=== PATIENT | female | born 1955 | race Caucasian/White ===

== ENCOUNTER 2017-04-21 10:36 | Inpatient (IN) | payer MEDICARE, SELFPAY ==
[~2017-04-21] VITALS: Ht 154.9 cm; Wt 73.0 kg
[~2017-04-21 10:36] MED LIST: ALBU90OI INH; ATEN25 PO; CALCA500CH PO; CIPR500; CIPR500 PO; CYCL10 PO; Cholestyramine L4 GM PO; ESTR1 PO; FAMO20 PO; HYDACE5 PO; Hydrochloroth12.5 MG PO; LEVSOD100; LEVSOD137 PO; LEVSOD25; LOSA50 PO; LOSHYD100 PO; METR500 PO; MULVITMIND PO; ONDA4ODT PO; PROBIOTIC1 EAC1 PO; TELM40 PO; TELM80/12.5 PO; TRAM50 PO; TRIA80TC TOP; VALS80; [UNRECOGNIZED DRUG - REMARK]
[2017-04-21 11:15] LABS: BASOPHILS ABSOLUTE AUTO 0.05 K/mm3 (0.00-0.23); BASOPHILS PERCENT AUTO 0 % (0-2); EOSINOPHILS PERCENT AUTO 0 % (0-6); Hematocrit 40.5 % (33.0-51.0); IMMATURE GRAN ABSOLUTE AUTO 0.16 K/mm3 (0.00-0.10); IMMATURE GRAN PERCENT AUTO 1 % (0-1); LYMPHOCYTES ABSOLUTE AUTO 0.66 K/mm3 (0.84-5.20); LYMPHOCYTES PERCENT AUTO 3 % (21-46); MONOCYTES ABSOLUTE AUTO 1.03 K/mm3 (0.16-1.47); MONOCYTES PERCENT AUTO 5 % (4-13); Mean Corpuscular HGB 30.8 pg (26.0-34.0); Mean Corpuscular HGB Conc 34.6 g/dL (31.5-36.5); Mean Corpuscular Volume 89 fL (80-100); NEUTROPHILS ABSOLUTE AUTO 18.78 K/mm3 (1.96-9.15); NEUTROPHILS PERCENT AUTO 91 % (41-73); RDW Coefficient Variation 12.2 % (11.7-14.2); Red Blood Cell Count 4.54 M/mm3 (3.80-5.20); White Blood Cell Count 20.68 K/mm3 (4.00-11.30)
[2017-04-21 11:16] LABS: Mean Platelet Volume 9.2 fL (9.1-12.4); Platelet Count 321 K/mm3 (150-400)
[2017-04-21 11:39] LABS: Albumin, Blood 3.1 g/dL (3.4-5.0); Albumin/Globulin Ratio 0.6 (0.8-1.8); Bilirubin, Total 0.6 mg/dL (0.1-1.0); Calcium, Blood 8.4 mg/dL (8.5-10.1); Creatinine, Blood 2.22 mg/dL (0.40-1.00); Potassium, Blood 2.9 mmol/L (3.5-5.5); Total Protein, Blood 8.1 g/dL (6.4-8.2); Troponin I 0.142 ng/mL (0.000-0.040)
[2017-04-21 11:39] LABS: Source, Urine Clean Catch
[2017-04-21 11:48] LABS: Appearance, Urine Cloudy (Clear); Bilirubin, Urine Neg (Neg); Blood, Urine 3+ (Neg); Color, Urine Yellow (P-Yellow); Glucose Qualitative, Urine Neg (Neg); Ketones, Urine Neg (Neg); Leukocyte Esterase, Urine 2+ (Neg); Nitrite, Urine Neg (Neg); Protein, Urine 3+ (Neg); Specific Gravity, Urine 1.025 (1.003-1.022); Urobilinogen, Urine NORM (Normal)
[2017-04-21 12:12] LABS: Bacteria Few /hpf; Squamous Epithelial Cells Rare /hpf (Few)
[2017-04-21 12:14] LABS: Amorphous Mod (0-Heavy)
[2017-04-21 18:06] LABS: Bun/Creatinine Ratio 21.9 (12.0-20.0); Calcium, Blood 7.7 mg/dL (8.5-10.1); Creatinine, Blood 1.55 mg/dL (0.40-1.00); Potassium, Blood 2.9 mmol/L (3.5-5.5); Troponin I 0.127 ng/mL (0.000-0.040)
[2017-04-21 23:25] LABS: Bun/Creatinine Ratio 24.3 (12.0-20.0); Creatinine, Blood 1.15 mg/dL (0.40-1.00); Potassium, Blood 3.1 mmol/L (3.5-5.5)
[2017-04-21 23:26] LABS: Calcium, Blood 6.6 mg/dL (8.5-10.1)
[2017-04-21 23:27] LABS: Magnesium, Blood 1.1 mg/dL (1.6-2.4)
[2017-04-22 04:13] LABS: BASOPHILS ABSOLUTE AUTO 0.02 K/mm3 (0.00-0.23); BASOPHILS PERCENT AUTO 0 % (0-2); EOSINOPHILS PERCENT AUTO 0 % (0-6); Hematocrit 36.6 % (33.0-51.0); Hemoglobin 11.9 g/dL (11.5-16.0); IMMATURE GRAN ABSOLUTE AUTO 0.11 K/mm3 (0.00-0.10); IMMATURE GRAN PERCENT AUTO 1 % (0-1); LYMPHOCYTES ABSOLUTE AUTO 0.56 K/mm3 (0.84-5.20); LYMPHOCYTES PERCENT AUTO 4 % (21-46); MONOCYTES ABSOLUTE AUTO 1.07 K/mm3 (0.16-1.47); MONOCYTES PERCENT AUTO 8 % (4-13); Mean Corpuscular HGB 30.8 pg (26.0-34.0); Mean Corpuscular HGB Conc 32.5 g/dL (31.5-36.5); Mean Platelet Volume 9.6 fL (9.1-12.4); NEUTROPHILS ABSOLUTE AUTO 11.87 K/mm3 (1.96-9.15); NEUTROPHILS PERCENT AUTO 87 % (41-73); Platelet Count 190 K/mm3 (150-400); RDW Coefficient Variation 12.4 % (11.7-14.2); RDW Standard Deviation 43.3 fL (35.1-46.3); Red Blood Cell Count 3.86 M/mm3 (3.80-5.20); White Blood Cell Count 13.63 K/mm3 (4.00-11.30)
[2017-04-22 04:17] LABS: Mean Corpuscular Volume 95 fL (80-100)
[2017-04-22 04:37] LABS: Albumin, Blood 2.2 g/dL (3.4-5.0); Anion Gap 15 mmol/L (6-16); Blood Urea Nitrogen 26 mg/dL (8-24); Bun/Creatinine Ratio 24.5 (12.0-20.0); CO2, Blood 16 mmol/L (21-32); Calcium, Blood 7.2 mg/dL (8.5-10.1); Chloride, Blood 98 mmol/L (98-108); Creatinine, Blood 1.06 mg/dL (0.40-1.00); Glomerular Filtration Rate 56 (60-); Glucose, Blood 63 mg/dL (70-99); Magnesium, Blood 2.5 mg/dL (1.6-2.4); Potassium, Blood 3.3 mmol/L (3.5-5.5); Sodium, Blood 129 mmol/L (136-145)
[2017-04-22 12:50] LABS: Alanine Aminotransfer (ALT/SGP 18 U/L (12-78); Alk Phos 76 U/L (50-136); Anion Gap 10 mmol/L (6-16); Aspartate Aminotrans (AST/SGOT 19 U/L (12-37); Bilirubin, Total 0.2 mg/dL (0.1-1.0); Blood Urea Nitrogen 16 mg/dL (8-24); Bun/Creatinine Ratio 18.9 (12.0-20.0); CO2, Blood 20 mmol/L (21-32); Calcium, Blood 6.6 mg/dL (8.5-10.1); Chloride, Blood 99 mmol/L (98-108); Creatinine, Blood 0.85 mg/dL (0.40-1.00); Glomerular Filtration Rate >60 (60-); Glucose, Blood 82 mg/dL (70-99); Magnesium, Blood 2.4 mg/dL (1.6-2.4); Potassium, Blood 3.2 mmol/L (3.5-5.5); Sodium, Blood 129 mmol/L (136-145)
[2017-04-22 12:51] LABS: Albumin/Globulin Ratio 0.5 (0.8-1.8); Globulin, Blood 3.8 g/dL (2.2-4.0)
[2017-04-22 13:31] LABS: Total Protein, Blood 5.8 g/dL (6.4-8.2)
[2017-04-23 01:11] LABS: Anion Gap 11 mmol/L (6-16); Blood Urea Nitrogen 11 mg/dL (8-24); Bun/Creatinine Ratio 14.6 (12.0-20.0); CO2, Blood 19 mmol/L (21-32); Chloride, Blood 100 mmol/L (98-108); Creatinine, Blood 0.75 mg/dL (0.40-1.00); Glomerular Filtration Rate >60 (60-); Glucose, Blood 89 mg/dL (70-99); Magnesium, Blood 1.7 mg/dL (1.6-2.4); Phosphorus, Blood 1.5 mg/dL (2.5-4.9); Potassium, Blood 3.5 mmol/L (3.5-5.5); Sodium, Blood 130 mmol/L (136-145)
[2017-04-23 04:20] LABS: BASOPHILS ABSOLUTE AUTO 0.02 K/mm3 (0.00-0.23); BASOPHILS PERCENT AUTO 0 % (0-2); EOSINOPHILS ABSOLUTE AUTO 0.02 K/mm3 (0.00-0.68); EOSINOPHILS PERCENT AUTO 0 % (0-6); Hematocrit 28.8 % (33.0-51.0); Hemoglobin 9.8 g/dL (11.5-16.0); IMMATURE GRAN ABSOLUTE AUTO 0.04 K/mm3 (0.00-0.10); IMMATURE GRAN PERCENT AUTO 1 % (0-1); LYMPHOCYTES ABSOLUTE AUTO 0.59 K/mm3 (0.84-5.20); LYMPHOCYTES PERCENT AUTO 10 % (21-46); MONOCYTES ABSOLUTE AUTO 0.48 K/mm3 (0.16-1.47); MONOCYTES PERCENT AUTO 8 % (4-13); Mean Corpuscular HGB 31.2 pg (26.0-34.0); NEUTROPHILS PERCENT AUTO 81 % (41-73); Platelet Count 165 K/mm3 (150-400); RDW Coefficient Variation 12.4 % (11.7-14.2); RDW Standard Deviation 41.2 fL (35.1-46.3); Red Blood Cell Count 3.14 M/mm3 (3.80-5.20); White Blood Cell Count 6.15 K/mm3 (4.00-11.30)
[2017-04-23 04:21] LABS: Mean Corpuscular Volume 92 fL (80-100)
[2017-04-23 04:35] LABS: Anion Gap 9 mmol/L (6-16); Blood Urea Nitrogen 10 mg/dL (8-24); Bun/Creatinine Ratio 13.3 (12.0-20.0); CO2, Blood 21 mmol/L (21-32); Chloride, Blood 101 mmol/L (98-108); Creatinine, Blood 0.75 mg/dL (0.40-1.00); Glomerular Filtration Rate >60 (60-); Glucose, Blood 108 mg/dL (70-99); Potassium, Blood 3.5 mmol/L (3.5-5.5); Sodium, Blood 131 mmol/L (136-145)
[2017-04-24 04:56] LABS: BASOPHILS ABSOLUTE AUTO 0.02 K/mm3 (0.00-0.23); BASOPHILS PERCENT AUTO 0 % (0-2); EOSINOPHILS ABSOLUTE AUTO 0.07 K/mm3 (0.00-0.68); EOSINOPHILS PERCENT AUTO 1 % (0-6); Hematocrit 29.9 % (33.0-51.0); Hemoglobin 9.9 g/dL (11.5-16.0); IMMATURE GRAN ABSOLUTE AUTO 0.04 K/mm3 (0.00-0.10); IMMATURE GRAN PERCENT AUTO 1 % (0-1); LYMPHOCYTES ABSOLUTE AUTO 0.77 K/mm3 (0.84-5.20); LYMPHOCYTES PERCENT AUTO 15 % (21-46); MONOCYTES ABSOLUTE AUTO 0.45 K/mm3 (0.16-1.47); MONOCYTES PERCENT AUTO 9 % (4-13); Mean Corpuscular HGB 30.4 pg (26.0-34.0); Mean Corpuscular HGB Conc 33.1 g/dL (31.5-36.5); Mean Corpuscular Volume 92 fL (80-100); Mean Platelet Volume 9.1 fL (9.1-12.4); NEUTROPHILS ABSOLUTE AUTO 3.86 K/mm3 (1.96-9.15); NEUTROPHILS PERCENT AUTO 74 % (41-73); Platelet Count 200 K/mm3 (150-400); RDW Coefficient Variation 12.3 % (11.7-14.2); RDW Standard Deviation 41.3 fL (35.1-46.3); Red Blood Cell Count 3.26 M/mm3 (3.80-5.20); White Blood Cell Count 5.21 K/mm3 (4.00-11.30)
[2017-04-24 05:18] LABS: Anion Gap 8 mmol/L (6-16); Blood Urea Nitrogen 7 mg/dL (8-24); Bun/Creatinine Ratio 11.2 (12.0-20.0); CO2, Blood 25 mmol/L (21-32); Calcium, Blood 7.6 mg/dL (8.5-10.1); Chloride, Blood 101 mmol/L (98-108); Creatinine, Blood 0.63 mg/dL (0.40-1.00); Glomerular Filtration Rate >60 (60-); Glucose, Blood 89 mg/dL (70-99); Potassium, Blood 3.5 mmol/L (3.5-5.5); Sodium, Blood 134 mmol/L (136-145)
[2017-04-25] MEDS ORDERED: CEFD300 PO (12:12)
[2017-07-10] MEDS ORDERED: LOSARTAN POTAS100 MG PO (21:11)
[2017-07-10] MEDS ORDERED: PROM25 PO (22:04)
[2017-07-10] MEDS ORDERED: Levaquin750 MG PO (22:04)
[2017-07-21] MEDS ORDERED: HYDROCODON-ACE1 EAC4 PO (13:56)
== END 2017-04-25 13:10 | disposition home or self-care (01) | DRG 871 ==
LOC: ER 10:36 → MEDS 13:19 → PCU 13:19 → MEDS 14:35 → ICUW 17:48 → PCU 04-23 13:25
PROVIDERS: Emergency Medicine; Family Medicine; Hospitalist
DX: A41.51 Sepsis due to Escherichia coli [E. coli] (principal); R65.21 Severe sepsis with septic shock; N17.9 Acute kidney failure, unspecified; N10 Acute pyelonephritis; E87.1 Hypo-osmolality and hyponatremia; I10 Essential (primary) hypertension; E88.09 Other disorders of plasma-protein metabolism, not elsewhere classified; E86.9 Volume depletion, unspecified; E03.9 Hypothyroidism, unspecified; R19.7 Diarrhea, unspecified; B96.20 Unspecified Escherichia coli [E. coli] as the cause of diseases classified elsewhere; E87.6 Hypokalemia; Z85.118 Personal history of other malignant neoplasm of bronchus and lung; Z92.21 Personal history of antineoplastic chemotherapy; Z90.2 Acquired absence of lung [part of]; Z87.891 Personal history of nicotine dependence; Z88.6 Allergy status to analgesic agent; Z91.041 Radiographic dye allergy status; Z88.0 Allergy status to penicillin; Z91.09 Other allergy status, other than to drugs and biological substances; Z90.49 Acquired absence of other specified parts of digestive tract
CPT/HCPCS: 36415; 51798; 74176; 80048; 80053; 80069; 81001; 82330; 82947; 83605; 83690; 83735; 84100; 84484; 85025; 86140; 87040; 87077; 87086; 87186; 87493; 93005; 93010; 93306; 94640; 94760; 96361; 96374; 96375; 96376; 97116; 97161; 97530; 99285; C1751; C9113; G8978; G8979; J0360; J0610; J0692; J0696; J1170; J1650; J1956; J2001; J2405; J2765; J3010; J3475; J3480; J7030; J7040; J7050; J7060

== ENCOUNTER → 2017-10-02 | Outpatient (CLI) | payer MEDICARE, SELFPAY ==
[~2017-10-02] MED LIST changes: +CEFD300 PO; +HYDROCODON-ACE1 EAC4 PO; +LOSARTAN POTAS100 MG PO; +Levaquin750 MG PO; +PROM25 PO
[2017-10-03 08:00] LABS: Adenovirus F 40/41 Not Detected (NOT DETECT); Astrovirus Not Detected (NOT DETECT); Campylobacter Sp Not Detected (NOT DETECT); Cryptosporidium Not Detected (NOT DETECT); Cyclospora Cayetanensis Not Detected (NOT DETECT); E. Coli O157 Not Detected (NOT DETECT); Entamoeba Histolytica Not Detected (NOT DETECT); Enteroaggregative E. coli-EAEC Not Detected (NOT DETECT); Enteropathogenic E. coli-EPEC Not Detected (NOT DETECT); Enterotoxigenic E. coli-ETEC Not Detected (NOT DETECT); Giardia Lamblia Not Detected (NOT DETECT); Norovirus GI/GII Not Detected (NOT DETECT); Plesiomonas Shigelloides Not Detected (NOT DETECT); Rotavirus A Not Detected (NOT DETECT); Salmonella Sp Not Detected (NOT DETECT); Sapovirus Not Detected (NOT DETECT); Shiga Toxin-prod E. coli-STEC Not Detected (NOT DETECT); Shigella/Enteroin E. coli-EIEC Not Detected (NOT DETECT); Vibrio Cholerae Not Detected (NOT DETECT); Vibrio Sp Not Detected (NOT DETECT); Yersinia Enterocolitica Not Detected (NOT DETECT)
== END ==
LOC: LAB 11:00 → LAB FUT 09-29 12:05
PROVIDERS: Internal Medicine Gastroenterology
DX: R11.2 Nausea with vomiting, unspecified (principal); R19.7 Diarrhea, unspecified
CPT/HCPCS: 87507

== ENCOUNTER 2017-10-11 09:00 | Day surgery (SDC) | payer MEDICARE, SELFPAY ==
[~2017-10-11] VITALS: Ht 154.9 cm; Wt 68.0 kg
== END 2017-10-11 11:45 | disposition home or self-care (01) ==
LOC: ORSCSDS 09:00
PROVIDERS: Internal Medicine Gastroenterology
PROC: 0DB68ZX Excision of Stomach, Via Natural or Artificial Opening Endoscopic, Diagnostic (ICD-10-PCS; principal; 2017-10-11 10:30)
PROC: 0DBN8ZX Excision of Sigmoid Colon, Via Natural or Artificial Opening Endoscopic, Diagnostic (ICD-10-PCS; principal; 2017-10-11 10:30)
DX: R19.7 Diarrhea, unspecified (principal); R11.2 Nausea with vomiting, unspecified; K25.3 Acute gastric ulcer without hemorrhage or perforation; K63.5 Polyp of colon; K29.70 Gastritis, unspecified, without bleeding; Z86.010 Personal history of colon polyps; K57.30 Diverticulosis of large intestine without perforation or abscess without bleeding; I10 Essential (primary) hypertension; Z87.891 Personal history of nicotine dependence; E03.9 Hypothyroidism, unspecified; Z79.899 Other long term (current) drug therapy
CPT/HCPCS: 87081; 88305; 88342; J1980; J7120

== ENCOUNTER → 2017-11-20 | Outpatient (CLI) | payer MEDICARE ==
[2017-11-21 09:52] LABS: Adenovirus F 40/41 Not Detected (NOT DETECT); Astrovirus Not Detected (NOT DETECT); Campylobacter Sp Not Detected (NOT DETECT); Cryptosporidium Not Detected (NOT DETECT); Cyclospora Cayetanensis Not Detected (NOT DETECT); E. Coli O157 Not Detected (NOT DETECT); Entamoeba Histolytica Not Detected (NOT DETECT); Enteroaggregative E. coli-EAEC Not Detected (NOT DETECT); Enteropathogenic E. coli-EPEC Not Detected (NOT DETECT); Enterotoxigenic E. coli-ETEC Not Detected (NOT DETECT); Giardia Lamblia Not Detected (NOT DETECT); Norovirus GI/GII Not Detected (NOT DETECT); Plesiomonas Shigelloides Not Detected (NOT DETECT); Rotavirus A Not Detected (NOT DETECT); Salmonella Sp Not Detected (NOT DETECT); Sapovirus Not Detected (NOT DETECT); Shiga Toxin-prod E. coli-STEC Not Detected (NOT DETECT); Shigella/Enteroin E. coli-EIEC Not Detected (NOT DETECT); Vibrio Cholerae Not Detected (NOT DETECT); Vibrio Sp Not Detected (NOT DETECT); Yersinia Enterocolitica Not Detected (NOT DETECT)
== END | disposition home or self-care (01) ==
LOC: LAB 11:30 → LAB SHORT 11:30 → EDSTATUS 11-15 11:00 → LAB FUT 11-15 11:00
PROVIDERS: Internal Medicine Gastroenterology
DX: R19.7 Diarrhea, unspecified (principal)
CPT/HCPCS: 87507

== ENCOUNTER 2017-12-08 13:04 | Inpatient (IN) | payer MEDICARE ==
[~2017-12-08] VITALS: Ht 154.9 cm; Wt 72.8 kg
[2017-12-08 13:40] LABS: Source, Urine Clean Catch
[2017-12-08 13:45] LABS: BASOPHILS ABSOLUTE AUTO 0.05 K/mm3 (0.00-0.23); BASOPHILS PERCENT AUTO 0 % (0-2); EOSINOPHILS ABSOLUTE AUTO 0.02 K/mm3 (0.00-0.68); EOSINOPHILS PERCENT AUTO 0 % (0-6); Hematocrit 45.9 % (33.0-51.0); Hemoglobin 16.4 g/dL (11.5-16.0); IMMATURE GRAN ABSOLUTE AUTO 0.08 K/mm3 (0.00-0.10); IMMATURE GRAN PERCENT AUTO 1 % (0-1); LYMPHOCYTES ABSOLUTE AUTO 1.07 K/mm3 (0.84-5.20); LYMPHOCYTES PERCENT AUTO 7 % (21-46); MONOCYTES ABSOLUTE AUTO 1.06 K/mm3 (0.16-1.47); MONOCYTES PERCENT AUTO 7 % (4-13); Mean Corpuscular HGB 32.3 pg (26.0-34.0); Mean Corpuscular HGB Conc 35.7 g/dL (31.5-36.5); Mean Corpuscular Volume 91 fL (80-100); NEUTROPHILS PERCENT AUTO 85 % (41-73); Platelet Count 361 K/mm3 (150-400); RDW Standard Deviation 39.7 fL (35.1-46.3); Red Blood Cell Count 5.07 M/mm3 (3.80-5.20); White Blood Cell Count 15.58 K/mm3 (4.00-11.30)
[2017-12-08 13:46] LABS: Appearance, Urine Turbid (Clear); Blood, Urine 5+ (Neg); Color, Urine Amber (P-Yellow); Glucose Qualitative, Urine Neg (Neg); Ketones, Urine Neg (Neg); Leukocyte Esterase, Urine 3+ (Neg); Nitrite, Urine Pos (Neg); Protein, Urine 4+ (Neg); Specific Gravity, Urine 1.025 (1.003-1.022); Urobilinogen, Urine 3+ (Normal)
[2017-12-08 13:57] LABS: Bilirubin, Urine 3+ (Neg)
[2017-12-08 13:58] LABS: Red Blood Cells, Urine TNTC /hpf (0-2); White Blood Cells, Urine TNTC /hpf (0-5)
[2017-12-08 13:59] LABS: Bacteria Many /hpf; Squamous Epithelial Cells Rare /hpf (Few)
[2017-12-08 14:13] LABS: Alanine Aminotransfer (ALT/SGP 42 U/L (12-78); Albumin/Globulin Ratio 0.9 (0.8-1.8); Alk Phos 121 U/L (50-136); Anion Gap 14 mmol/L (6-16); Aspartate Aminotrans (AST/SGOT 27 U/L (12-37); Bilirubin, Total 0.8 mg/dL (0.1-1.0); Blood Urea Nitrogen 12 mg/dL (8-24); Bun/Creatinine Ratio 15.3 (12.0-20.0); CO2, Blood 25 mmol/L (21-32); Calcium, Blood 9.9 mg/dL (8.5-10.1); Chloride, Blood 91 mmol/L (98-108); Creatinine, Blood 0.79 mg/dL (0.40-1.00); Globulin, Blood 4.5 g/dL (2.2-4.0); Glomerular Filtration Rate >60 (60-); Glucose, Blood 163 mg/dL (70-99); Potassium, Blood 3.3 mmol/L (3.5-5.5); Sodium, Blood 130 mmol/L (136-145); Total Protein, Blood 8.5 g/dL (6.4-8.2)
[2017-12-08] MEDS ORDERED: VANC250 PO (16:33)
[2017-12-08] MEDS ORDERED: LEVSOD125 PO (16:33)
[2017-12-08] MEDS ORDERED: OMEPRAZOLE20 MG PO (16:33)
[2017-12-08] MEDS ORDERED: Prochlorperazin10 MG PO (16:33)
[2017-12-09 05:39] LABS: BASOPHILS ABSOLUTE AUTO 0.03 K/mm3 (0.00-0.23); BASOPHILS PERCENT AUTO 1 % (0-2); EOSINOPHILS ABSOLUTE AUTO 0.07 K/mm3 (0.00-0.68); EOSINOPHILS PERCENT AUTO 1 % (0-6); Hematocrit 30.6 % (33.0-51.0); Hemoglobin 10.6 g/dL (11.5-16.0); IMMATURE GRAN ABSOLUTE AUTO 0.01 K/mm3 (0.00-0.10); IMMATURE GRAN PERCENT AUTO 0 % (0-1); LYMPHOCYTES ABSOLUTE AUTO 1.23 K/mm3 (0.84-5.20); LYMPHOCYTES PERCENT AUTO 20 % (21-46); MONOCYTES ABSOLUTE AUTO 0.43 K/mm3 (0.16-1.47); MONOCYTES PERCENT AUTO 7 % (4-13); Mean Corpuscular HGB 32.8 pg (26.0-34.0); Mean Corpuscular HGB Conc 34.6 g/dL (31.5-36.5); Mean Platelet Volume 8.8 fL (9.1-12.4); NEUTROPHILS ABSOLUTE AUTO 4.36 K/mm3 (1.96-9.15); NEUTROPHILS PERCENT AUTO 71 % (41-73); Platelet Count 190 K/mm3 (150-400); RDW Coefficient Variation 12.2 % (11.7-14.2); RDW Standard Deviation 42.5 fL (35.1-46.3); Red Blood Cell Count 3.23 M/mm3 (3.80-5.20); White Blood Cell Count 6.13 K/mm3 (4.00-11.30)
[2017-12-09 05:40] LABS: Mean Corpuscular Volume 95 fL (80-100)
[2017-12-09 06:13] LABS: Anion Gap 10 mmol/L (6-16); Blood Urea Nitrogen 8 mg/dL (8-24); Bun/Creatinine Ratio 11.2 (12.0-20.0); CO2, Blood 23 mmol/L (21-32); Calcium, Blood 7.3 mg/dL (8.5-10.1); Chloride, Blood 102 mmol/L (98-108); Creatinine, Blood 0.71 mg/dL (0.40-1.00); Glomerular Filtration Rate >60 (60-); Glucose, Blood 119 mg/dL (70-99); Potassium, Blood 3.1 mmol/L (3.5-5.5); Sodium, Blood 135 mmol/L (136-145)
[2017-12-09] MEDS ORDERED: BUDE6HFA INH (16:20)
[2017-12-10 10:34] LABS: BASOPHILS ABSOLUTE AUTO 0.03 K/mm3 (0.00-0.23); BASOPHILS PERCENT AUTO 0 % (0-2); EOSINOPHILS ABSOLUTE AUTO 0.05 K/mm3 (0.00-0.68); EOSINOPHILS PERCENT AUTO 1 % (0-6); Hematocrit 33.1 % (33.0-51.0); Hemoglobin 11.2 g/dL (11.5-16.0); IMMATURE GRAN ABSOLUTE AUTO 0.03 K/mm3 (0.00-0.10); IMMATURE GRAN PERCENT AUTO 0 % (0-1); LYMPHOCYTES ABSOLUTE AUTO 0.66 K/mm3 (0.84-5.20); LYMPHOCYTES PERCENT AUTO 9 % (21-46); MONOCYTES ABSOLUTE AUTO 0.69 K/mm3 (0.16-1.47); MONOCYTES PERCENT AUTO 9 % (4-13); Mean Corpuscular HGB 32.6 pg (26.0-34.0); Mean Corpuscular HGB Conc 33.8 g/dL (31.5-36.5); Mean Corpuscular Volume 96 fL (80-100); Mean Platelet Volume 9.1 fL (9.1-12.4); NEUTROPHILS ABSOLUTE AUTO 6.21 K/mm3 (1.96-9.15); NEUTROPHILS PERCENT AUTO 81 % (41-73); Platelet Count 199 K/mm3 (150-400); RDW Coefficient Variation 12.2 % (11.7-14.2); RDW Standard Deviation 42.6 fL (35.1-46.3); Red Blood Cell Count 3.44 M/mm3 (3.80-5.20); White Blood Cell Count 7.67 K/mm3 (4.00-11.30)
[2017-12-10 10:51] LABS: Anion Gap 10 mmol/L (6-16); Blood Urea Nitrogen 4 mg/dL (8-24); Bun/Creatinine Ratio 7.2 (12.0-20.0); CO2, Blood 26 mmol/L (21-32); Calcium, Blood 7.4 mg/dL (8.5-10.1); Chloride, Blood 97 mmol/L (98-108); Creatinine, Blood 0.55 mg/dL (0.40-1.00); Glomerular Filtration Rate >60 (60-); Glucose, Blood 109 mg/dL (70-99); Potassium, Blood 3.1 mmol/L (3.5-5.5); Sodium, Blood 133 mmol/L (136-145)
[2017-12-10] MEDS ORDERED: HYDR1TAB94 PO (13:31)
[2017-12-10] MEDS ORDERED: OMEPRAZOLE MAGN20 MG PO (13:32)
[2017-12-10] MEDS ORDERED: K-Dur 20 meq T20 MEQ PO (13:33)
[2017-12-10] MEDS ORDERED: VANC125 PO (13:34)
[2017-12-10] MEDS ORDERED: AMLO5 PO (13:35)
[2017-12-10] MEDS ORDERED: CEFD300 PO (13:35)
== END 2017-12-10 14:12 | disposition home or self-care (01) | DRG 690 ==
LOC: ER 13:04 → MEDS 15:10 → ENPENDDIS 12-10 11:00 → MEDS 12-10 14:12
PROVIDERS: Emergency Medicine; Hospitalist; Internal Medicine
DX: N10 Acute pyelonephritis (principal); E87.1 Hypo-osmolality and hyponatremia; N39.0 Urinary tract infection, site not specified; E87.6 Hypokalemia; J44.9 Chronic obstructive pulmonary disease, unspecified; I10 Essential (primary) hypertension; R11.10 Vomiting, unspecified; E03.9 Hypothyroidism, unspecified; Z85.118 Personal history of other malignant neoplasm of bronchus and lung; Z92.21 Personal history of antineoplastic chemotherapy; Z87.891 Personal history of nicotine dependence; Z88.6 Allergy status to analgesic agent; Z88.5 Allergy status to narcotic agent; Z88.0 Allergy status to penicillin; Z88.8 Allergy status to other drugs, medicaments and biological substances; Z79.899 Other long term (current) drug therapy
CPT/HCPCS: 36415; 51798; 80048; 80053; 81001; 83605; 83690; 85025; 87077; 87086; 87186; 87493; 94640; 94667; 94760; 96361; 96365; 96375; 99284-25; J0696; J0744; J0780; J1650; J2405; J3480; J7030

== ENCOUNTER 2018-08-08 05:33 | Inpatient (IN) | payer MEDICARE ==
[~2018-08-08] VITALS: Ht 154.9 cm; Wt 66.2 kg
[~2018-08-08 05:33] MED LIST changes: +AMLO5 PO; +BUDE6HFA INH; +HYDR1TAB94 PO; +K-Dur 20 meq T20 MEQ PO; +LEVSOD125 PO; +OMEPRAZOLE MAGN20 MG PO; +OMEPRAZOLE20 MG PO; +Prochlorperazin10 MG PO; +VANC125 PO; +VANC250 PO
[2018-08-08 06:04] LABS: BASOPHILS ABSOLUTE AUTO 0.03 K/mm3 (0.00-0.23); BASOPHILS PERCENT AUTO 0 % (0-2); EOSINOPHILS PERCENT AUTO 0 % (0-6); Hematocrit 52.8 % (33.0-51.0); IMMATURE GRAN ABSOLUTE AUTO 0.08 K/mm3 (0.00-0.10); IMMATURE GRAN PERCENT AUTO 1 % (0-1); LYMPHOCYTES ABSOLUTE AUTO 1.28 K/mm3 (0.84-5.20); LYMPHOCYTES PERCENT AUTO 8 % (21-46); MONOCYTES ABSOLUTE AUTO 0.96 K/mm3 (0.16-1.47); MONOCYTES PERCENT AUTO 6 % (4-13); Mean Corpuscular HGB 32.5 pg (26.0-34.0); Mean Corpuscular HGB Conc 34.1 g/dL (31.5-36.5); Mean Corpuscular Volume 96 fL (80-100); Mean Platelet Volume 10.1 fL (9.1-12.4); NEUTROPHILS ABSOLUTE AUTO 13.67 K/mm3 (1.96-9.15); NEUTROPHILS PERCENT AUTO 85 % (41-73); Platelet Count 280 K/mm3 (150-400); RDW Coefficient Variation 11.7 % (11.7-14.2); RDW Standard Deviation 41.1 fL (35.1-46.3); Red Blood Cell Count 5.53 M/mm3 (3.80-5.20); White Blood Cell Count 16.02 K/mm3 (4.00-11.30)
[2018-08-08] MEDS ORDERED: METOPROLOL (06:23)
[2018-08-08 06:32] LABS: Albumin, Blood 4.9 g/dL (3.4-5.0); Albumin/Globulin Ratio 1.1 (0.8-1.8); Bun/Creatinine Ratio 19.7 (12.0-20.0); Calcium, Blood 10.7 mg/dL (8.5-10.1); Creatinine, Blood 1.88 mg/dL (0.40-1.00); Globulin, Blood 4.6 g/dL (2.2-4.0); Potassium, Blood 3.3 mmol/L (3.5-5.5); Total Protein, Blood 9.5 g/dL (6.4-8.2)
[2018-08-08 07:02] LABS: Source, Urine Clean Catch
[2018-08-08 07:04] LABS: Appearance, Urine Hazy (Clear); Bilirubin, Urine Neg (Neg); Blood, Urine 3+ (Neg); Color, Urine Yellow (P-Yellow); Glucose Qualitative, Urine Neg (Neg); Ketones, Urine 2+ (Neg); Leukocyte Esterase, Urine 2+ (Neg); Nitrite, Urine Neg (Neg); Protein, Urine 3+ (Neg); Urobilinogen, Urine NORM (Normal)
[2018-08-08 07:21] LABS: Bacteria Mod /hpf; Squamous Epithelial Cells Mod /hpf (Few); Transitional Epithelial Cells Few /hpf (0-Rare)
[2018-08-08] MEDS ORDERED: TRIA15CR3 TOP (09:37)
--- NOTE | 2018-08-08 13:41 | NUR ---
Echocardiogram completed.
[2018-08-08 15:15] LABS: Creatinine, Urine Random 40.5 mg/dL (27.00-270.00)
--- NOTE | 2018-08-08 18:01 | NUR ---
SHIFT SUMMARY: PT TRANSFERRED FROM MEDICAL FLOOR THIS SHIFT FOR ACTIVE CHEST PAIN. DR GOMES SAW PT AND FEELS PT'S N/V IS RELATED TO A VIRUS AND RENAL AND CARDIAC ISSUES ENSUED FROM THAT. FAMILY AT BEDSIDE. PLAN IS TO REHYDRATE AND CONTINUE TO MONITOR
--- NOTE | 2018-08-08 19:30 | NUR ---
ASSUMED CARE BEDSIDE REPORT RECIEVED. PT IS LAYING IN BED ALERT, ORIENTED, AND FOLLOWING COMMANDS APPROPRIATELY. PT IS COMPLAINING OF SOME BACK AND ABD PAIN AT THIS TIME. VITAL SIGNS STABLE ON 2L O2 NC. NS WITH 20 MEQ OF POTASSIUM INFUSING AT 100 ML/HR. PT IS REPOSITIONING SELF IN BED INDEPENDENTLY. WILL CONTINUE TO MONITOR.
--- NOTE | 2018-08-08 19:31 | NUR ---
RAPID RESPONSE CALLED THIS SHIFT: RAPID RESPONSE CALLED THIS SHIFT R/T DETERIORATION IN PATIENT CONDITION. ACUTE AR SUSPECTED; PT C/O CHEST/ABD PAIN. ASA 325MG GIVEN; NITRO TOP APPLIED; PATIENT TRANSFER TO ICU.
--- NOTE | 2018-08-09 01:49 | NUR ---
TRANSFER TO PCU REPORT CALLED TO JONO BELL TO ASSUME CARE. ALL QUESTIONS ANSWERED. PT TO BE TAKEN TO PCU 16. ALL BELONGINGS AND MEDS TAKEN WITH PT.
--- NOTE | 2018-08-09 01:50 | NUR ---
0150: PT ARRIVES TO ROOM 16 VIA BED FROM ICU AND TRANSFERS SELF TO BED; APPEARS STEADY ON FEET. SBA FOR BRP AND MIN ASSIST TO REPOSITION IN BED. PT APPEARS A&O, AND SOB WITH EXERTION ON 2L O2 VIA NC, TELE SINUS DORA 50-60'S. NS + 20 MEQ K+ INFUSING @ 100 ML/HR. WHITE BOARD UPDATED AND CALL LIGHT IN REACH.
[2018-08-09 04:19] LABS: BASOPHILS PERCENT AUTO 0 % (0-2); EOSINOPHILS PERCENT AUTO 0 % (0-6); Hematocrit 39.5 % (33.0-51.0); IMMATURE GRAN ABSOLUTE AUTO 0.03 K/mm3 (0.00-0.10); IMMATURE GRAN PERCENT AUTO 0 % (0-1); LYMPHOCYTES ABSOLUTE AUTO 0.54 K/mm3 (0.84-5.20); LYMPHOCYTES PERCENT AUTO 7 % (21-46); MONOCYTES ABSOLUTE AUTO 0.42 K/mm3 (0.16-1.47); MONOCYTES PERCENT AUTO 5 % (4-13); Mean Corpuscular HGB 32.3 pg (26.0-34.0); Mean Corpuscular HGB Conc 32.9 g/dL (31.5-36.5); Mean Corpuscular Volume 98 fL (80-100); NEUTROPHILS ABSOLUTE AUTO 7.07 K/mm3 (1.96-9.15); NEUTROPHILS PERCENT AUTO 88 % (41-73); Platelet Count 171 K/mm3 (150-400); RDW Coefficient Variation 11.7 % (11.7-14.2); Red Blood Cell Count 4.02 M/mm3 (3.80-5.20); White Blood Cell Count 8.06 K/mm3 (4.00-11.30)
[2018-08-09 04:35] LABS: Albumin, Blood 3.6 g/dL (3.4-5.0); Anion Gap 7 mmol/L (6-16); Blood Urea Nitrogen 25 mg/dL (8-24); Bun/Creatinine Ratio 25.5 (12.0-20.0); CHOL/HDL RATIO 3.4; CO2, Blood 24 mmol/L (21-32); Chloride, Blood 101 mmol/L (98-108); Cholesterol 152 mg/dL (50-200); Creatinine, Blood 0.98 mg/dL (0.40-1.00); Glomerular Filtration Rate >60 (60-); Glucose, Blood 133 mg/dL (70-99); HDL Cholesterol 45 mg/dL (>39); LDL/HDL RATIO 1.7; Low Density Lipoprotein Chol 74 mg/dL (0-110); Magnesium, Blood 2.3 mg/dL (1.6-2.4); Phosphorus, Blood 3.5 mg/dL (2.5-4.9); Potassium, Blood 3.7 mmol/L (3.5-5.5); Sodium, Blood 132 mmol/L (136-145); Triglycerides 163 mg/dL (30-160); Very Low Density Lipoprot Chol 32 mg/dL (6-32)
[2018-08-09 04:42] LABS: Calcium, Blood 7.9 mg/dL (8.5-10.1)
--- NOTE | 2018-08-09 18:11 | NUR ---
SHIFT SUMMARY PT ALERT AND ORIENTED. VS STABLE. O2 SATS HAVE REMAINED ABOVE 90% ON 1L NC. IV IS SALINE LOCKED. PT HAS COMPLAINED OF PAIN IN HER LOWER BACK THROUGHOUT SHIFT THAT IS RELIEVED WITH MEDICATION ADMINISTRATION. PT HAS BEEN ABLE TO AMBULATE TO BATHROOM NEED WITH SBA. PT COMPLAINS OF MILD NAUSEA AT TIMES, BUT HAS NOT VOMITTED THIS SHIFT. WILL CONTINUE TO MONITOR AND REPORT TO ONCOMING RN. CALL LIGHT IN REACH. PT EATING DINNER AT THIS TIME.
--- NOTE | 2018-08-09 19:04 | NUR ---
transfer report from [facility] for PCU on PT with multiple medical problems including lung cancer with rt lobectomy copd and gastritis per rn report. Continues with abd pain and nitropaste to chest for reported nonstemi. on oxygen 1 l nc recieving morphine 4 mg q 2 hrs prn and using prn for abd pain. await transfer.
--- NOTE | 2018-08-09 20:00 | NUR ---
RECEIVED REPORT FROM DAY NURSE USING SBAR WHO STATED THAT REPORT HAD ALREADY BEEN CALLED TO NURSE RECEIVEING PT AND WAS ONLY WAITING ON TRANSPORT. ALL ELONGINGS GATHERED AND TAKEN WITH PT TO ROOM 336 VIA WHEELCHAIR AFTER SHE USED COMMODE AND WAS GIVEN 4MG MORPHINE IVP FOR 8/10 PAIN TO LOW AND MIDDLE BACK PER MD ORDERS. BROADCAST TO MEDICAL FLOOR UPON DEPARTURE.
--- NOTE | 2018-08-10 06:26 | NUR ---
62 year old female transferred from PCU and she has been NSR with occ PVCS. PT with NSTEMI and she had renal issues. She is voidingadequate amts of dark yellow urine. Very poor appetite , hx of bowel resection and multiple surgeries over 20. She has strong family hx of sudden cardiac and verbalized anxiety over AL. Denies chest pain . Acute bilat kidney and low back pain required at least 11 admin of 4 mg morphine Q 2 hours PRN with mild helpful effect. PT with PTSD and anxiety and has therapy to treat. Nausea and dry heaves. intermittantly wears 2 l oxygen. exsmoker 2017 stage 3 lung cancer with rt lobectomy lower lobes with chemo following. Pt says recently in remission with pet scan.
[2018-08-10 10:21] LABS: Anion Gap 8 mmol/L (6-16); Blood Urea Nitrogen 15 mg/dL (8-24); Bun/Creatinine Ratio 19.4 (12.0-20.0); CO2, Blood 24 mmol/L (21-32); Calcium, Blood 8.2 mg/dL (8.5-10.1); Chloride, Blood 104 mmol/L (98-108); Creatinine, Blood 0.77 mg/dL (0.40-1.00); Glomerular Filtration Rate >60 (60-); Glucose, Blood 71 mg/dL (70-99); Potassium, Blood 2.9 mmol/L (3.5-5.5); Sodium, Blood 136 mmol/L (136-145)
[2018-08-10 17:11] LABS: Potassium, Blood 3.7 mmol/L (3.5-5.5); Troponin I 0.045 ng/mL (0.000-0.040)
--- NOTE | 2018-08-10 18:52 | NUR ---
PT WITH INTERMITANT NAUSEA, REPORT ALMOST CONTINOUS "KIDNEY & BACK" PAIN, RECEIVING PAIN MEDS Q2 HOURS, SEE EMAR. DID C/O OF SOME CHEST PAIN THIS AFTERNOON, STAT EKG SHOWED SB WITH SINUS ARRHYTHMIA, STRESS TEST ORDERED FOR THE AM. WILL CONTINUE TO MONITOR AND REPORT TO ONCOMING RN
--- NOTE | 2018-08-11 04:37 | NUR ---
*SHIFT SUMMARY* PATIENT IS ALERT AND ORIENTED. HAS HAD PAIN THROUGHOUT THE NIGHT, PT REPORTS THE MORPHINE DOES DECREASE PAIN BUT ONLY FOR ABOUT AN HOUR. ULTRAM GIVEN ONCE AND PT REPORTS THAT HELPS SOME WELL. PT USED K-PAD ON BACK AND REPORTS THIS HELPS WITH THE PAIN WELL. PT UP TO THE BATHROOM INDEPENDENTLY. PT HAS BEEN NPO SINCE MIDNIGHT FOR STRESS TEST IN AM. NO OTHER CHANGES THROUGHOUT THE NIGHT. VITALS STABLE.
[2018-08-11 06:24] LABS: Anion Gap 10 mmol/L (6-16); Blood Urea Nitrogen 11 mg/dL (8-24); Bun/Creatinine Ratio 15.8 (12.0-20.0); CO2, Blood 22 mmol/L (21-32); Calcium, Blood 8.5 mg/dL (8.5-10.1); Chloride, Blood 105 mmol/L (98-108); Glomerular Filtration Rate >60 (60-); Glucose, Blood 76 mg/dL (70-99); Potassium, Blood 3.8 mmol/L (3.5-5.5); Sodium, Blood 137 mmol/L (136-145)
--- NOTE | 2018-08-11 17:38 | NUR ---
SUMMARY PT SITTING UP IN BED EATING DINNER, PT HAS BEEN INDEPENDENT IN THE ROOM, PT MED PER EMAR FOR PAIN, STRESS TEST HAS BEEN DONE AND IS NEGATIVE, POSSIBLE PLAN FOR DC IN AM, VSS, NO ACUTE CHANGES, WILL CONT TO MONITOR
--- NOTE | 2018-08-12 04:26 | NUR ---
SHIFT SUMMARY PATIENT IS ALERT AND ORIENTED. PATIENT STILL COMPLAINING OF BACK PAIN IN KIDNEY AREA. MEDICATING PAIN WITH PAIN MEDS ORDERED. PT USING K-PAD FOR PAIN RELIEF WELL. PT SLEPT OFF AND ON THROUGHOUT NIGHT. NO VOMITING. VITAL SIGNS STABLE.
[2018-08-12] MEDS ORDERED: TRAM50 PO (11:00)
[2018-08-12] MEDS ORDERED: METO50 PO (11:00)
[2018-08-12] MEDS ORDERED: OMEPRAZOLE MAGN20 MG PO (11:01)
[2018-08-12] MEDS ORDERED: CLOP75 PO (11:12)
--- NOTE | 2018-08-12 13:42 | NUR ---
SUMMARY/DISCHARGE PT DISCHARGED TO HOME, PT VERBALIZED UNDERSTANDING OF MEDICATIONS AND FOLLOW UP NEEDED, PCP OFFICE CLOSED, PT ADVISED TO CALL FIRST THING MONDAY TO SET UP AN APPOINTMENT, PT TAKEN OUT SAFELY VIA WHEELCHAIR
== END 2018-08-12 13:08 | disposition home or self-care (01) | DRG 682 ==
LOC: ER 05:33 → MEDS 08:38 → PCU 09:20 → ICUE 11:04 → PCU 08-09 02:02 → MEDS 08-09 20:02 → ENPENDDIS 08-12 10:52 → MEDS 08-12 13:08
PROVIDERS: Emergency Medicine; ADMIT Internal Medicine
DX: N17.0 Acute kidney failure with tubular necrosis (principal); I21.A1 Myocardial infarction type 2; E87.1 Hypo-osmolality and hyponatremia; N39.0 Urinary tract infection, site not specified; M47.812 Spondylosis without myelopathy or radiculopathy, cervical region; Z87.891 Personal history of nicotine dependence; E86.0 Dehydration; Z92.21 Personal history of antineoplastic chemotherapy; I10 Essential (primary) hypertension; E03.9 Hypothyroidism, unspecified; L40.50 Arthropathic psoriasis, unspecified; Z90.49 Acquired absence of other specified parts of digestive tract; K29.50 Unspecified chronic gastritis without bleeding; I45.10 Unspecified right bundle-branch block; E83.42 Hypomagnesemia; A08.4 Viral intestinal infection, unspecified; Z90.2 Acquired absence of lung [part of]
CPT/HCPCS: 36415; 71275; 74022; 78452; 80048; 80053; 80061; 80069; 81001; 82570; 83690; 83735; 84132; 84300; 84484; 85025; 87086; 93005; 93010; 93017; 93306; 94640; 94760; 96361; 96365; 96375; 96376; 99285-25; A9500; C9113; J0696; J0706; J1200; J1644; J2270; J2405; J2765; J2785; J2930; J3010; J3475; J3480; J7030; J7050; Q9967

== ENCOUNTER 2018-08-23 04:30 | Emergency (ER) | payer MEDICARE ==
[~2018-08-23] VITALS: Ht 154.9 cm; Wt 61.2 kg
[~2018-08-23 04:30] MED LIST changes: +CLOP75 PO; +METO50 PO; +METOPROLOL; +TRIA15CR3 TOP
[2018-08-23 05:05] LABS: BASOPHILS ABSOLUTE AUTO 0.05 K/mm3 (0.00-0.23); BASOPHILS PERCENT AUTO 0 % (0-2); EOSINOPHILS ABSOLUTE AUTO 0.07 K/mm3 (0.00-0.68); EOSINOPHILS PERCENT AUTO 0 % (0-6); Hematocrit 46.2 % (33.0-51.0); Hemoglobin 15.7 g/dL (11.5-16.0); IMMATURE GRAN ABSOLUTE AUTO 0.05 K/mm3 (0.00-0.10); IMMATURE GRAN PERCENT AUTO 0 % (0-1); LYMPHOCYTES PERCENT AUTO 7 % (21-46); MONOCYTES PERCENT AUTO 4 % (4-13); Mean Corpuscular HGB 32.4 pg (26.0-34.0); Mean Corpuscular Volume 95 fL (80-100); Mean Platelet Volume 9.5 fL (9.1-12.4); NEUTROPHILS ABSOLUTE AUTO 15.54 K/mm3 (1.96-9.15); NEUTROPHILS PERCENT AUTO 88 % (41-73); Platelet Count 390 K/mm3 (150-400); RDW Coefficient Variation 11.6 % (11.7-14.2); RDW Standard Deviation 40.4 fL (35.1-46.3); Red Blood Cell Count 4.85 M/mm3 (3.80-5.20); White Blood Cell Count 17.71 K/mm3 (4.00-11.30)
[2018-08-23 05:27] LABS: Alanine Aminotransfer (ALT/SGP 29 U/L (12-78); Albumin, Blood 3.9 g/dL (3.4-5.0); Albumin/Globulin Ratio 0.9 (0.8-1.8); Alk Phos 120 U/L (50-136); Anion Gap 8 mmol/L (6-16); Aspartate Aminotrans (AST/SGOT 21 U/L (12-37); Bilirubin, Total 0.7 mg/dL (0.1-1.0); Blood Urea Nitrogen 16 mg/dL (8-24); Bun/Creatinine Ratio 18.3 (12.0-20.0); CO2, Blood 26 mmol/L (21-32); Calcium, Blood 9.9 mg/dL (8.5-10.1); Chloride, Blood 98 mmol/L (98-108); Creatinine, Blood 0.88 mg/dL (0.40-1.00); Globulin, Blood 4.2 g/dL (2.2-4.0); Glomerular Filtration Rate >60 (60-); Glucose, Blood 125 mg/dL (70-99); Sodium, Blood 132 mmol/L (136-145); Total Protein, Blood 8.1 g/dL (6.4-8.2)
[2018-08-23 08:54] LABS: Source, Urine Clean Catch
[2018-08-23 09:03] LABS: Bilirubin, Urine Neg (Neg); Blood, Urine Neg (Neg); Glucose Qualitative, Urine Neg (Neg); Ketones, Urine 1+ (Neg); Leukocyte Esterase, Urine 1+ (Neg); Nitrite, Urine Neg (Neg); Protein, Urine 1+ (Neg); Urobilinogen, Urine NORM (Normal)
[2018-08-23 09:08] LABS: Appearance, Urine Clear (Clear); Color, Urine Yellow (P-Yellow)
[2018-08-23 09:11] LABS: Red Blood Cells, Urine 0-2 /hpf (0-2)
[2018-08-23 09:12] LABS: Transitional Epithelial Cells Few /hpf (0-Rare)
[2018-08-23 09:14] LABS: Bacteria Few /hpf; Squamous Epithelial Cells Mod /hpf (Few)
== END 2018-08-23 10:45 | disposition home or self-care (01) ==
LOC: ER 04:30
PROVIDERS: Emergency Medicine
DX: I25.10 Atherosclerotic heart disease of native coronary artery without angina pectoris (principal); I10 Essential (primary) hypertension; Z88.0 Allergy status to penicillin; Z88.6 Allergy status to analgesic agent; Z88.8 Allergy status to other drugs, medicaments and biological substances; Z88.5 Allergy status to narcotic agent; Z79.899 Other long term (current) drug therapy; Z85.118 Personal history of other malignant neoplasm of bronchus and lung; Z87.891 Personal history of nicotine dependence
CPT/HCPCS: 36415; 71046; 80053; 81001; 83690; 84484; 85025; 87086; 93005; 93010; 96360; 96361; 99284-25; J7030

== ENCOUNTER 2018-10-29 11:32 | Day surgery (SDC) | payer MEDICARE, SELFPAY ==
[~2018-10-29] VITALS: Ht 154.9 cm; Wt 62.5 kg
[~2018-10-29 11:32] MED LIST changes: +ASPI81CH PO; +LEVSOD100 PO; -LEVSOD125 PO; +Lipitor20 MG; +METO25ER; +NITR.4SL SL; -ONDA4ODT PO; -TRIA15CR3 TOP; +VENL75ER PO
== END 2018-10-29 13:29 | disposition home or self-care (01) ==
LOC: ORSCSDS 11:32
PROVIDERS: Internal Medicine Gastroenterology
PROC: 0DB78ZX Excision of Stomach, Pylorus, Via Natural or Artificial Opening Endoscopic, Diagnostic (ICD-10-PCS; principal; 2018-10-29 13:00)
DX: K29.50 Unspecified chronic gastritis without bleeding (principal); E03.9 Hypothyroidism, unspecified; J44.9 Chronic obstructive pulmonary disease, unspecified; Z99.81 Dependence on supplemental oxygen; I25.2 Old myocardial infarction; Z87.891 Personal history of nicotine dependence; R74.8 Abnormal levels of other serum enzymes; Z79.899 Other long term (current) drug therapy
CPT/HCPCS: 88305; 88341; 88342; J2704; J7120

== ENCOUNTER 2018-12-17 16:39 | Inpatient (IN) | payer MEDICARE, OTHER ==
[~2018-12-17] VITALS: Ht 154.9 cm; Wt 67.7 kg
[2018-12-17 17:13] LABS: BASOPHILS ABSOLUTE AUTO 0.06 K/mm3 (0.00-0.23); BASOPHILS PERCENT AUTO 1 % (0-2); EOSINOPHILS ABSOLUTE AUTO 0.08 K/mm3 (0.00-0.68); EOSINOPHILS PERCENT AUTO 1 % (0-6); Hematocrit 38.1 % (33.0-51.0); Hemoglobin 13.2 g/dL (11.5-16.0); IMMATURE GRAN ABSOLUTE AUTO 0.04 K/mm3 (0.00-0.10); IMMATURE GRAN PERCENT AUTO 0 % (0-1); LYMPHOCYTES PERCENT AUTO 9 % (21-46); MONOCYTES ABSOLUTE AUTO 0.71 K/mm3 (0.16-1.47); MONOCYTES PERCENT AUTO 7 % (4-13); Mean Corpuscular HGB 31.8 pg (26.0-34.0); Mean Corpuscular HGB Conc 34.6 g/dL (31.5-36.5); Mean Corpuscular Volume 92 fL (80-100); NEUTROPHILS PERCENT AUTO 82 % (41-73); RDW Coefficient Variation 12.1 % (11.7-14.2); RDW Standard Deviation 40.8 fL (35.1-46.3); Red Blood Cell Count 4.15 M/mm3 (3.80-5.20); White Blood Cell Count 10.69 K/mm3 (4.00-11.30)
[2018-12-17 17:34] LABS: Platelet Count 319 K/mm3 (150-400)
[2018-12-17] MEDS ORDERED: ATORVASTATIN CA40 MG PO (19:43)
[2018-12-17] MEDS ORDERED: Betamethasone D60 ML TP (19:43)
[2018-12-17 20:04] LABS: Troponin I <0.015 ng/mL (0.000-0.040)
[2018-12-17 20:18] LABS: Alanine Aminotransfer (ALT/SGP 44 U/L (12-78); Albumin, Blood 4.2 g/dL (3.4-5.0); Alk Phos 152 U/L (50-136); Anion Gap 11 mmol/L (6-16); Aspartate Aminotrans (AST/SGOT 34 U/L (12-37); Bilirubin, Total 0.6 mg/dL (0.1-1.0); Blood Urea Nitrogen 11 mg/dL (8-24); Bun/Creatinine Ratio 23.8 (12.0-20.0); CO2, Blood 25 mmol/L (21-32); Calcium, Blood 9.5 mg/dL (8.5-10.1); Chloride, Blood 97 mmol/L (98-108); Creatinine, Blood 0.46 mg/dL (0.40-1.00); Glomerular Filtration Rate >60 (60-); Glucose, Blood 86 mg/dL (70-99); Potassium, Blood 3.2 mmol/L (3.5-5.5); Sodium, Blood 133 mmol/L (136-145); Total Protein, Blood 8.2 g/dL (6.4-8.2)
--- NOTE | 2018-12-18 06:07 | NUR ---
ASSUMED CARE APPROXIMATELY 0400 FROM ED; PT TRANSFERED TO BED; IS ALERT AND ORIENTED; AMBULATES TO BATHROOM W/ ASSISTANCE; PT USES OXYGEN AT HOME 2L NC AT BEDTIME; PT RESTED EASILY IN BETWEEN INTERVENTIONS; PT EDUCATION SHEET COMBINING OPERATOR LIGHT AND REMINDED TO CALL FOR ASSISTANCE BEFORE AMBULATION; BED IN LOWEST POSITION; CALL LIGHT W/IN REACH; WILL CONTINUE TO MONITOR AND ASSESS UNTIL HANDOFF TO DAY SHIFT RN.
--- NOTE | 2018-12-18 07:44 | NUR ---
UPDATE PT C/O CHEST PAIN AND PAIN IN MIDDLE OF HER BACK; PT STATED THE PAIN WAS 7 OF 10; NITRO TABS X2 WAS ADMINISTERED; PT REPORTED EASE OF PAIN AND RATED 4 OF 10; WILL CONTINUE TO ASSESS UNTIL END OF SHIFT
--- NOTE | 2018-12-18 08:00 | NUR ---
pt laying in bed awake a/ox3, pleasant and cooperative with care, follows commands well, reports some chest pressure, rates it at 8/10. states she had some ntg with good relief, but didn't last long, had charge nurse call while this nurse obtained an ekg, she is also getting an echo at this time. vs stable. lung are clear in upper stallings, dim in bases, janes right base, she is on 02 which she uses only at night at home, but will leave on due to chest pain, hrirr, tele in place running afib per monitor, see strip, no edema noted, pas in place, ppp+1, cap refill <3sec, iv site is clear and patent, to rac, btx4, abd flat soft nontender, voids without diff, skin has bruisings all over, and on face, she reports a fall last week and hit the trash can at home, and is on plavix and is bruising easily, no open areas, edwardo raza, call light in reach. recieved an order for morphine, 4mg was given, with good relief, down to a 3, she reports pain across her epigastric area and between her shoulders in her back does become sob, and became diaphoretic while pain was high.
--- NOTE | 2018-12-18 10:34 | NUR ---
statistical machine mechanic in to see her, will be taking her to the excavation laborer within the hr, will medicate for iodine allergy. she states pain is about a 5 at this time.
--- NOTE | 2018-12-18 11:25 | NUR ---
PT WAS GIVEN PREMEDS FOR IODINE ALLERGY, AND WAS TAKEN TO THE READING AIDE VIA BED.
--- NOTE | 2018-12-18 12:59 | NUR ---
PT RETURNED TO ROOM AFTER CATH, RECIEVED ONE STENT TO RCA, SHE IS AWAKE. HTN, WILL MONITOR, TR BAND IS CLEAR. SPOUCE IN ROOM. CALL LIGHT IN REACH.
--- NOTE | 2018-12-18 15:00 | NUR ---
PT REPORTS HER BREATHING IS AMAZINGLY BETTER, IS DOING WELL, TR BAND WILL BRUISE. VS STABLE. NO FURTHE COMPLAINTS. CALL LIGHT IN REACH.
--- NOTE | 2018-12-19 02:35 | NUR ---
WOUND ASSESSMENT AT APPROX 1950 HRS 12/18/18 PT'S TR BAND REMOVED PER PROTOCOL. FINAL MLS OF AIR REMOVED PREVIOUS SHIFT. WOUND SITE INTACT, CLEANED WITH ALCOHOL, COVERED WITH WINDOW DRESSING. NO BRUISING, REDNESS, SWELLING, OR HEAT AT WOUND SITE; SENSATION AND MOVEMENT PERIPHERAL TO SITE INTACT; CAP REFILL <3 SEC; ALL REMAINED SUCH FOR REMAINDER OF SHIFT.
--- NOTE | 2018-12-19 05:36 | NUR ---
SHIFT SUMMARY ASSUMED CARE OF PT AT 1900 HRS, PT ALERT AND ORIENTED IN BED, C/O BACK PAIN. PT REQUESTED OTHER THAN NSAIDS FOR PAIN RELIEF, THEY CAUSE HER "BAD STOMACH UPSET." ORDER OBTAINED FOR PRN Q6 TRAMADOL; PT MEDICATED PER MD ORDER AND UNIT PROTOCOL, REPORTING RELIEF OF PAIN W/ NO ADVERSE REACTION AT REASSESSMENT. ENCOURAGED PT TO BEGIN SELF-STUDY OF CHOLESTEROL-REDUCING DIET; PT DISPLAYED INTEREST AND REPORTED SIGNIFICANT MOTIVATION. PATIENT IS INDEPENDENT OF ADL'S; REPOSITIONS, TRANSFERS AND AMBULATES SAFELY. AT APPROX 0320 PT C/O HEADACHE PAIN "BEHIND MY LEFT EYE." MEDICATED PER PROTOCOL W/ 50MG TRAMADOL, AND PT SLEEPING PEACEFULLY AT REASSESSMENT. WILL CONTINUE TO MONITOR, AND PASS REPORT AND CARE TO ONCOMING SHIFT. BED LOW & LOCKED, CALL LIGHT W/IN REACH.
--- NOTE | 2018-12-19 08:00 | NUR ---
INITIAL ASSESSMENT: Patient is awake sitting in her bed watching TV. Patient is alert and oriented. Patient reports pain in her lower back that she rates at a 7/10, pt described this pain as a dull ache. Patient also states her pain gets worse when laying completely flat. HRR, Sinus Bradycardia at 57 bpm. LS CTA, pt states she has a HX of lobectomy on most of her right lung, this was removed due to cancer. When asked about home oxygen, pt states she has been wearing 2L O2 via NC only at . Biox WNL on RA at this time. BT+. PPP. Patient has scattered bruising. She has two black eyes and bruising in the middle of her eyebrows. Patient states she slipped at home on some water that was on her floor and she landed on her trash can. Patient has a right radial site with arm board in place. Cath site looks good, minimal bruising with opsite covering the site. AM meds given at this time. Dr. Torres has been in the room and plans to discarge the patient.
--- NOTE | 2018-12-19 08:30 | NUR ---
Patient given tramadol for back pain. Patient deneis other needs at this time. call light in reach. Will continue to monitor.
[2018-12-19] MEDS ORDERED: METO50 PO (08:59)
[2018-12-19] MEDS ORDERED: Hydrochloroth12.5 MG PO (09:00)
[2018-12-19 09:01] LABS: Anion Gap 5 mmol/L (6-16); Blood Urea Nitrogen 15 mg/dL (8-24); Bun/Creatinine Ratio 29.9 (12.0-20.0); CO2, Blood 28 mmol/L (21-32); Calcium, Blood 9.2 mg/dL (8.5-10.1); Chloride, Blood 98 mmol/L (98-108); Glomerular Filtration Rate >60 (60-); Glucose, Blood 96 mg/dL (70-99); Potassium, Blood 3.5 mmol/L (3.5-5.5); Sodium, Blood 131 mmol/L (136-145)
[2018-12-19] MEDS ORDERED: XARELTO10 MG PO (09:01)
--- NOTE | 2018-12-19 09:45 | NUR ---
Discharge medications faxed to [facility]. Patients at bedside. Patient and verbalize understanding of discharge instructions and new medications. Patient to home ambulatory with .
[2018-12-20] MEDS ORDERED: Ventolin/Prove6.7 GM INH (15:05)
[2018-12-20] MEDS ORDERED: ALBU3IS INH (15:31)
[2018-12-20] MEDS ORDERED: Flonase 0.05% N16 GM (15:33)
[2018-12-20] MEDS ORDERED: ONDA4ODT SL (16:29)
[2018-12-20] MEDS ORDERED: TRIDERM454 GM TOP (16:31)
== END 2018-12-19 09:57 | disposition home or self-care (01) | DRG 247 ==
LOC: ER 16:39 → PCU 22:01 → ERHOLD 22:01 → PCU 12-18 04:05
PROVIDERS: Emergency Medicine; Internal Medicine; ADMIT Hospitalist
PROC: 4A023N7 Measurement of Cardiac Sampling and Pressure, Left Heart, Percutaneous Approach (ICD-10-PCS; principal; 2018-12-18)
PROC: 027034Z Dilation of Coronary Artery, One Artery with Drug-eluting Intraluminal Device, Percutaneous Approach (ICD-10-PCS; 2018-12-18)
PROC: B211YZZ Fluoroscopy of Multiple Coronary Arteries using Other Contrast (ICD-10-PCS; 2018-12-18)
DX: I48.2 Chronic atrial fibrillation (principal); I25.110 Atherosclerotic heart disease of native coronary artery with unstable angina pectoris; F32.9 Major depressive disorder, single episode, unspecified; L40.9 Psoriasis, unspecified; S05.10XA Contusion of eyeball and orbital tissues, unspecified eye, initial encounter; Z85.118 Personal history of other malignant neoplasm of bronchus and lung; I10 Essential (primary) hypertension; I25.2 Old myocardial infarction
CPT/HCPCS: 36415; 70450; 71046; 71260; 80048; 80053; 83690; 84443; 84484; 85025; 85347; 92978; 93005; 93010; 93306; 93454; 93458; 94640; 94760; 96361; 96372-59; 96374-59; 96375-59; 96376; 96376-59; 99152; 99153; 99285-25; C1725; C1753; C1769; C1874; C1887; C1894; C9600; G0378; J0360; J1200; J1644; J1650; J2250; J2270; J2405; J2930; J3010; J7030; J7040; Q9967

== ENCOUNTER 2018-12-20 12:49 | Inpatient (IN) | payer MEDICARE, OTHER ==
[~2018-12-20] VITALS: Ht 154.9 cm; Wt 61.2 kg
[~2018-12-20 12:49] MED LIST changes: +ATORVASTATIN CA40 MG PO; +Betamethasone D60 ML TP; +XARELTO10 MG PO
[2018-12-20 13:21] LABS: BASOPHILS ABSOLUTE AUTO 0.05 K/mm3 (0.00-0.23); BASOPHILS PERCENT AUTO 0 % (0-2); EOSINOPHILS ABSOLUTE AUTO 0.07 K/mm3 (0.00-0.68); EOSINOPHILS PERCENT AUTO 0 % (0-6); Hematocrit 36.1 % (33.0-51.0); Hemoglobin 11.8 g/dL (11.5-16.0); IMMATURE GRAN ABSOLUTE AUTO 0.11 K/mm3 (0.00-0.10); IMMATURE GRAN PERCENT AUTO 1 % (0-1); LYMPHOCYTES ABSOLUTE AUTO 1.87 K/mm3 (0.84-5.20); LYMPHOCYTES PERCENT AUTO 11 % (21-46); MONOCYTES ABSOLUTE AUTO 0.88 K/mm3 (0.16-1.47); MONOCYTES PERCENT AUTO 5 % (4-13); Mean Corpuscular HGB 31.6 pg (26.0-34.0); Mean Corpuscular HGB Conc 32.7 g/dL (31.5-36.5); Mean Platelet Volume 9.4 fL (9.1-12.4); NEUTROPHILS ABSOLUTE AUTO 14.06 K/mm3 (1.96-9.15); NEUTROPHILS PERCENT AUTO 83 % (41-73); Platelet Count 289 K/mm3 (150-400); RDW Coefficient Variation 12.5 % (11.7-14.2); Red Blood Cell Count 3.74 M/mm3 (3.80-5.20); White Blood Cell Count 17.04 K/mm3 (4.00-11.30)
[2018-12-20 13:23] LABS: Mean Corpuscular Volume 97 fL (80-100)
[2018-12-20 13:30] LABS: Alanine Aminotransfer (ALT/SGP 41 U/L (12-78); Albumin, Blood 3.5 g/dL (3.4-5.0); Albumin/Globulin Ratio 0.9 (0.8-1.8); Alk Phos 123 U/L (50-136); Anion Gap 10 mmol/L (6-16); Aspartate Aminotrans (AST/SGOT 27 U/L (12-37); Bilirubin, Total 0.2 mg/dL (0.1-1.0); Blood Urea Nitrogen 34 mg/dL (8-24); Bun/Creatinine Ratio 59.1 (12.0-20.0); CO2, Blood 22 mmol/L (21-32); Calcium, Blood 8.7 mg/dL (8.5-10.1); Chloride, Blood 104 mmol/L (98-108); Creatinine, Blood 0.58 mg/dL (0.40-1.00); Globulin, Blood 3.8 g/dL (2.2-4.0); Glomerular Filtration Rate >60 (60-); Glucose, Blood 137 mg/dL (70-99); Potassium, Blood 3.1 mmol/L (3.5-5.5); Sodium, Blood 136 mmol/L (136-145); Total Protein, Blood 7.3 g/dL (6.4-8.2)
[2018-12-20 13:35] LABS: International Normalized Ratio 1.03; Prothrombin Time Results 10.9 Sec (9.7-11.5)
[2018-12-20 14:04] LABS: Bilirubin, Urine Neg (Neg); Blood, Urine 4+ (Neg); Glucose Qualitative, Urine Neg (Neg); Ketones, Urine Neg (Neg); Leukocyte Esterase, Urine 2+ (Neg); Nitrite, Urine Neg (Neg); Protein, Urine 2+ (Neg); Specific Gravity, Urine 1.005 (1.003-1.022); Urobilinogen, Urine NORM (Normal)
[2018-12-20 14:21] LABS: Appearance, Urine Hazy (Clear); Color, Urine Yellow (P-Yellow)
[2018-12-20 14:23] LABS: Source, Urine Clean Catch
[2018-12-20 14:27] LABS: Bacteria Few /hpf; Hyaline Casts 0-2 /lpf (0-2); Squamous Epithelial Cells Few /hpf (Few)
[2018-12-20] MEDS ORDERED: Ventolin/Prove6.7 GM INH (15:05)
[2018-12-20] MEDS ORDERED: ALBU3IS INH (15:31)
[2018-12-20] MEDS ORDERED: Flonase 0.05% N16 GM (15:33)
[2018-12-20] MEDS ORDERED: ONDA4ODT SL (16:29)
[2018-12-20] MEDS ORDERED: TRIDERM454 GM TOP (16:31)
[2018-12-20 16:33] LABS: Hematocrit 35.9 % (33.0-51.0); Hemoglobin 11.8 g/dL (11.5-16.0)
--- NOTE | 2018-12-20 17:30 | NUR ---
INITIAL ASSESSMENT PATIENT ARRIVED TO UNIT AROUND 1715 FROM ER. PATIENT ALERT AND ORIENTED X 4, AFEBRILE. PATIENT COMPLAINS OF 6/10 ACUTE ABDOMINAL PAIN. PATIENT 1 PERSON ASSIST AND IS AMBULATING WELL. PATIENT IS SATTING 90% OR GREATER ON RA. LUNGS CLEAR IN UPPER LOBES WITH CRACKLES NOTED IN LOWER LOBES. PATIENT IN SR, HR 70S TO 80S. BP STABLE. SCDS PLACED. ABDOMEN MODERATELY DISTENDED, TENDER, SOFT, WITH HYPERACTIVE BS. PATIENT REPORTS THAT SHE HAD MULTIPLE BLACK, LOOSE STOOLS THIS AM. WNL. SKIN IS FRAGILE. PATIENT HAS SOME SCATTERED PSORIASIS. BRUISES SCATTERED THROUGHOUT BODY. PATIENT STATES SHE FELL AT HOME ABOUT 2 WEEKS AGO WHEN SHE SLIPPED ON HER PET'S SPILLED WATER FROM BOWL. NS INFUSING AT 150 MLS/ HOUR. PATIENT HUNGRY AND THIRSTY BUT INFORMED THAT SHE IS NPO AT THIS TIME. DR. CANDELARIA INFORMED OF CONSULT AND STATED HE WOULD BE IN TO SEE HER TODAY. PATIENT IS RECEIVING KCL FOR POTASSIUM OF 3.1. PATIENT ORIENTED TO UNIT, ROOM AND CALL SYSTEM. BED LOW, CALL LIGHT IN REACH. WILL CONTINUE TO MONITOR PATIENT FREQUENTLY THROUGHOUT SHIFT.
--- NOTE | 2018-12-20 19:16 | NUR ---
SHIFT SUMMARY PATIENT GIVEN PRN FENTANYL TO HELP WITH ABDOMINAL PAIN. PATIENT REPORTED THAT PAIN MEDICATION "HELPED A LOT". VITAL SIGNS HAVE REMAINED STABLE. NO ACUTE CHANGES TO NOTE ON. PATIENT HAS NO COMPLAINTS AT THIS TIME. REPORT HAS BEEN GIVEN TO ASSUMING REPAIRER SWITCHGEAR NURSE.
--- NOTE | 2018-12-20 21:00 | NUR ---
CARE ASSUMED REPORT RECEIVED, CARE ASSUMED AT 1900. VITALS STABLE. SEE FLOWSHEET. SEE SHIFT ASSESSMENT. PAIN BEING MANAGED WITH FENTANYL. DR. CANDELARIA IN TO ROUND ON PT THIS EVENING. PER PATIENT, DR. CANDELARIA IS PLANNING TO SCOPE PATIENT ON MONDAY AND AGREES TO ALLOW PT TO HAVE A CLEAR LIQUID DIET. AWAITING MD ORDERS.
[2018-12-20 22:18] LABS: Hematocrit 34.3 % (33.0-51.0); Hemoglobin 11.1 g/dL (11.5-16.0)
[2018-12-21 04:01] LABS: Hematocrit 36.4 % (33.0-51.0); Hemoglobin 11.7 g/dL (11.5-16.0); Mean Corpuscular HGB 31.2 pg (26.0-34.0); Mean Corpuscular HGB Conc 32.1 g/dL (31.5-36.5); Mean Corpuscular Volume 97 fL (80-100); Mean Platelet Volume 9.3 fL (9.1-12.4); Platelet Count 260 K/mm3 (150-400); RDW Coefficient Variation 12.7 % (11.7-14.2); RDW Standard Deviation 45.2 fL (35.1-46.3); Red Blood Cell Count 3.75 M/mm3 (3.80-5.20); White Blood Cell Count 10.52 K/mm3 (4.00-11.30)
[2018-12-21 04:19] LABS: Anion Gap 6 mmol/L (6-16); Blood Urea Nitrogen 21 mg/dL (8-24); Bun/Creatinine Ratio 36.4 (12.0-20.0); CO2, Blood 24 mmol/L (21-32); Calcium, Blood 8.5 mg/dL (8.5-10.1); Chloride, Blood 107 mmol/L (98-108); Creatinine, Blood 0.58 mg/dL (0.40-1.00); Glomerular Filtration Rate >60 (60-); Glucose, Blood 88 mg/dL (70-99); Potassium, Blood 3.7 mmol/L (3.5-5.5); Sodium, Blood 137 mmol/L (136-145)
--- NOTE | 2018-12-21 06:01 | NUR ---
SUMMARY VITALS STABLE THROUGHOUT SHIFT. PT HAS HAD INCREASED ABDOMINAL PAIN/DISCOMFORT BUT IS MANAGING WITH FENTANYL. BOWEL SOUNDS REMAIN HYPERACTIVE. PT HAS BEEN UP AND DOWN TO BATHROOM WITH STAND BY ASSIST FOR URINATION AND GAS, BUT NO FURTHER BOWEL MOVEMENTS. H&H STABLE. PT HAS CALLED APPROPRIATELY FOR NEEDS.
--- NOTE | 2018-12-21 07:38 | NUR ---
ASSUMED CARE: PT RESTING QUIETLY AT THIS TIME. NO NEEDS OR CONCERNS NOTED
[2018-12-21 10:21] LABS: Hematocrit 31.7 % (33.0-51.0); Hemoglobin 10.2 g/dL (11.5-16.0)
--- NOTE | 2018-12-21 13:56 | NUR ---
CALL TO DR MATOS TO SEE IF WE SHOULD START TRANSITIONING TO ORAL PAIN MEDS DUE TO FENTANYL BEING GIVEN EVERY [address] OJEDA'D FENTANYL AND STARTED LIDOCAINE PATCH. STATES IF PAIN CONTINUES TO CALL FOR A CT SCAN
--- NOTE | 2018-12-21 16:16 | NUR ---
CALL TO DR MATOS SINCE PT STATED SHE IS STILL HAVING ABDOMINAL PAIN 10/10 IN THE AREA BETWEEN HER STOMACH AND COLON. DR STATES HE WILL REVIEW CHART AND POSSIBLY ORDER CT SCAN. DR ALSO AWARE THAT PT HAS BEEN HAVING MAROON COLORED STOOL SEVERAL TIMES TODAY.
--- NOTE | 2018-12-21 17:23 | NUR ---
SHIFT SUMMARY: PT RESTING QUIETLY AT THIS TIME. JUST RETURNED BACK FROM IMAGING FOR ABDOMINAL CT DUE TO FREQUENT ABDOMINAL PAIN. LIDOCAINE PATCH TO UPPER BACK FOR BACK PAIN. PLAN FOR SCOPE TOMORROW PER DR CANDELARIA. MAROON STOOLS NOTED. NO FURTHER NEEDS OR CONCERNS AT THIS TIME.
--- NOTE | 2018-12-21 18:44 | NUR ---
CALL TO DR MATOS ABOUT NEED FOR FURTHER IV FLUIDS. ALSO MADE HIM AWARE OF PT'S CONTINUED ABDOMINAL PAIN AND CT SCAN RESULTS. STATES HE WILL PUT IN ORDERS.
--- NOTE | 2018-12-21 19:40 | NUR ---
CARE ASSUMED / DR. CANDELARIA COMMUNICATION REPORT RECEIVED, CARE ASSUMED AT 1900. ON NURSE ROUNDING PT REPORTS 7/10 ABDOMINAL PAIN. SPOKE WITH DR. CANDELARIA TO CONFIRM PLAN OF CARE. DR. CANDELARIA AGREED TO GIVE GI COCKTAIL AND REASSESS PAIN AND FOLLOW UP WITH HOSPITALIST. PLAN FOR SCOPE IN THE MORNING.
--- NOTE | 2018-12-21 21:23 | NUR ---
DR. MOCK COMMUNICATION SPOKE WITH DR. MOCK REGARDING PT'S PAIN AND ELEVATED BP. NEW ORDER FOR FENTANYL.
[2018-12-22 02:33] LABS: Source, Urine Clean Catch
--- NOTE | 2018-12-22 02:35 | NUR ---
URINATION PT HAS BEEN UP AND DOWN TO BNATHROOM APPROX EVERY 30-60 MINUTES THROUGHOUT NIGHT. STATES, "I KEEP FEELING LIKE I'M GOING TO WET THE BED." DISCUSSED PREVIOUS URINALYSIS RESULTS WITH DR. ESPINOZA. NEW ORDER FOR REPEAT URINALYSIS.
[2018-12-22 02:37] LABS: Appearance, Urine Clear (Clear); Bilirubin, Urine Neg (Neg); Blood, Urine Neg (Neg); Color, Urine Yellow (P-Yellow); Glucose Qualitative, Urine Neg (Neg); Ketones, Urine Neg (Neg); Leukocyte Esterase, Urine 1+ (Neg); Nitrite, Urine Neg (Neg); Protein, Urine Neg (Neg); Specific Gravity, Urine 1.005 (1.003-1.022); Urobilinogen, Urine NORM (Normal)
[2018-12-22 02:43] LABS: Bacteria Mod /hpf; Red Blood Cells, Urine 0-2 /hpf (0-2); Squamous Epithelial Cells Rare /hpf (Few); White Blood Cells, Urine 0-2 /hpf (0-5)
[2018-12-22 04:22] LABS: Hematocrit 32.2 % (33.0-51.0); Hemoglobin 10.4 g/dL (11.5-16.0); Mean Corpuscular HGB 30.8 pg (26.0-34.0); Mean Corpuscular HGB Conc 32.3 g/dL (31.5-36.5); Mean Corpuscular Volume 95 fL (80-100); Mean Platelet Volume 9.3 fL (9.1-12.4); Platelet Count 231 K/mm3 (150-400); RDW Coefficient Variation 12.4 % (11.7-14.2); RDW Standard Deviation 43.1 fL (35.1-46.3); Red Blood Cell Count 3.38 M/mm3 (3.80-5.20); White Blood Cell Count 10.33 K/mm3 (4.00-11.30)
--- NOTE | 2018-12-22 06:20 | NUR ---
SUMMARY PT HAS CONTINUED TO BE UP AND DOWN FROM BATHROOM FREQUENTLY. WILL DISCUSS URINALYSIS WITH DAY SHIFT RN FOR HOSPITALIST ROUNDS. BP HAS CONTINUED TO BE INTERMITTENTLY ELEVATED, BUT IMPROVES WHEN PT IS RESTING AND COMFORTABLE. OTHERWISE, VITALS STABLE. PAIN MANAGED WITH FENTANYL. NPO SINCE 0600 AND WATER ONLY FROM [id number]. PT HAS HAD NO MORE EPISODES OF MAROON STOOL. PT HAS CALLED APPRIATELY FOR NEEDS.
--- NOTE | 2018-12-22 07:10 | NUR ---
AFIB AT CHANGE OF SHIFT, PT NOTED TO CONVERT INTO AFIB RATE IN 100'S. UP TO 160 WITH EXERTION. BP ELEVATED. HYDRALAZINE AND FENTANYL GIVEN. BP IMPROVED. HR CONTINUES TO BE AFIB. REPORT TO JONO JEROME TO ASSUME CARE.
--- NOTE | 2018-12-22 07:56 | NUR ---
ASSUMED CARE / DR NAVAS: REPORT RECEIVED FROM ORVILLE Bah RN. ASSUMED CARE OF THIS PT AT APPROX 0700. ON ASSESSMENT, THE PT IS A&O, PLEASANT & COOPERATIVE. PER REPORT, PT CONVERTED FROM NSR TO AFIB W/ RVR AT APPROX 0610 THIS AM, HR 100-160s. PT ASYMPTOMATIC OF THIS. WILL GIVE AM DOSE OF METOPROLOL EARLY & NOTIFY PROVIDER NEEDED. PROVIDER AT BEDSIDE TO SEE PT. ORDERS PLACED FOR 10MG CARDIZEM IVP R/T INCREASED HR & AFIB. IF NO RESULTS, THIS DOSE MAY BE REPEATED 20 MINUTES AFTER INITIAL DOSE. WILL CONTINUE TO MONITOR & UPDATE NEEDED.
--- NOTE | 2018-12-22 08:05 | NUR ---
RHYTHM CONVERSION: PT HAS CONVERTED BACK FROM AFIB TO NSR AT 0805 PRIOR TO THIS RN ADMINISTERING CARDIZEM PER DR NAVAS's ORDERS. WILL CONTINUE TO MONITOR & UPDATE NEEDED.
--- NOTE | 2018-12-22 09:50 | NUR ---
DAY SURGERY: PT TAKEN TO DAY SURGERY FOR EGD AT APPROX 0935.
--- NOTE | 2018-12-22 09:53 | NUR ---
12/22/18 0953 Chris Guerrero History, Chart, Medications and Allergies reviewed before start of procedure.MONITOR INTACT WITH CONTINUOUS PULSE OXIMETRY AND INTERMITTENT BP.3-LEAD EKG REVIEWED WITH PHYSICIAN PRIOR TO START OF PROCEDURE.O2 VIA N/C INTACT THROUGHOUT SEDATION/PROCEDURE. Patient confirms NPO status and agrees with scheduled surgery.See Anesthesia record.
--- NOTE | 2018-12-22 10:40 | NUR ---
MESIS FROM PROCEDURE / DR CANDELARIA: PT RETURNED TO ROOM ICU-15 FROM DAY SURGERY AT APPROX 1015. ON ARRIVAL SHE IS A&O, ABLE TO AMBULATE FROM GURNEY TO BED W/ SBA. PT STS STOMACH PAIN IS SLIGHTLY WORSE AFTER PROCEDURE & SHE IS EXPERIENCING SOME NAUSEA ALSO, MEDS PER EMAR. VSS, WILL CONTINUE TO MONITOR. PROVIDER AT BEDSIDE TO SEE PT. HE HAS GIVEN HER COPIES OF THE PHOTOS TAKEN DURING PROCEDURE & STS THAT SHE HAD MULTIPLE SMALL GASTRIC ULCERS THAT ARE NOT CURRENTLY BLEEDING. IT WILL BE AT THE DESCRETION OF THE HOSPITALIST, DR NAVAS, ON WHETHER OR NOT XARELTO IS RESUMED. DIET ORDER PLACED & PT NOW MED W/ TELE STATUS.
--- NOTE | 2018-12-22 10:45 | NUR ---
DR NAVAS: CALL TO PROVIDER TO NOTIFY HIM OF EGD FINDINGS. HE STS HE WOULD LIKE TO WAIT TO RESTART XARELTO AT THIS TIME. ALSO NOTIFIED HIM THAT CARDIZEM IVP WAS NOT GIVEN & THAT PT CONVERTED FROM AFIB TO SR W/O CARDIZEM IVP. WILL CONTINUE TO MONITOR & UPDATE NEEDED.
--- NOTE | 2018-12-22 14:55 | NUR ---
TRANSFER TO MED FLOOR: REPORT HAS BEEN GIVEN TO CLAUDETTE Mg RN TO ASSUME CARE ON MED FLOOR. CHART, INHALERS & ALL BELONGINGS HAVE BEEN TRANSFERRED UP W/ PT. PT TAKEN VIA WC BY VANE HAM, TO ROOM 338.
--- NOTE | 2018-12-22 15:39 | NUR ---
ARRIVES ABOUT 1500 VIA W/C. STS WANTS SHOWER, SO TO SHOWER W/IV'S WRAPPED. PAIN MEDS AFTER FOR ABD PAIN. PAIN DOWN TO 4 (1-10) FEW MINUTES AFTER FENTANYL. BRUISES T/O. HEALING BRUISES TO BILATERAL EYES AND FOREHEAD. LUNGS CLEAR. SPEAKS IN COMPLETE SENTENCES. UNLABORED RESPIRATIONS. HAT IN BATHROOM TO WATCH FOR ANY BLEEDING W/PATIENT AWARE. LR INFUSING. TELE ON AND PER TECH SR AT 69. PSORIATIC ARTHRITIS. ORIENTED TO ROOM. WCTM.
[2018-12-23 05:38] LABS: Hematocrit 30.2 % (33.0-51.0); Hemoglobin 10.1 g/dL (11.5-16.0); Mean Corpuscular HGB 31.7 pg (26.0-34.0); Mean Corpuscular HGB Conc 33.4 g/dL (31.5-36.5); Mean Corpuscular Volume 95 fL (80-100); Mean Platelet Volume 9.1 fL (9.1-12.4); Platelet Count 226 K/mm3 (150-400); RDW Coefficient Variation 12.4 % (11.7-14.2); RDW Standard Deviation 43.1 fL (35.1-46.3); Red Blood Cell Count 3.19 M/mm3 (3.80-5.20); White Blood Cell Count 8.04 K/mm3 (4.00-11.30)
[2018-12-23 05:58] LABS: Anion Gap 5 mmol/L (6-16); Blood Urea Nitrogen 10 mg/dL (8-24); Bun/Creatinine Ratio 17.6 (12.0-20.0); CO2, Blood 31 mmol/L (21-32); Calcium, Blood 8.9 mg/dL (8.5-10.1); Chloride, Blood 98 mmol/L (98-108); Creatinine, Blood 0.57 mg/dL (0.40-1.00); Glomerular Filtration Rate >60 (60-); Glucose, Blood 114 mg/dL (70-99); Potassium, Blood 3.6 mmol/L (3.5-5.5); Sodium, Blood 134 mmol/L (136-145)
[2018-12-23] MEDS ORDERED: LIDO700A20 TOP (11:37)
[2018-12-23] MEDS ORDERED: PANT20 PO (11:37)
--- NOTE | 2018-12-23 12:45 | NUR ---
REVIEW D'C. REVIEW NEW MEDS AND HOW/WHEN TO TAKE. SENT TO [facility].GIVEN RX FOR LAB DRAW. AWARE TO CALL PCP TOMORROW AND SET UP APPT. AWARE TO RETURN TO E.R. IF ANY BLOODY STOOLS. ANSWER ALL QUESTIONS. IN W/C TO POV W/S.O.
== END 2018-12-23 12:53 | disposition home or self-care (01) | DRG 378 ==
LOC: ER 12:49 → PCU 12:50 → ICUW 17:24 → MEDS 12-21 15:01 → ICUW 12-22 10:47 → MEDS 12-22 14:58
PROVIDERS: Emergency Medicine; Internal Medicine; Internal Medicine Gastroenterology; ADMIT Internal Medicine
PROC: 0DJ08ZZ Inspection of Upper Intestinal Tract, Via Natural or Artificial Opening Endoscopic (ICD-10-PCS; principal; 2018-12-22 08:00)
DX: K25.4 Chronic or unspecified gastric ulcer with hemorrhage (principal); D68.32 Hemorrhagic disorder due to extrinsic circulating anticoagulants; I48.0 Paroxysmal atrial fibrillation; Z79.01 Long term (current) use of anticoagulants; J44.9 Chronic obstructive pulmonary disease, unspecified; I25.10 Atherosclerotic heart disease of native coronary artery without angina pectoris; E87.6 Hypokalemia; D72.829 Elevated white blood cell count, unspecified; K44.9 Diaphragmatic hernia without obstruction or gangrene; I10 Essential (primary) hypertension; E03.9 Hypothyroidism, unspecified; F32.9 Major depressive disorder, single episode, unspecified; L40.50 Arthropathic psoriasis, unspecified; Z79.82 Long term (current) use of aspirin; Z99.81 Dependence on supplemental oxygen; Z87.891 Personal history of nicotine dependence
CPT/HCPCS: 36415; 74176; 80048; 80053; 81001; 82272; 85014; 85018; 85025; 85027; 85610; 85730; 86850; 86900; 86901; 87077; 87086; 87186; 93005; 93010; 94640; 94760; 96361; 96365; 96366; 96375; 96376; 99285-25; C1751; C9113; G0378; J0360; J2405; J2550; J2704; J3010; J3480; J7030; J7120

== ENCOUNTER 2019-04-24 11:17 | Observation (INO) | payer MEDICARE, OTHER ==
[~2019-04-24] VITALS: Ht 157.5 cm; Wt 63.9 kg
[~2019-04-24 11:17] MED LIST changes: +ALBU3IS INH; +Flonase 0.05% N16 GM; +LIDO700A20 TOP; +ONDA4ODT SL; +PANT20 PO; +TRIDERM454 GM TOP; +Ventolin/Prove6.7 GM INH
[2019-04-24 12:13] LABS: BASOPHILS ABSOLUTE AUTO 0.05 K/mm3 (0.00-0.23); BASOPHILS PERCENT AUTO 1 % (0-2); EOSINOPHILS PERCENT AUTO 1 % (0-6); Hematocrit 39.2 % (33.0-51.0); Hemoglobin 12.9 g/dL (11.5-16.0); IMMATURE GRAN ABSOLUTE AUTO 0.02 K/mm3 (0.00-0.10); IMMATURE GRAN PERCENT AUTO 0 % (0-1); LYMPHOCYTES ABSOLUTE AUTO 0.94 K/mm3 (0.84-5.20); LYMPHOCYTES PERCENT AUTO 10 % (21-46); MONOCYTES ABSOLUTE AUTO 0.66 K/mm3 (0.16-1.47); MONOCYTES PERCENT AUTO 7 % (4-13); Mean Corpuscular HGB 29.4 pg (26.0-34.0); Mean Corpuscular HGB Conc 32.9 g/dL (31.5-36.5); Mean Corpuscular Volume 89 fL (80-100); Mean Platelet Volume 9.4 fL (9.1-12.4); NEUTROPHILS ABSOLUTE AUTO 8.15 K/mm3 (1.96-9.15); NEUTROPHILS PERCENT AUTO 82 % (41-73); Platelet Count 219 K/mm3 (150-400); RDW Coefficient Variation 13.8 % (11.7-14.2); RDW Standard Deviation 45.1 fL (35.1-46.3); Red Blood Cell Count 4.39 M/mm3 (3.80-5.20); White Blood Cell Count 9.92 K/mm3 (4.00-11.30)
[2019-04-24 12:28] LABS: International Normalized Ratio 1.03
[2019-04-24 12:35] LABS: Troponin I <0.015 ng/mL (0.000-0.040)
[2019-04-24 12:36] LABS: Alanine Aminotransfer (ALT/SGP 31 U/L (12-78); Alk Phos 127 U/L (50-136); Anion Gap 8 mmol/L (6-16); Aspartate Aminotrans (AST/SGOT 29 U/L (12-37); Bilirubin, Total 0.6 mg/dL (0.1-1.0); Blood Urea Nitrogen 16 mg/dL (8-24); Bun/Creatinine Ratio 26.8 (12.0-20.0); CO2, Blood 25 mmol/L (21-32); Calcium, Blood 9.2 mg/dL (8.5-10.1); Chloride, Blood 99 mmol/L (98-108); Glomerular Filtration Rate >60 (60-); Glucose, Blood 99 mg/dL (70-99); Potassium, Blood 3.8 mmol/L (3.5-5.5); Sodium, Blood 132 mmol/L (136-145)
[2019-04-24] MEDS ORDERED: Avapro300 MG PO (15:50)
[2019-04-24] MEDS ORDERED: Isosorbide Mono30 MG PO (15:53)
[2019-04-24] MEDS ORDERED: STELARA45 MG/0.1 (15:57)
--- NOTE | 2019-04-24 18:20 | NUR ---
SHIFT SUMMARY PATIENT IS IN HER ROOM. CONTINUES TO HAVE CHEST PAIN WITH DEEP BREATHE AND BACK PAIN. ABLE TO MAKE HER NEEDS KNOWN.
[2019-04-25 00:25] LABS: BASOPHILS ABSOLUTE AUTO 0.05 K/mm3 (0.00-0.23); BASOPHILS PERCENT AUTO 1 % (0-2); EOSINOPHILS ABSOLUTE AUTO 0.14 K/mm3 (0.00-0.68); EOSINOPHILS PERCENT AUTO 2 % (0-6); Hematocrit 33.7 % (33.0-51.0); Hemoglobin 11.1 g/dL (11.5-16.0); IMMATURE GRAN ABSOLUTE AUTO 0.01 K/mm3 (0.00-0.10); IMMATURE GRAN PERCENT AUTO 0 % (0-1); LYMPHOCYTES ABSOLUTE AUTO 1.17 K/mm3 (0.84-5.20); LYMPHOCYTES PERCENT AUTO 18 % (21-46); MONOCYTES PERCENT AUTO 9 % (4-13); Mean Corpuscular HGB 29.4 pg (26.0-34.0); Mean Corpuscular HGB Conc 32.9 g/dL (31.5-36.5); Mean Corpuscular Volume 89 fL (80-100); Mean Platelet Volume 9.2 fL (9.1-12.4); NEUTROPHILS ABSOLUTE AUTO 4.42 K/mm3 (1.96-9.15); NEUTROPHILS PERCENT AUTO 69 % (41-73); Platelet Count 176 K/mm3 (150-400); RDW Standard Deviation 45.2 fL (35.1-46.3); Red Blood Cell Count 3.78 M/mm3 (3.80-5.20); White Blood Cell Count 6.39 K/mm3 (4.00-11.30)
[2019-04-25 00:40] LABS: Anion Gap 8 mmol/L (6-16); Blood Urea Nitrogen 15 mg/dL (8-24); Bun/Creatinine Ratio 26.5 (12.0-20.0); CO2, Blood 25 mmol/L (21-32); Calcium, Blood 8.5 mg/dL (8.5-10.1); Chloride, Blood 98 mmol/L (98-108); Creatinine, Blood 0.57 mg/dL (0.40-1.00); Glomerular Filtration Rate >60 (60-); Glucose, Blood 107 mg/dL (70-99); International Normalized Ratio 1.02; Potassium, Blood 3.3 mmol/L (3.5-5.5); Prothrombin Time Results 10.9 Sec (9.7-11.5); Sodium, Blood 131 mmol/L (136-145)
--- NOTE | 2019-04-25 08:20 | NUR ---
PT with hx of cardiac cath 12/2018 with 1 stent admitted yesterday due to 1 week of chest pain who was sent by DR Lui cardiology for possible cardiac cath . NPO since midnight with NS running at 75 ml hr. Voids multiple times. PT has hx of lung cancer with rt subtotal lobectomy and has some pain related to the 2017 surgery. Degen disk disease hx of multiple cervical surgery to spine. Lt shouder arthritis with steroid injection scheduled today out pt. Medicated PT x 2 with 1 norco 5/325 mfg tab with good pain relief. Denies chest pain this shift.
--- NOTE | 2019-04-25 14:45 | NUR ---
TRANSFER TO [facility] PATIENT TRANSFERD TO [facility] FOR ANGIOGRAM. REPORT CALLED TO PCU NURSE RECEIVING PATIENT AFTER PROCEDURE.
--- NOTE | 2019-04-25 16:15 | NUR ---
ASSUMED PATIENT CARE.
--- NOTE | 2019-04-25 17:48 | NUR ---
CALL TO DR CHAHAL DUE TO PT'S HYPERTENSION. ORDERS TO GIVE TONIGHT'S DOSE OF METOPROLOL NOW. INSTRUCTED TO CALL BACK IN AN HOUR IF NOT IMPROVED.
--- NOTE | 2019-04-25 19:20 | NUR ---
PATIENT ARRIVED FROM BANKING SERVICES CLERK WITH R.WRIST INCISION AND TR BAND APPLIED WITH 13 ML PRESSURE. PATIENT PAIN WELL MANAGED BY NORND, AGREEABLE TO POST-PROCEDURAL VITALS AND ASSESSMENT. WHEN ML PRESSURE REMOVED FROM TR BAND AT 1850, INCISION STARTED TO BLEED AND 2 ML REAPPLIED. BLEEDING STOPPED AND NO NEW DRAINAGE NOTED.
--- NOTE | 2019-04-25 19:27 | NUR ---
RELINQUISHED PATIENT CARE.
--- NOTE | 2019-04-25 19:55 | NUR ---
ASSUMED CARE PATIENT SITTING IN BED ALERT AND ORIENTED IN BED, NO SIGN OF DISTRESS. VERIFIED ACCESS SITE AND TR BAND W/ OUTGOING SHIFT. TR BAND IN PLACE COVERING R RADIAL ACCESS SITE, MAX BLOOD AT EDGES OF TR BAND. THE FIRST 2 ML OF AIR REMOVED FROM THE BAND HAD RESULTED IN BLEEDING FROM ACCESS SITE, SO THE AIR HAD JUST BEEN RETURNED TO TR BAND REPORT WAS GIVEN , WHICH STEMMED THE FLOW. NO NEW BLEEDING AFTERWARDS. SMALL HEMATOMA PROXIMAL EDGE OF BAND, PT SAYS WAS THERE SINCE THE PROCEDURE. VSS. PERFUSION, SATURATION, SENSATION, ALL WNL PER ASSESSMENT AND PATIENT REPORT. WILL CONTINUE TO MONITOR, CALL LIGHT IN REACH, ARM BOARD IN PLACE
--- NOTE | 2019-04-25 23:15 | NUR ---
TR BAND FULLY DEFLATED. ALL VSS. NO NEW BLEEDING, SWELLING, HEMATOMA, OR PAIN. ARM BOARD IN PLACE. WILL CONTINUE TO MONITOR
--- NOTE | 2019-04-26 01:20 | NUR ---
TR BAND REMOVED WITHOUT ISSUE. SKIN IMMEDIATELY PERIPHERAL TO SITE CLEANED WITH ALCOHOL, SITE COVERED WITH CLEAR TEGADERM DRESSING. SITE REMAINS INTACT, NO NEW BLEEDING, SWELLING, HEMATOMA, OR PAIN. ARM BOARD IN PLACE, PATIENT KNOWS TO KEEP BOARD IN PLACE FOR AT LEAST 24 HOURS. CALL LIGHT IN REACH.
--- NOTE | 2019-04-26 04:45 | NUR ---
BLOOD PRESSURE AT 0400 VITALS CHECK WAS ELEVATED ABOVE NORMAL LIMITS. ONE-TIME DOSE OF HYDRALAZINE OBTAINED AND ADMINISTERED, WHICH LOWERED BP SIGNIFICANTLY BY 30-MINUTE VITALS ASSESSMENT. SEE VITALS REVIEW. WILL CONTINUE TO MONITOR. CALL LIGHT IN REACH
--- NOTE | 2019-04-26 05:55 | NUR ---
PATIENT IN PAIN PATIENT COMPLAINS OF 9/10 PAIN TO CHEST, RADIATING AROUND TO BACK, AND DOWN SHOULDER TO ARM. EKG PERFORMED, NO SIGNIFICANT CHANGES FROM PATIENT'S BASELINE TO EKG REPORT, TELE MONITOR, OR VITAL SIGNS. PATIENT'S APPEARANCE SHOWS SIGNIFICANT DISTRESS WHICH WAS NOT PRESENT DURING THE REST ST OF SHIFT. PATIENT'S MAIN COMPLAINT IS "CAN'T BREATHE, CAN'T TALK" BECAUSE OF CHEST NOT ABLE TO MOVE. PT SAYS IS DIFFERENT FROM ANXIETY, AND DIFFICULTY BREATHING IS NOT SPECIFICALLY FROM PAIN. 02 SATURATION ABOVE 95% T/O. OBTAINED ORDER FOR FENTANYL WHICH WAS ADMINISTERED PER EMAR. PT REPORTS LITTLE RESULT OF MED BY CHANGE OF SHIFT.
--- NOTE | 2019-04-26 07:10 | NUR ---
SHIFT SUMMARY CARE AND REPORT PASSED TO ONCOMING SHIFT. PATIENT ALERT SITTING IN BED, PREVIOUS PAIN MOSTLY UNRESOLVED. UNIT CHARGE NURSE IS AWARE AND INVOLVED WELL. RIGHT RADIAL ACCESS SITE REMAINS INTACT AND WNL. PATIENT HAS CALL LIGHT IN REACH, ARM BOARD IS IN PLACE.
--- NOTE | 2019-04-26 08:04 | NUR ---
BLOOD PRESSURE ELEVATED ABOVE NORMAL LIMITS. ONE-TIME DOSE OF HYDRALAZINE OBTAINED AND ADMINISTERED, WHICH LOWERED BP SIGNIFICANTLY BY 30-MINUTE VITALS ASSESSMENT. SEE VITALS REVIEW. WILL CONTINUE TO MONITOR. CALL LIGHT IN REACH
[2019-04-26] MEDS ORDERED: AMLO10 PO (11:21)
[2019-04-26] MEDS ORDERED: Norco 5-325 Ta1 EACH PO (11:23)
[2019-04-26] MEDS ORDERED: ACET325 PO (11:24)
[2019-04-26] MEDS ORDERED: HYDCHL25 PO (14:13)
--- NOTE | 2019-04-26 15:06 | NUR ---
DISCHARGE PAPERWORK AND INSTRUCTIONS FOR MEDICATIONS GONE OVER WITH PT BY SPEECH LANGUAGE PATHOLOGY ASSISTANT SHARONA. BELONGINGS WERE GATHERED AND WITH PT.
== END 2019-04-26 14:57 | disposition home or self-care (01) ==
LOC: ER 11:17 → MEDS 11:18 → PCU 04-25 15:55 → MEDS 04-25 16:03 → PCU 04-25 16:05
PROVIDERS: Emergency Medicine; Nurse Practitioner Acute Care; ADMIT Family Medicine
PROC: 4A023N7 Measurement of Cardiac Sampling and Pressure, Left Heart, Percutaneous Approach (ICD-10-PCS; principal; 2019-04-25)
PROC: B201YZZ Plain Radiography of Multiple Coronary Arteries using Other Contrast (ICD-10-PCS; principal; 2019-04-25)
DX: R07.89 Other chest pain (principal); I25.110 Atherosclerotic heart disease of native coronary artery with unstable angina pectoris; I10 Essential (primary) hypertension; F32.9 Major depressive disorder, single episode, unspecified; E03.9 Hypothyroidism, unspecified; K92.1 Melena; I48.20 Chronic atrial fibrillation, unspecified; J44.9 Chronic obstructive pulmonary disease, unspecified; F41.9 Anxiety disorder, unspecified; Z95.5 Presence of coronary angioplasty implant and graft; Z87.891 Personal history of nicotine dependence; Z85.118 Personal history of other malignant neoplasm of bronchus and lung; Z90.2 Acquired absence of lung [part of]; Z79.01 Long term (current) use of anticoagulants; Z88.5 Allergy status to narcotic agent; Z88.6 Allergy status to analgesic agent; Z88.0 Allergy status to penicillin; Z88.8 Allergy status to other drugs, medicaments and biological substances; Z91.041 Radiographic dye allergy status; Z79.899 Other long term (current) drug therapy; Z79.82 Long term (current) use of aspirin; Z79.02 Long term (current) use of antithrombotics/antiplatelets; K21.9 Gastro-esophageal reflux disease without esophagitis
CPT/HCPCS: 36415; 71046; 80048; 80053; 83735; 83880; 84484; 85025; 85610; 85730; 93005; 93010; 93454; 94640; 94760; 96374; 96376; 99152; 99153; 99285-25; A9270; A9270-GY; C1769; C1887; C1894; G0378; J0360; J1200; J1644; J1720; J2250; J2405; J2930; J3010; J3475; J3490; J7030; J7040; Q9967

== ENCOUNTER 2019-08-06 15:06 | Emergency (ER) | payer MEDICARE, OTHER ==
[~2019-08-06] VITALS: Ht 154.9 cm; Wt 65.8 kg
[~2019-08-06 15:06] MED LIST changes: +ACET325 PO; +AMLO10 PO; +Avapro300 MG PO; +HYDCHL25 PO; +Isosorbide Mono30 MG PO; +Norco 5-325 Ta1 EACH PO; +STELARA45 MG/0.1
[2019-08-06 15:34] LABS: BASOPHILS ABSOLUTE AUTO 0.06 K/mm3 (0.00-0.23); BASOPHILS PERCENT AUTO 1 % (0-2); EOSINOPHILS ABSOLUTE AUTO 0.06 K/mm3 (0.00-0.68); EOSINOPHILS PERCENT AUTO 1 % (0-6); Hematocrit 38.4 % (33.0-51.0); Hemoglobin 13.2 g/dL (11.5-16.0); IMMATURE GRAN ABSOLUTE AUTO 0.04 K/mm3 (0.00-0.10); IMMATURE GRAN PERCENT AUTO 0 % (0-1); LYMPHOCYTES ABSOLUTE AUTO 1.13 K/mm3 (0.84-5.20); LYMPHOCYTES PERCENT AUTO 12 % (21-46); MONOCYTES ABSOLUTE AUTO 0.81 K/mm3 (0.16-1.47); MONOCYTES PERCENT AUTO 8 % (4-13); Mean Corpuscular HGB Conc 34.4 g/dL (31.5-36.5); Mean Corpuscular Volume 93 fL (80-100); NEUTROPHILS ABSOLUTE AUTO 7.71 K/mm3 (1.96-9.15); NEUTROPHILS PERCENT AUTO 79 % (41-73); Platelet Count 303 K/mm3 (150-400); RDW Coefficient Variation 13.2 % (11.7-14.2); RDW Standard Deviation 45.2 fL (35.1-46.3); Red Blood Cell Count 4.13 M/mm3 (3.80-5.20); White Blood Cell Count 9.81 K/mm3 (4.00-11.30)
[2019-08-06 15:48] LABS: International Normalized Ratio 0.98; Prothrombin Time Results 10.5 Sec (9.7-11.5)
[2019-08-06] MEDS ORDERED: Zithromax250 MG PO (16:22)
[2019-08-06] MEDS ORDERED: ATOR20 PO (16:34)
== END 2019-08-06 16:40 | disposition home or self-care (01) ==
LOC: ER 15:06
PROVIDERS: Physician Assistant
DX: R04.0 Epistaxis (principal); H65.92 Unspecified nonsuppurative otitis media, left ear; I10 Essential (primary) hypertension; E03.9 Hypothyroidism, unspecified; J44.9 Chronic obstructive pulmonary disease, unspecified; I25.10 Atherosclerotic heart disease of native coronary artery without angina pectoris; F32.9 Major depressive disorder, single episode, unspecified; Z88.0 Allergy status to penicillin; Z88.6 Allergy status to analgesic agent; Z91.09 Other allergy status, other than to drugs and biological substances; Z88.5 Allergy status to narcotic agent; Z88.8 Allergy status to other drugs, medicaments and biological substances; Z91.048 Other nonmedicinal substance allergy status; Z79.899 Other long term (current) drug therapy; Z79.51 Long term (current) use of inhaled steroids; Z79.02 Long term (current) use of antithrombotics/antiplatelets; Z87.891 Personal history of nicotine dependence
CPT/HCPCS: 85025; 85610; 85730; 86850; 86900; 86901; 96374; 99284-25; J3010

== ENCOUNTER 2019-09-25 11:10 | Day surgery (SDC) | payer MEDICARE ==
[~2019-09-25] VITALS: Ht 154.9 cm; Wt 69.2 kg
[~2019-09-25 11:10] MED LIST changes: +ATOR20 PO; +AVAPRO300 MG PO; +IPRAT-ALBUT 0.5-3 ML INH; +USTEKINUMAB SC; +XARELTO20 MG PO; +Zithromax250 MG PO
--- NOTE | 2019-09-25 13:46 | NUR ---
09/25/19 1346 Alice Gee PLEDGETS SOAKED IN 30 MG EPI USED FOR NASAL PACKING.
--- NOTE | 2019-09-25 15:50 | NUR ---
09/25/19 1550 Vickie Willett RECIEVED REPORT FROM JONO JACKSON AFTER PT ATE SALTINES, PT VOMITTED APPROXIMATELY 30MLS DARK BROWN EMESIS. 4MG ZOFRAN GIVEN IVM PER MD. PT ALSO MEDICATED FOR PAIN WITH FENTANYL PER ORDERS AND 1 PO 5MG OXYCODONE
== END 2019-09-25 16:14 | disposition home or self-care (01) ==
LOC: ORSCSDS 11:10
PROVIDERS: Otolaryngology
PROC: 09TL0ZZ Resection of Nasal Turbinate, Open Approach (ICD-10-PCS; principal; 2019-09-25 12:45)
PROC: 09BM0ZZ Excision of Nasal Septum, Open Approach (ICD-10-PCS; principal; 2019-09-25 12:45)
DX: J34.2 Deviated nasal septum (principal); J34.3 Hypertrophy of nasal turbinates; I10 Essential (primary) hypertension; Z87.891 Personal history of nicotine dependence; Z79.01 Long term (current) use of anticoagulants; J44.9 Chronic obstructive pulmonary disease, unspecified; I25.10 Atherosclerotic heart disease of native coronary artery without angina pectoris; E03.9 Hypothyroidism, unspecified; Z79.899 Other long term (current) drug therapy
CPT/HCPCS: J0330; J0360; J1100; J2250; J2405; J3010; J7120

== ENCOUNTER 2020-02-25 19:07 | Emergency (ER) | payer MEDICARE ==
[~2020-02-25] VITALS: Ht 154.9 cm; Wt 65.8 kg
[2020-02-25 20:21] LABS: BASOPHILS ABSOLUTE AUTO 0.04 K/mm3 (0.00-0.23); BASOPHILS PERCENT AUTO 1 % (0-2); EOSINOPHILS ABSOLUTE AUTO 0.01 K/mm3 (0.00-0.68); EOSINOPHILS PERCENT AUTO 0 % (0-6); Hematocrit 34.7 % (33.0-51.0); Hemoglobin 11.1 g/dL (11.5-16.0); IMMATURE GRAN ABSOLUTE AUTO 0.02 K/mm3 (0.00-0.10); IMMATURE GRAN PERCENT AUTO 0 % (0-1); LYMPHOCYTES ABSOLUTE AUTO 0.78 K/mm3 (0.84-5.20); LYMPHOCYTES PERCENT AUTO 9 % (21-46); MONOCYTES ABSOLUTE AUTO 0.75 K/mm3 (0.16-1.47); MONOCYTES PERCENT AUTO 9 % (4-13); Mean Corpuscular HGB 27.4 pg (26.0-34.0); Mean Corpuscular Volume 86 fL (80-100); Mean Platelet Volume 8.8 fL (9.1-12.4); NEUTROPHILS ABSOLUTE AUTO 6.77 K/mm3 (1.96-9.15); NEUTROPHILS PERCENT AUTO 81 % (41-73); Platelet Count 322 K/mm3 (150-400); RDW Coefficient Variation 15.5 % (11.7-14.2); RDW Standard Deviation 48.6 fL (35.1-46.3); Red Blood Cell Count 4.05 M/mm3 (3.80-5.20); White Blood Cell Count 8.37 K/mm3 (4.00-11.30)
[2020-02-25 20:35] LABS: Alanine Aminotransfer (ALT/SGP 35 U/L (12-78); Albumin, Blood 3.5 g/dL (3.4-5.0); Albumin/Globulin Ratio 0.9 (0.8-1.8); Alk Phos 110 U/L (50-136); Anion Gap 8 mmol/L (6-16); Aspartate Aminotrans (AST/SGOT 37 U/L (12-37); Bilirubin, Total 0.4 mg/dL (0.1-1.0); Blood Urea Nitrogen 13 mg/dL (8-24); Bun/Creatinine Ratio 19.5 (12.0-20.0); CO2, Blood 29 mmol/L (21-32); Calcium, Blood 8.8 mg/dL (8.5-10.1); Chloride, Blood 98 mmol/L (98-108); Creatinine, Blood 0.67 mg/dL (0.40-1.00); Globulin, Blood 4.1 g/dL (2.2-4.0); Glomerular Filtration Rate >60 (60-); Glucose, Blood 132 mg/dL (70-99); Sodium, Blood 135 mmol/L (136-145); Total Protein, Blood 7.6 g/dL (6.4-8.2)
== END 2020-02-26 00:15 | disposition left against medical advice (07) ==
LOC: ER 19:07
PROVIDERS: Emergency Medicine
DX: R11.2 Nausea with vomiting, unspecified (principal); R53.1 Weakness; Z53.21 Procedure and treatment not carried out due to patient leaving prior to being seen by health care provider
CPT/HCPCS: 80053; 83690; 85025; 93005; 93010

== ENCOUNTER 2020-03-10 11:30 | Observation (INO) | payer MEDICARE ==
[~2020-03-10] VITALS: Ht 154.9 cm; Wt 65.1 kg
[2020-03-10 12:14] LABS: BASOPHILS ABSOLUTE AUTO 0.04 K/mm3 (0.00-0.23); BASOPHILS PERCENT AUTO 1 % (0-2); EOSINOPHILS ABSOLUTE AUTO 0.03 K/mm3 (0.00-0.68); EOSINOPHILS PERCENT AUTO 0 % (0-6); Hematocrit 33.7 % (33.0-51.0); Hemoglobin 10.7 g/dL (11.5-16.0); IMMATURE GRAN ABSOLUTE AUTO 0.04 K/mm3 (0.00-0.10); IMMATURE GRAN PERCENT AUTO 1 % (0-1); LYMPHOCYTES ABSOLUTE AUTO 0.81 K/mm3 (0.84-5.20); LYMPHOCYTES PERCENT AUTO 11 % (21-46); MONOCYTES ABSOLUTE AUTO 0.62 K/mm3 (0.16-1.47); MONOCYTES PERCENT AUTO 8 % (4-13); Mean Corpuscular HGB Conc 31.8 g/dL (31.5-36.5); Mean Corpuscular Volume 85 fL (80-100); Mean Platelet Volume 9.1 fL (9.1-12.4); NEUTROPHILS ABSOLUTE AUTO 6.12 K/mm3 (1.96-9.15); NEUTROPHILS PERCENT AUTO 80 % (41-73); Platelet Count 328 K/mm3 (150-400); RDW Coefficient Variation 15.2 % (11.7-14.2); RDW Standard Deviation 47.3 fL (35.1-46.3); Red Blood Cell Count 3.96 M/mm3 (3.80-5.20); White Blood Cell Count 7.66 K/mm3 (4.00-11.30)
[2020-03-10 12:29] LABS: Alanine Aminotransfer (ALT/SGP 57 U/L (12-78); Albumin/Globulin Ratio 0.9 (0.8-1.8); Alk Phos 122 U/L (50-136); Anion Gap 7 mmol/L (6-16); Aspartate Aminotrans (AST/SGOT 57 U/L (12-37); Bilirubin, Total 0.6 mg/dL (0.1-1.0); Blood Urea Nitrogen 19 mg/dL (8-24); Bun/Creatinine Ratio 24.3 (12.0-20.0); CO2, Blood 34 mmol/L (21-32); Chloride, Blood 89 mmol/L (98-108); Creatinine, Blood 0.78 mg/dL (0.40-1.00); Globulin, Blood 4.6 g/dL (2.2-4.0); Glomerular Filtration Rate >60 (60-); Glucose, Blood 127 mg/dL (70-99); Potassium, Blood 2.5 mmol/L (3.5-5.5); Sodium, Blood 130 mmol/L (136-145); Total Protein, Blood 8.6 g/dL (6.4-8.2)
[2020-03-10] MEDS ORDERED: TRAZ50 PO (15:17)
[2020-03-10] MEDS ORDERED: EFFEXOR XR150 MG PO (15:18)
[2020-03-10] MEDS ORDERED: SYMBICORT 16010.2 GM INH (15:18)
[2020-03-10] MEDS ORDERED: XARELTO20 M1 PO (15:18)
[2020-03-10] MEDS ORDERED: AVAPRO150 MG PO (15:19)
[2020-03-10 15:50] LABS: Hematocrit 29.4 % (33.0-51.0); Hemoglobin 9.1 g/dL (11.5-16.0)
[2020-03-10 15:52] LABS: Base Excess Venous 6.9 mmol/L; Bicarbonate Venous 30.1 mmol/L (24.0-30.0); PCO2 Venous 42.8 mmHg (38-42); pH Blood Venous 7.46 (7.34-7.37)
--- NOTE | 2020-03-10 19:20 | NUR ---
ASSUMED CARE RECEIVED REPORT FROM JONO DUEÑAS. ASSUMED CARE OF PT. RESTING COMFORTABLY, NO S/S ACUTE DISTRESS NOTED, RESPS E/U. DENIES NEEDS. CALL LIGHT, POSSESSIONS IN REACH, BED IN LOW POSITION WITH ALARMS ON. WCTM.
--- NOTE | 2020-03-10 19:23 | NUR ---
SHIFT SUMMARY PT IS AOX4. PT DENIES SOB, N/V. PT C/O PAIN THIS EVENING IN ABDOMEN. PT ADMITTED TO UNIT AT APPROXIMATELY 1650. PT IS ONE PERSON ASSIST IN ROOM WITH FULL LIQUID DIET. KCL CURRENTLY RUNNING IN LEFT AC IV WITH NS. PT IN WITH PT IN ER, BUT NOT ON UNIT. PT TELE RUNNING SINUS RHYTHM THIS DILIP. PT IS IN BED, CALL LIGHT IN REACH, BED IN LOW POSITION.
[2020-03-11 00:33] LABS: Hematocrit 26.8 % (33.0-51.0); Hemoglobin 8.4 g/dL (11.5-16.0)
[2020-03-11 05:23] LABS: Hematocrit 29.4 % (33.0-51.0); Mean Corpuscular HGB 26.6 pg (26.0-34.0); Mean Corpuscular HGB Conc 30.6 g/dL (31.5-36.5); Mean Corpuscular Volume 87 fL (80-100); Mean Platelet Volume 9.5 fL (9.1-12.4); Platelet Count 283 K/mm3 (150-400); RDW Coefficient Variation 15.6 % (11.7-14.2); RDW Standard Deviation 49.5 fL (35.1-46.3); Red Blood Cell Count 3.38 M/mm3 (3.80-5.20); White Blood Cell Count 8.68 K/mm3 (4.00-11.30)
[2020-03-11 05:28] LABS: Alanine Aminotransfer (ALT/SGP 43 U/L (12-78); Albumin, Blood 3.4 g/dL (3.4-5.0); Albumin/Globulin Ratio 0.9 (0.8-1.8); Alk Phos 99 U/L (50-136); Anion Gap 6 mmol/L (6-16); Aspartate Aminotrans (AST/SGOT 46 U/L (12-37); Bilirubin, Total 0.6 mg/dL (0.1-1.0); Blood Urea Nitrogen 12 mg/dL (8-24); Bun/Creatinine Ratio 17.7 (12.0-20.0); CO2, Blood 30 mmol/L (21-32); Calcium, Blood 8.4 mg/dL (8.5-10.1); Chloride, Blood 97 mmol/L (98-108); Creatinine, Blood 0.68 mg/dL (0.40-1.00); Globulin, Blood 3.6 g/dL (2.2-4.0); Glomerular Filtration Rate >60 (60-); Glucose, Blood 88 mg/dL (70-99); Magnesium, Blood 1.8 mg/dL (1.6-2.4); Potassium, Blood 3.2 mmol/L (3.5-5.5); Sodium, Blood 133 mmol/L (136-145)
--- NOTE | 2020-03-11 07:25 | NUR ---
SHIFT SUMMARY PT RESTING COMFORTABLY, NO S/S DISTRESS NOTED. WAS MONITORED EVERY 1-2 HOURS WITH NEEDS MET. VS REVIEWED, WNL. O2 SATS STABLE ON RA. PAIN AND NAUSEA MANAGED WITH MEDS PER EMAR, WITH EFFECTIVE RELIEF. NO FURTHER EPISODES OF DARK STOOLS. H&H STABLE. PT UP TO BATHROOM WITH MINIMAL ASSIST WITH FWW, TOLERATED WELL. DENIES NEEDS AT THIS TIME. CALL LIGHT, POSSESSIONS IN REACH, BED IN LOW POSITION WITH ALARMS ON. REPORT GIVEN TO JONO BALLESTEROS.
[2020-03-11 11:14] LABS: Hematocrit 27.3 % (33.0-51.0); Hemoglobin 8.4 g/dL (11.5-16.0)
[2020-03-11 16:50] LABS: Hematocrit 26.9 % (33.0-51.0); Hemoglobin 8.1 g/dL (11.5-16.0)
--- NOTE | 2020-03-11 17:53 | NUR ---
SHIFT SUMMARY UP TO BATHROOM WITH 1 PERSON ASSIST USING A FWW. TOLERATING IV FLUIDS AND K RIDERS WITH NO PROBLEM. REPORTS INCREASED PAIN AND NAUSEA ABOUT EVERY 4 HOURS. STATES SHE HAS BLOATING THAT BECOMES MORE UNCOMFORTABLE WELL. IN TO VISIT. DR. CANDELARIA TO COME SEE PT LATER TONIGHT.
--- NOTE | 2020-03-11 20:57 | NUR ---
64 Y/O FEMALE RESTING COMFORTABLY; PT DENIES NAUSEA; ABD TENDER TO TOUCH WITH TUMS GIVEN FOR COMFORT; PT ENCOURAGED TO DRINK FLUIDS SPARINGLY; ALERT AND ORIENTED X 4; DENIES NEED FOR PAIN MEDS.
[2020-03-11 23:09] LABS: Hematocrit 26.3 % (33.0-51.0); Hemoglobin 7.9 g/dL (11.5-16.0)
--- NOTE | 2020-03-12 04:05 | NUR ---
SHIFT SUMMARY: 64 Y/O FEMALE RESTED COMFORTABLY 1/2 SHIFT; PT C/O ABD TENDERNESS WITH FENTANYL 25MG IVP GIVEN TWICE WITH RELIEF VOICED; PT ALSO HAD TUMS 1000MG X 2 WITH RELIEF FELT; ALERT AND ORIENTED X 4; NO BOWEL MOVEMENTS NOTED; PT SCHEDULED FOR POSSIBLE UGI LATER TODAY VIA DR CANDELARIA; TELEMETRY REFLECTS NSR PER JULY--COMPRESSED GASES TESTER; BED LOW POSITION WITH CALL LIGHT AT SIDE.
[2020-03-12 05:13] LABS: BASOPHILS ABSOLUTE AUTO 0.05 K/mm3 (0.00-0.23); BASOPHILS PERCENT AUTO 1 % (0-2); EOSINOPHILS ABSOLUTE AUTO 0.21 K/mm3 (0.00-0.68); EOSINOPHILS PERCENT AUTO 3 % (0-6); Hematocrit 26.7 % (33.0-51.0); IMMATURE GRAN ABSOLUTE AUTO 0.02 K/mm3 (0.00-0.10); IMMATURE GRAN PERCENT AUTO 0 % (0-1); LYMPHOCYTES ABSOLUTE AUTO 1.57 K/mm3 (0.84-5.20); LYMPHOCYTES PERCENT AUTO 24 % (21-46); MONOCYTES ABSOLUTE AUTO 0.51 K/mm3 (0.16-1.47); MONOCYTES PERCENT AUTO 8 % (4-13); Mean Corpuscular HGB 26.4 pg (26.0-34.0); Mean Corpuscular Volume 88 fL (80-100); Mean Platelet Volume 9.3 fL (9.1-12.4); NEUTROPHILS ABSOLUTE AUTO 4.28 K/mm3 (1.96-9.15); NEUTROPHILS PERCENT AUTO 64 % (41-73); Platelet Count 255 K/mm3 (150-400); RDW Coefficient Variation 15.5 % (11.7-14.2); RDW Standard Deviation 49.4 fL (35.1-46.3); Red Blood Cell Count 3.03 M/mm3 (3.80-5.20); White Blood Cell Count 6.64 K/mm3 (4.00-11.30)
[2020-03-12 05:51] LABS: Albumin, Blood 3.3 g/dL (3.4-5.0); Anion Gap 7 mmol/L (6-16); Blood Urea Nitrogen 8 mg/dL (8-24); Bun/Creatinine Ratio 11.3 (12.0-20.0); CO2, Blood 25 mmol/L (21-32); Calcium, Blood 8.5 mg/dL (8.5-10.1); Chloride, Blood 102 mmol/L (98-108); Creatinine, Blood 0.71 mg/dL (0.40-1.00); Glomerular Filtration Rate >60 (60-); Glucose, Blood 102 mg/dL (70-99); Phosphorus, Blood 2.5 mg/dL (2.5-4.9); Potassium, Blood 3.8 mmol/L (3.5-5.5); Sodium, Blood 134 mmol/L (136-145)
[2020-03-12 11:12] LABS: Hematocrit 26.4 % (33.0-51.0); Hemoglobin 8.2 g/dL (11.5-16.0)
[2020-03-12 17:36] LABS: Influenza A, PCR Negative (NEGATIVE); Influenza B, PCR Negative (NEGATIVE); Resp Syncytial Virus, PCR Negative (NEGATIVE); SARS-Cov-2 (COVID-19) PCR, MMC Negative (NEGATIVE)
[2020-03-12 17:42] LABS: Hematocrit 26.9 % (33.0-51.0); Hemoglobin 8.3 g/dL (11.5-16.0)
--- NOTE | 2020-03-13 02:45 | NUR ---
03/12/201999 PT RESTING COMFORTABLY IN BED; CHEERFUL; DENIES PAIN OR NAUSEA. 03/13/20 0245 PT RESTING COMFORTABLY IN BED.
--- NOTE | 2020-03-13 04:15 | NUR ---
SHIFT SUMMARY: 64 Y/O FEMALE HAD RESTLESS NIGHT ALL SHIFT WITH ABD PAIN AND NAUSEA AT TIMES RATED 7/10; FENTANYL 25MG IVP X 2 AND ZOFRAN 4MG IVP X 2 GIVEN WITH RELIEF FELT; PT ABLE TO TAKE SIPS OF WATER; ABLE TO TRANSFER AND AMBULATE TO BATHROOM X 1 STANDBY ASSIST TO PUSH IV POLE WITH GAIT SLOW AND STEADY; ALERT AND ORIENTED X 4; VITAL SIGNS STABLE; BED LOW POSITION WITH CALL LIGHT AT SIDE.
[2020-03-13 06:26] LABS: Hematocrit 26.3 % (33.0-51.0); Hemoglobin 8.1 g/dL (11.5-16.0); Mean Corpuscular HGB 27.2 pg (26.0-34.0); Mean Corpuscular HGB Conc 30.8 g/dL (31.5-36.5); Mean Corpuscular Volume 88 fL (80-100); Mean Platelet Volume 9.4 fL (9.1-12.4); Platelet Count 258 K/mm3 (150-400); RDW Coefficient Variation 15.3 % (11.7-14.2); RDW Standard Deviation 49.3 fL (35.1-46.3); Red Blood Cell Count 2.98 M/mm3 (3.80-5.20); White Blood Cell Count 6.81 K/mm3 (4.00-11.30)
[2020-03-13 06:49] LABS: Percent Saturation 4.1 % (15.0-50.0)
[2020-03-13] MEDS ORDERED: TRAM50 PO (12:42)
--- NOTE | 2020-03-13 14:06 | NUR ---
PT DISCHARGED FROM THE UNIT. IV REMOVED. DISCHARGE INSTRUCTIONS REVIEWED. PT REQUESTED TO MAKE HER OWN FOLLOW UP APTS. PT LEFT UNIT AT 1400 WITH VIA WHEELCHAIR
== END 2020-03-13 14:02 | disposition home or self-care (01) ==
LOC: ER 11:30 → MEDS 11:31 → ENPENDDIS 03-13 11:06 → MEDS 03-13 14:02
PROVIDERS: Family Medicine; Internal Medicine; Internal Medicine Gastroenterology; Nurse Practitioner Acute Care; Physician Assistant; ADMIT Family Medicine
DX: K92.1 Melena (principal); D50.9 Iron deficiency anemia, unspecified; R10.9 Unspecified abdominal pain; E87.1 Hypo-osmolality and hyponatremia; I16.0 Hypertensive urgency; E87.6 Hypokalemia; E83.42 Hypomagnesemia; I10 Essential (primary) hypertension; E03.9 Hypothyroidism, unspecified; L40.50 Arthropathic psoriasis, unspecified; J44.9 Chronic obstructive pulmonary disease, unspecified; I25.10 Atherosclerotic heart disease of native coronary artery without angina pectoris; F32.9 Major depressive disorder, single episode, unspecified; I48.91 Unspecified atrial fibrillation; E78.5 Hyperlipidemia, unspecified; I25.2 Old myocardial infarction; M19.90 Unspecified osteoarthritis, unspecified site; K59.00 Constipation, unspecified; Z79.51 Long term (current) use of inhaled steroids; Z79.02 Long term (current) use of antithrombotics/antiplatelets; Z79.01 Long term (current) use of anticoagulants; Z79.899 Other long term (current) drug therapy; Z95.5 Presence of coronary angioplasty implant and graft; Z87.891 Personal history of nicotine dependence; Z88.0 Allergy status to penicillin; Z88.5 Allergy status to narcotic agent; Z88.6 Allergy status to analgesic agent; Z88.8 Allergy status to other drugs, medicaments and biological substances; Z91.041 Radiographic dye allergy status; Z91.048 Other nonmedicinal substance allergy status; Z86.018 Personal history of other benign neoplasm; Z20.828 Contact with and (suspected) exposure to other viral communicable diseases; Z23 Encounter for immunization
CPT/HCPCS: 0241U; 36415; 70450; 74176; 80053; 80069; 82728; 82803; 82947; 83540; 83550; 83605; 83735; 84484; 85014; 85018; 85025; 85027; 86850; 86900; 86901; 93005; 93010; 94640; 94664; 94760; 96365; 96366; 96368; 96375; 96376; 97165; 99285-25; A9270-GY; C9113; G0378; J1170; J2405; J2704; J2765; J3010; J3475; J3480; J7030; J7040; J7120

== ENCOUNTER 2020-05-23 10:49 | Emergency (ER) | payer MEDICARE, SELFPAY ==
[~2020-05-23] VITALS: Ht 152.4 cm; Wt 69.8 kg
[~2020-05-23 10:49] MED LIST changes: +AVAPRO150 MG PO; -Isosorbide Mono30 MG PO; -LEVSOD100 PO; -Ventolin/Prove6.7 GM INH; +XARELTO20 M1 PO
[2020-05-23] MEDS ORDERED: Norco 5-325 Ta1 EACH PO (11:19)
[2020-05-23] MEDS ORDERED: Valium5 MG PO (11:19)
[2020-05-23] MEDS ORDERED: METPRE4DP PO (11:19)
== END 2020-05-23 11:53 | disposition home or self-care (01) ==
LOC: ER 10:49
DX: M62.838 Other muscle spasm (principal); M54.2 Cervicalgia; I10 Essential (primary) hypertension; E03.9 Hypothyroidism, unspecified; J44.9 Chronic obstructive pulmonary disease, unspecified; I25.10 Atherosclerotic heart disease of native coronary artery without angina pectoris; Z79.899 Other long term (current) drug therapy; Z79.51 Long term (current) use of inhaled steroids; Z79.02 Long term (current) use of antithrombotics/antiplatelets; Z88.0 Allergy status to penicillin; Z88.6 Allergy status to analgesic agent; Z88.5 Allergy status to narcotic agent; Z88.8 Allergy status to other drugs, medicaments and biological substances; Z87.891 Personal history of nicotine dependence
CPT/HCPCS: 96374; 96375; 99283-25; A9270; J1100; J1170

== ENCOUNTER → 2020-06-12 | Outpatient (CLI) | payer MEDICARE, OTHER ==
[~2020-06-12] MED LIST changes: +AMLODIPINE BESYL5 MG PO; +BACLOFEN5 M5 PO; +DICLOFENAC SOD100 G1 TOP; +EFFEXOR XR150 MG PO; +EUTHYROX88 MCG PO; +ISOSORBIDE MONO60 MG PO; +MAGNESIUM OXID400 M1 PO; +METPRE4DP PO; +POTA10T PO; +SYMBICORT 16010.2 GM INH; +TIZANIDINE HCL2 M5 PO; +TRAZ50 PO; +Valium5 MG PO; +Ventolin/Prove6.7 GM INH
[2020-06-14 15:05] LABS: Stool Occult Bld Immuno 1 Negative (NEGATIVE); Stool Occult Bld Immuno 2 Negative (NEGATIVE)
== END | disposition home or self-care (01) ==
LOC: OLS 11:33 → LAB SHORT 11:33
PROVIDERS: Internal Medicine Gastroenterology
DX: D50.0 Iron deficiency anemia secondary to blood loss (chronic) (principal)
CPT/HCPCS: G0328

== ENCOUNTER 2020-06-18 16:48 | Inpatient (IN) | payer MEDICARE, SELFPAY ==
[~2020-06-18] VITALS: Ht 152.4 cm; Wt 65.8 kg
[~2020-06-18 16:48] MED LIST changes: -AMLODIPINE BESYL5 MG PO; -BACLOFEN5 M5 PO; -DICLOFENAC SOD100 G1 TOP; -EFFEXOR XR150 MG PO; -EUTHYROX88 MCG PO; -ISOSORBIDE MONO60 MG PO; -MAGNESIUM OXID400 M1 PO; -POTA10T PO; -SYMBICORT 16010.2 GM INH; -TIZANIDINE HCL2 M5 PO; -TRAZ50 PO; -Ventolin/Prove6.7 GM INH
[2020-06-18 17:27] LABS: BASOPHILS ABSOLUTE AUTO 0.04 K/mm3 (0.00-0.23); BASOPHILS PERCENT AUTO 1 % (0-2); EOSINOPHILS ABSOLUTE AUTO 0.07 K/mm3 (0.00-0.68); EOSINOPHILS PERCENT AUTO 1 % (0-6); Hematocrit 37.8 % (33.0-51.0); Hemoglobin 13.2 g/dL (11.5-16.0); IMMATURE GRAN ABSOLUTE AUTO 0.02 K/mm3 (0.00-0.10); IMMATURE GRAN PERCENT AUTO 0 % (0-1); LYMPHOCYTES ABSOLUTE AUTO 1.02 K/mm3 (0.84-5.20); LYMPHOCYTES PERCENT AUTO 17 % (21-46); MONOCYTES ABSOLUTE AUTO 0.69 K/mm3 (0.16-1.47); MONOCYTES PERCENT AUTO 12 % (4-13); Mean Corpuscular HGB 32.6 pg (26.0-34.0); Mean Corpuscular HGB Conc 34.9 g/dL (31.5-36.5); Mean Corpuscular Volume 93 fL (80-100); Mean Platelet Volume 9.1 fL (9.1-12.4); NEUTROPHILS ABSOLUTE AUTO 4.14 K/mm3 (1.96-9.15); NEUTROPHILS PERCENT AUTO 69 % (41-73); Platelet Count 273 K/mm3 (150-400); RDW Coefficient Variation 16.9 % (11.7-14.2); RDW Standard Deviation 55.9 fL (35.1-46.3); Red Blood Cell Count 4.05 M/mm3 (3.80-5.20); White Blood Cell Count 5.98 K/mm3 (4.00-11.30)
[2020-06-18 17:35] LABS: International Normalized Ratio 0.99; Prothrombin Time Results 10.6 Sec (9.7-11.5)
[2020-06-18 17:45] LABS: Alanine Aminotransfer (ALT/SGP 30 U/L (12-78); Albumin, Blood 3.6 g/dL (3.4-5.0); Albumin/Globulin Ratio 0.9 (0.8-1.8); Alk Phos 115 U/L (50-136); Anion Gap 11 mmol/L (6-16); Aspartate Aminotrans (AST/SGOT 28 U/L (12-37); Bilirubin, Total 0.3 mg/dL (0.1-1.0); Blood Urea Nitrogen 16 mg/dL (8-24); Bun/Creatinine Ratio 23.1 (12.0-20.0); CO2, Blood 30 mmol/L (21-32); Calcium, Blood 8.9 mg/dL (8.5-10.1); Chloride, Blood 91 mmol/L (98-108); Creatinine, Blood 0.69 mg/dL (0.40-1.00); Globulin, Blood 3.8 g/dL (2.2-4.0); Glomerular Filtration Rate >60 (60-); Glucose, Blood 89 mg/dL (70-99); Potassium, Blood 2.5 mmol/L (3.5-5.5); Sodium, Blood 132 mmol/L (136-145); Total Protein, Blood 7.4 g/dL (6.4-8.2); Troponin I <0.015 ng/mL (0.000-0.040)
[2020-06-18 20:15] LABS: Magnesium, Blood 1.3 mg/dL (1.6-2.4)
[2020-06-18 20:34] LABS: Source, Urine Clean Catch
[2020-06-18 20:46] LABS: Appearance, Urine Clear (Clear); Bilirubin, Urine Neg (Neg); Blood, Urine 1+ (Neg); Color, Urine Yellow (P-Yellow); Glucose Qualitative, Urine Neg (Neg); Ketones, Urine Neg (Neg); Leukocyte Esterase, Urine 1+ (Neg); Nitrite, Urine Neg (Neg); Protein, Urine Neg (Neg); Urobilinogen, Urine NORM (Normal); pH, Urine 6.5 (5.0-8.0)
[2020-06-18 20:50] LABS: Bacteria Few /hpf; Red Blood Cells, Urine 0-2 /hpf (0-2); Squamous Epithelial Cells Few /hpf (Few)
[2020-06-18] MEDS ORDERED: ONDA4ODT SL (21:47)
[2020-06-18] MEDS ORDERED: EFFEXOR XR150 MG PO (21:48)
[2020-06-18] MEDS ORDERED: TRAZ50 PO (21:48)
[2020-06-18] MEDS ORDERED: EUTHYROX88 MCG PO (21:49)
[2020-06-18] MEDS ORDERED: DICLOFENAC SOD100 G1 TOP (21:49)
[2020-06-18] MEDS ORDERED: AMLODIPINE BESYL5 MG PO (21:50)
[2020-06-18] MEDS ORDERED: ISOSORBIDE MONO60 MG PO (21:51)
[2020-06-18] MEDS ORDERED: Ventolin/Prove6.7 GM INH (21:52)
[2020-06-18] MEDS ORDERED: TIZANIDINE HCL2 M5 PO (22:05)
[2020-06-18] MEDS ORDERED: SYMBICORT 16010.2 GM INH (22:05)
[2020-06-19 05:00] LABS: BASOPHILS ABSOLUTE AUTO 0.02 K/mm3 (0.00-0.23); BASOPHILS PERCENT AUTO 0 % (0-2); EOSINOPHILS PERCENT AUTO 2 % (0-6); Hematocrit 34.9 % (33.0-51.0); Hemoglobin 12.1 g/dL (11.5-16.0); IMMATURE GRAN ABSOLUTE AUTO 0.01 K/mm3 (0.00-0.10); IMMATURE GRAN PERCENT AUTO 0 % (0-1); LYMPHOCYTES ABSOLUTE AUTO 0.93 K/mm3 (0.84-5.20); LYMPHOCYTES PERCENT AUTO 21 % (21-46); MONOCYTES ABSOLUTE AUTO 0.49 K/mm3 (0.16-1.47); MONOCYTES PERCENT AUTO 11 % (4-13); Mean Corpuscular HGB 32.4 pg (26.0-34.0); Mean Corpuscular HGB Conc 34.7 g/dL (31.5-36.5); Mean Corpuscular Volume 93 fL (80-100); Mean Platelet Volume 9.1 fL (9.1-12.4); NEUTROPHILS ABSOLUTE AUTO 2.95 K/mm3 (1.96-9.15); NEUTROPHILS PERCENT AUTO 66 % (41-73); Platelet Count 248 K/mm3 (150-400); RDW Coefficient Variation 16.7 % (11.7-14.2); RDW Standard Deviation 54.2 fL (35.1-46.3); Red Blood Cell Count 3.74 M/mm3 (3.80-5.20)
[2020-06-19 05:21] LABS: Anion Gap 7 mmol/L (6-16); Blood Urea Nitrogen 13 mg/dL (8-24); Bun/Creatinine Ratio 21.5 (12.0-20.0); CO2, Blood 30 mmol/L (21-32); Calcium, Blood 8.4 mg/dL (8.5-10.1); Chloride, Blood 98 mmol/L (98-108); Creatinine, Blood 0.61 mg/dL (0.40-1.00); Glomerular Filtration Rate >60 (60-); Glucose, Blood 109 mg/dL (70-99); Magnesium, Blood 1.9 mg/dL (1.6-2.4); Potassium, Blood 3.7 mmol/L (3.5-5.5); Sodium, Blood 135 mmol/L (136-145); Troponin I <0.015 ng/mL (0.000-0.040)
--- NOTE | 2020-06-19 16:37 | NUR ---
PT IS A/OX3, PLEASANT AND COOPERATIVE, THE PT IS UP WITH MINIMAL ASSIST TO THE BATHROOM, THE PT APPEARS TO BE BREATHING EASILY ON RA AT THIS TIME, THE PT REPORTED BACK PAIN T/O THE DAY, THE PT WAS MEDICATED FOR PAIN T/O THE DAY, AND NAUSEA, THE REPORTED THIS AFTERNOON THE SHE HAD SHOOTING PAIN/TINGLING DOWN BOTH ARMS, DR. DAVIS CAME AND ASSESSED THE PT AND TALKED WITH HER, CALL LIGHT IN REACH, PLAN FOR DC IN AM, WILL CONTINUE TO MONITOR AND ASSESS FOR CHANGES
--- NOTE | 2020-06-20 01:30 | NUR ---
PHYSICIAN COMMUNICATION CONTACTED SALES TEACHER PHYSICIAN, DR ESPINOZA, TO NOTIFY HIM THAT THE PATIENT WAS EXPERIENCING BACK PAIN OF 7/10 AND THAT HER TRAMADOL HAD NOT BEEN EFFECTIVE. DR ESPINOZA ORDERED 25-50 MCG FENTANYL IV Q4 HOURS PRN.
[2020-06-20 05:18] LABS: Albumin, Blood 3.4 g/dL (3.4-5.0); Anion Gap 6 mmol/L (6-16); Blood Urea Nitrogen 9 mg/dL (8-24); Bun/Creatinine Ratio 15.1 (12.0-20.0); CO2, Blood 29 mmol/L (21-32); Calcium, Blood 8.7 mg/dL (8.5-10.1); Chloride, Blood 101 mmol/L (98-108); Glomerular Filtration Rate >60 (60-); Glucose, Blood 118 mg/dL (70-99); Phosphorus, Blood 3.5 mg/dL (2.5-4.9); Potassium, Blood 3.4 mmol/L (3.5-5.5); Sodium, Blood 136 mmol/L (136-145)
--- NOTE | 2020-06-20 07:34 | NUR ---
SHIFT SUMMARY PATIENT ALERT AND ORIENTED. WAS MEDICATED PER EMAR FOR PAIN AND NAUSEA NEEDED. NO COMPLAINTS OF SHORTNESS OF BREATH. PATIENT DID NOT SLEEP MUCH LAST NIGHT DUE TO HER BACK PAIN. BED IN LOWEST POSITION WITH WHEELS LOCKED. CALL LIGHT WITHIN REACH. REPORT GIVEN TO ONCOMING RN.
[2020-06-20 13:36] LABS: Potassium, Blood 3.2 mmol/L (3.5-5.5)
[2020-06-20 13:43] LABS: Magnesium, Blood 1.1 mg/dL (1.6-2.4)
--- NOTE | 2020-06-20 19:28 | NUR ---
SHIFT SUMMARY: PATIENT A&O; CALM AND COOPERATIVE WITH CARE. MULTIPLE CALLS FROM HEALTH CARE SOCIAL WORKER; PT IN AND OUT OF A-FLUTTER; NOTIFIED; PT ASYMPTOMATIC; ELECTROLYTES ADJUSTED IV. CT OF HEAD THIS SHIFT; AWAITING RESULTS. MEDICATED FOR PAIN PER EMAR. REPORT GIVEN TO ONCOMING RN.
[2020-06-20 20:40] LABS: Potassium, Blood 4.1 mmol/L (3.5-5.5)
--- NOTE | 2020-06-21 07:08 | NUR ---
SHIFT SUMMARY PATIENT ALERT AND ORIENTED. WAS MEDICATED PER EMAR FOR PAIN AND NAUSEA NEEDED. DID NOT SLEEP MUCH OVERNIGHT. HAD NO COMPLAINTS OF SHORTNESS OF BREATH. IV PATENT AND FLUSHED. BED IN LOWEST POSITION WITH WHEELS LOCKED AND ALARM ON. CALL LIGHT WITHIN REACH. REPORT GIVEN TO ONCOMING RN.
[2020-06-21] MEDS ORDERED: ACET325 PO (13:24)
[2020-06-21] MEDS ORDERED: MAGNESIUM OXID400 M1 PO (13:25)
[2020-06-21] MEDS ORDERED: HYDR1TAB94 PO (13:25)
[2020-06-21] MEDS ORDERED: POTA10T PO (13:26)
--- NOTE | 2020-06-21 14:26 | NUR ---
PATIENT DISCHARGE: PATIENT DISCHARGED TO HOME THIS SHIFT. MEDICATION RECONCILIATION COMPLEED; MED LIST FAXED TO [facility] IN [place]; HARD SCRIPT PROVIDED TO PATIENT FOR CONTROLLED SUBSTANCE. DISCHARGE EDUCATION COMPLETED WITH PATIENT AND FAMILY. PATIENT TRANSPORTED TO EXIT BY [facility] STAFF WITH WHEELCHAIR AT 1422. PATIENT DEPARTD [facility] VIA PRIVATE AUTO.
== END 2020-06-21 14:22 | disposition home or self-care (01) | DRG 641 ==
LOC: ER 16:48 → MEDS 16:49
PROVIDERS: Family Medicine; Nurse Practitioner Acute Care; Physician Assistant; Student in an Organized Health Care Education/Training Program; ADMIT Internal Medicine
DX: E87.6 Hypokalemia (principal); I10 Essential (primary) hypertension; E03.9 Hypothyroidism, unspecified; J44.9 Chronic obstructive pulmonary disease, unspecified; I48.0 Paroxysmal atrial fibrillation; I25.10 Atherosclerotic heart disease of native coronary artery without angina pectoris; E83.42 Hypomagnesemia; F41.9 Anxiety disorder, unspecified; F32.9 Major depressive disorder, single episode, unspecified; R19.7 Diarrhea, unspecified; E66.9 Obesity, unspecified; M47.22 Other spondylosis with radiculopathy, cervical region; M48.02 Spinal stenosis, cervical region; D18.03 Hemangioma of intra-abdominal structures; R11.2 Nausea with vomiting, unspecified; E87.1 Hypo-osmolality and hyponatremia; L40.50 Arthropathic psoriasis, unspecified; Z91.041 Radiographic dye allergy status; Z88.5 Allergy status to narcotic agent; Z88.0 Allergy status to penicillin; Z88.6 Allergy status to analgesic agent; Z88.8 Allergy status to other drugs, medicaments and biological substances; Z91.048 Other nonmedicinal substance allergy status; Z85.118 Personal history of other malignant neoplasm of bronchus and lung; Z92.21 Personal history of antineoplastic chemotherapy; Z90.2 Acquired absence of lung [part of]; Z95.5 Presence of coronary angioplasty implant and graft; Z90.710 Acquired absence of both cervix and uterus; Z90.89 Acquired absence of other organs; Z98.890 Other specified postprocedural states; Z98.1 Arthrodesis status; Z87.891 Personal history of nicotine dependence; Z90.49 Acquired absence of other specified parts of digestive tract; Z90.721 Acquired absence of ovaries, unilateral; Z79.899 Other long term (current) drug therapy; Z79.02 Long term (current) use of antithrombotics/antiplatelets; I25.2 Old myocardial infarction; Z68.28 Body mass index [BMI] 28.0-28.9, adult; Z79.52 Long term (current) use of systemic steroids
CPT/HCPCS: 36415; 72141; 74176; 80048; 80053; 80069; 81001; 83735; 84132; 84484; 85025; 85610; 93005; 93010; 94640; 94760; 96365; 96366; 96367; 96375; 96376; 99285-25; A9270; G0378; J1170; J2060; J2405; J2550; J3010; J3475; J3480; J7030; J7050

== ENCOUNTER 2020-09-27 16:24 | Observation (INO) | payer MEDICARE ==
[~2020-09-27] VITALS: Ht 152.4 cm; Wt 65.7 kg
[~2020-09-27 16:24] MED LIST changes: +AMLODIPINE BESYL5 MG PO; +DICLOFENAC SOD100 G1 TOP; +EFFEXOR XR150 MG PO; +EUTHYROX88 MCG PO; +ISOSORBIDE MONO60 MG PO; +MAGNESIUM OXID400 M1 PO; +POTA10T PO; +SYMBICORT 16010.2 GM INH; +TIZANIDINE HCL2 M5 PO; +TRAZ50 PO; +Ventolin/Prove6.7 GM INH
[2020-09-27 16:53] LABS: BASOPHILS ABSOLUTE AUTO 0.08 K/mm3 (0.00-0.23); BASOPHILS PERCENT AUTO 1 % (0-2); EOSINOPHILS ABSOLUTE AUTO 0.04 K/mm3 (0.00-0.68); EOSINOPHILS PERCENT AUTO 0 % (0-6); Hemoglobin 17.9 g/dL (11.5-16.0); IMMATURE GRAN ABSOLUTE AUTO 0.06 K/mm3 (0.00-0.10); IMMATURE GRAN PERCENT AUTO 0 % (0-1); LYMPHOCYTES ABSOLUTE AUTO 0.83 K/mm3 (0.84-5.20); LYMPHOCYTES PERCENT AUTO 5 % (21-46); MONOCYTES PERCENT AUTO 6 % (4-13); Mean Corpuscular HGB Conc 35.1 g/dL (31.5-36.5); Mean Corpuscular Volume 91 fL (80-100); Mean Platelet Volume 9.6 fL (9.1-12.4); NEUTROPHILS ABSOLUTE AUTO 13.39 K/mm3 (1.96-9.15); NEUTROPHILS PERCENT AUTO 88 % (41-73); Platelet Count 356 K/mm3 (150-400); RDW Coefficient Variation 12.3 % (11.7-14.2)
[2020-09-27 17:17] LABS: Alanine Aminotransfer (ALT/SGP 88 U/L (12-78); Albumin, Blood 4.2 g/dL (3.4-5.0); Albumin/Globulin Ratio 0.9 (0.8-1.8); Alk Phos 159 U/L (50-136); Anion Gap 13 mmol/L (6-16); Aspartate Aminotrans (AST/SGOT 115 U/L (12-37); Bilirubin, Total 0.7 mg/dL (0.1-1.0); Blood Urea Nitrogen 13 mg/dL (8-24); Bun/Creatinine Ratio 17.9 (12.0-20.0); CO2, Blood 27 mmol/L (21-32); Calcium, Blood 10.2 mg/dL (8.5-10.1); Chloride, Blood 94 mmol/L (98-108); Creatinine, Blood 0.73 mg/dL (0.40-1.00); Globulin, Blood 4.9 g/dL (2.2-4.0); Glomerular Filtration Rate >60 (60-); Glucose, Blood 186 mg/dL (70-99); Potassium, Blood 2.8 mmol/L (3.5-5.5); Sodium, Blood 134 mmol/L (136-145); Total Protein, Blood 9.1 g/dL (6.4-8.2); Troponin I <0.015 ng/mL (0.000-0.040)
[2020-09-27] MEDS ORDERED: TRAM50 PO (19:09)
[2020-09-27] MEDS ORDERED: BACLOFEN5 M5 PO (19:09)
--- NOTE | 2020-09-27 23:10 | NUR ---
PATIENT IS A NEW ADMIT FROM THE ED. AXOX 4 AND ONE ASSIST TRAMSFER FROM BED TO GURNEY. ON ROOM AIR. IV POTASSIUM, IV MAGNESIUM, AND NORMAL SALINE INFUSING WITH TWO PIVS. DENIES CHEST PAIN, SOB, AND N/V. REPORTED BACK/NECK PAIN. PATIENT ORIENTED TO ROOM AND CALL LIGHT SYSTEM. ON ROOM AIR. PATIENT UP TO BATHROOM WITH ONE ASSIST. REPORTS WANTS TO WATCH TV AT THIS TIME. CALL LIGHT IN REACH.
--- NOTE | 2020-09-27 23:18 | NUR ---
TELEMETRY PLACED AND PCU CHARGE REPORTS NSR @ 75. NORCO GIVEN FOR BACK/NECK PAIN. NS INFUSING AT 75mL/HR X ONE BAG. RESTING WATCHING TV. CALL LIGHT IN REACH.
--- NOTE | 2020-09-28 03:03 | NUR ---
SHIFT SUMMARY PATIENT HAD NO ACUTE CHANGES OBSERVED. AXOX 4 AND ONE ASSIST TO BATHROOM. DENIES CHEST PAIN, SOB, AND N/V. REPORTED NECK/BACK PAIN X ONE AND NORCO GIVEN PER EMAR. PIVS REMAIN INTACT. NS INFUSING AT 75mL/HR. PCU CHARGE REPORTS NSR @ 75 FOR TELEMETRY CHECK. VSS/AFEBRILE. ON ROOM AIR. ON BED ALARM WITH ASSIST WITH LINES AND LEADS. CALL LIGHT IN REACH. BED IN LOWEST POSITION. WILL CONTINUE TO MONITOR UNTIL DAY SHIFT NURSE ASSUMES CARE.
[2020-09-28 05:21] LABS: BASOPHILS ABSOLUTE AUTO 0.03 K/mm3 (0.00-0.23); BASOPHILS PERCENT AUTO 0 % (0-2); EOSINOPHILS ABSOLUTE AUTO 0.05 K/mm3 (0.00-0.68); EOSINOPHILS PERCENT AUTO 1 % (0-6); Hematocrit 39.1 % (33.0-51.0); Hemoglobin 13.3 g/dL (11.5-16.0); IMMATURE GRAN ABSOLUTE AUTO 0.02 K/mm3 (0.00-0.10); IMMATURE GRAN PERCENT AUTO 0 % (0-1); LYMPHOCYTES PERCENT AUTO 16 % (21-46); MONOCYTES ABSOLUTE AUTO 0.61 K/mm3 (0.16-1.47); MONOCYTES PERCENT AUTO 8 % (4-13); Mean Corpuscular HGB 32.1 pg (26.0-34.0); Mean Corpuscular Volume 94 fL (80-100); Mean Platelet Volume 9.4 fL (9.1-12.4); NEUTROPHILS ABSOLUTE AUTO 5.79 K/mm3 (1.96-9.15); NEUTROPHILS PERCENT AUTO 75 % (41-73); Platelet Count 210 K/mm3 (150-400); RDW Coefficient Variation 12.4 % (11.7-14.2); RDW Standard Deviation 43.1 fL (35.1-46.3); Red Blood Cell Count 4.14 M/mm3 (3.80-5.20)
[2020-09-28 05:41] LABS: CPK Creatine Kinase 209 U/L (26-193); Troponin I <0.015 ng/mL (0.000-0.040)
[2020-09-28 05:54] LABS: Creatine Kinase MB Index 2.4 (0.0-4.0)
[2020-09-28 06:20] LABS: Alanine Aminotransfer (ALT/SGP 58 U/L (12-78); Albumin, Blood 3.2 g/dL (3.4-5.0); Alk Phos 107 U/L (50-136); Anion Gap 10 mmol/L (6-16); Aspartate Aminotrans (AST/SGOT 45 U/L (12-37); Bilirubin, Total 0.5 mg/dL (0.1-1.0); Blood Urea Nitrogen 11 mg/dL (8-24); Bun/Creatinine Ratio 18.1 (12.0-20.0); CO2, Blood 26 mmol/L (21-32); Chloride, Blood 99 mmol/L (98-108); Creatinine, Blood 0.61 mg/dL (0.40-1.00); Glomerular Filtration Rate >60 (60-); Glucose, Blood 110 mg/dL (70-99); Potassium, Blood 2.8 mmol/L (3.5-5.5); Sodium, Blood 135 mmol/L (136-145)
[2020-09-28 06:21] LABS: Albumin/Globulin Ratio 0.9 (0.8-1.8); Globulin, Blood 3.5 g/dL (2.2-4.0)
[2020-09-28 06:22] LABS: Calcium, Blood 7.9 mg/dL (8.5-10.1); Total Protein, Blood 6.7 g/dL (6.4-8.2)
--- NOTE | 2020-09-28 07:26 | NUR ---
ASSUMED CARE: PT RESTING IN BED, TALKING TO STAFF. DENIES CHEST PAIN. TELE STATES NSR WITH RATE OF 65. NO ACUTE NEEDS OR CONCERNS AT THIS TIME. AWAITING ELECTROLYTE RIDERS FROM PHARMACY
--- NOTE | 2020-09-28 16:33 | NUR ---
DR MOYA CALLED AND STATED THAT SHE WANTED BMP DONE NOW. MADE HER AWARE THAT TOTAL OF 80MEQ HAS NOT INFUSED YET. DR INSTRUCTED TO DRAW ANYWAY. LAB AWARE
[2020-09-28 16:39] LABS: Anion Gap 5 mmol/L (6-16); Blood Urea Nitrogen 9 mg/dL (8-24); Bun/Creatinine Ratio 14.6 (12.0-20.0); CO2, Blood 28 mmol/L (21-32); Calcium, Blood 7.9 mg/dL (8.5-10.1); Chloride, Blood 98 mmol/L (98-108); Creatinine, Blood 0.62 mg/dL (0.40-1.00); Glomerular Filtration Rate >60 (60-); Glucose, Blood 82 mg/dL (70-99); Potassium, Blood 4.3 mmol/L (3.5-5.5); Sodium, Blood 131 mmol/L (136-145)
--- NOTE | 2020-09-28 18:22 | NUR ---
PT GIVEN DC INSTRUCTIONS REGARDING FOLLOW UP APPOINTMENTS AND LABS. IVS DC'D WNL. ESCORTED OUT VIA WHEEL CHAIR BY HOSPITAL STAFF. DENIES OTHER NEEDS OR CONCERNS.
== END 2020-09-28 17:58 | disposition home or self-care (01) ==
LOC: ER 16:24 → MEDS 16:25
PROVIDERS: Family Medicine; Student in an Organized Health Care Education/Training Program; ADMIT Internal Medicine
DX: R07.89 Other chest pain (principal); R06.02 Shortness of breath; I47.1 Supraventricular tachycardia; E87.6 Hypokalemia; E83.42 Hypomagnesemia; E86.0 Dehydration; R61 Generalized hyperhidrosis; I10 Essential (primary) hypertension; E03.9 Hypothyroidism, unspecified; J44.9 Chronic obstructive pulmonary disease, unspecified; I25.10 Atherosclerotic heart disease of native coronary artery without angina pectoris; I48.91 Unspecified atrial fibrillation; I25.2 Old myocardial infarction; Z88.5 Allergy status to narcotic agent; Z88.0 Allergy status to penicillin; Z88.8 Allergy status to other drugs, medicaments and biological substances; Z88.6 Allergy status to analgesic agent; Z91.041 Radiographic dye allergy status; Z85.118 Personal history of other malignant neoplasm of bronchus and lung; Z90.2 Acquired absence of lung [part of]; Z92.21 Personal history of antineoplastic chemotherapy; Z95.5 Presence of coronary angioplasty implant and graft; Z87.891 Personal history of nicotine dependence
CPT/HCPCS: 36415; 71045; 71250; 78580; 80048; 80053; 82550; 82553; 83605; 83735; 84484; 85025; 85379; 87040; 93005; 93010; 94640; 94760; 96365; 96366; 96367; 96368; 96372; 96376; 99285-25; A9270; A9540; G0378; J1650; J1956; J2405; J3475; J3480; J7030; J7050

== ENCOUNTER 2021-02-13 11:37 | Emergency (ER) | payer MEDICARE ==
[~2021-02-13] VITALS: Ht 154.9 cm; Wt 68.0 kg
[~2021-02-13 11:37] MED LIST changes: +BACLOFEN5 M5 PO
[2021-02-13 12:07] LABS: BASOPHILS ABSOLUTE AUTO 0.05 K/mm3 (0.00-0.23); BASOPHILS PERCENT AUTO 1 % (0-2); EOSINOPHILS ABSOLUTE AUTO 0.01 K/mm3 (0.00-0.68); EOSINOPHILS PERCENT AUTO 0 % (0-6); Hematocrit 46.2 % (33.0-51.0); Hemoglobin 16.2 g/dL (11.5-16.0); IMMATURE GRAN ABSOLUTE AUTO 0.04 K/mm3 (0.00-0.10); IMMATURE GRAN PERCENT AUTO 0 % (0-1); LYMPHOCYTES ABSOLUTE AUTO 0.78 K/mm3 (0.84-5.20); LYMPHOCYTES PERCENT AUTO 7 % (21-46); MONOCYTES ABSOLUTE AUTO 0.81 K/mm3 (0.16-1.47); MONOCYTES PERCENT AUTO 7 % (4-13); Mean Corpuscular HGB 32.3 pg (26.0-34.0); Mean Corpuscular HGB Conc 35.1 g/dL (31.5-36.5); Mean Corpuscular Volume 92 fL (80-100); NEUTROPHILS ABSOLUTE AUTO 9.21 K/mm3 (1.96-9.15); NEUTROPHILS PERCENT AUTO 84 % (41-73); Platelet Count 347 K/mm3 (150-400); RDW Coefficient Variation 12.6 % (11.7-14.2); RDW Standard Deviation 42.5 fL (35.1-46.3); Red Blood Cell Count 5.01 M/mm3 (3.80-5.20)
[2021-02-13] MEDS ORDERED: XARELTO20 M1 PO (12:16)
[2021-02-13 12:32] LABS: Alanine Aminotransfer (ALT/SGP 36 U/L (12-78); Albumin, Blood 3.4 g/dL (3.4-5.0); Albumin/Globulin Ratio 0.8 (0.8-1.8); Alk Phos 114 U/L (50-136); Anion Gap 12 mmol/L (6-16); Aspartate Aminotrans (AST/SGOT 38 U/L (12-37); Bilirubin, Direct 0.1 mg/dL (0.0-0.3); Bilirubin, Indirect 0.5 mg/dL (0.1-0.7); Bilirubin, Total 0.6 mg/dL (0.1-1.0); Blood Urea Nitrogen 21 mg/dL (8-24); Bun/Creatinine Ratio 25.9 (12.0-20.0); CO2, Blood 29 mmol/L (21-32); Calcium, Blood 9.4 mg/dL (8.5-10.1); Chloride, Blood 91 mmol/L (98-108); Creatinine, Blood 0.81 mg/dL (0.40-1.00); Globulin, Blood 4.5 g/dL (2.2-4.0); Glomerular Filtration Rate >60 (60-); Glucose, Blood 177 mg/dL (70-99); Potassium, Blood 3.2 mmol/L (3.5-5.5); Sodium, Blood 132 mmol/L (136-145); Total Protein, Blood 7.9 g/dL (6.4-8.2); Troponin I <0.015 ng/mL (0.000-0.040)
[2021-02-13 12:37] LABS: Magnesium, Blood 1.1 mg/dL (1.6-2.4)
[2021-02-13 13:16] LABS: Source, Urine Catheter
[2021-02-13 13:23] LABS: Appearance, Urine Hazy (Clear); Bilirubin, Urine Neg (Neg); Blood, Urine 3+ (Neg); Color, Urine Yellow (P-Yellow); Glucose Qualitative, Urine Neg (Neg); Ketones, Urine 2+ (Neg); Leukocyte Esterase, Urine 2+ (Neg); Nitrite, Urine Neg (Neg); Protein, Urine 3+ (Neg); Specific Gravity, Urine 1.015 (1.003-1.022); Urobilinogen, Urine NORM (Normal)
[2021-02-13 13:33] LABS: Bacteria Many /hpf; Squamous Epithelial Cells Rare /hpf (Few)
[2021-02-13] MEDS ORDERED: CEPH500 PO (14:26)
[2021-02-13] MEDS ORDERED: ONDA4ODT MM (14:28)
[2021-02-13] MEDS ORDERED: FAMO20 PO (14:28)
[2021-02-13 14:34] LABS: Influenza A, PCR NEGATIVE (NEGATIVE); Influenza B, PCR NEGATIVE (NEGATIVE); Resp Syncytial Virus, PCR NEGATIVE (NEGATIVE); SARS-Cov-2 (COVID-19) PCR, MMC NEGATIVE (NEGATIVE)
== END 2021-02-13 20:31 | disposition home or self-care (01) ==
LOC: ER 11:37
PROVIDERS: Student in an Organized Health Care Education/Training Program
DX: N39.0 Urinary tract infection, site not specified (principal); E87.6 Hypokalemia; I48.91 Unspecified atrial fibrillation; E83.42 Hypomagnesemia; R11.2 Nausea with vomiting, unspecified; Z88.0 Allergy status to penicillin; Z88.6 Allergy status to analgesic agent; Z88.8 Allergy status to other drugs, medicaments and biological substances; Z88.1 Allergy status to other antibiotic agents; Z88.5 Allergy status to narcotic agent; Z91.048 Other nonmedicinal substance allergy status; Z79.899 Other long term (current) drug therapy; I25.2 Old myocardial infarction; J44.9 Chronic obstructive pulmonary disease, unspecified; E03.9 Hypothyroidism, unspecified; Z87.891 Personal history of nicotine dependence
CPT/HCPCS: 0241U; 51702; 71046; 74176; 80048; 80076; 81001; 83690; 83735; 84484; 85025; 87077; 87086; 87186; 93005; 93010; 96365; 96366; 96367; 96368; 96375; 99285-25; A9270; J0696; J2405; J3010; J3475; J3480; J7030

== ENCOUNTER → 2021-03-13 | Outpatient (CLI) | payer MEDICARE ==
[~2021-03-13] MED LIST changes: +CEPH500 PO; +ONDA4ODT MM
[2021-03-13 16:30] LABS: Urine Magnesium 2.1 mg/dL
== END | disposition home or self-care (01) ==
LOC: LAB 03-12 13:00 → LAB SHORT 13:00
PROVIDERS: Nurse Practitioner Family
DX: E83.42 Hypomagnesemia (principal)
CPT/HCPCS: 81050; 83735

== ENCOUNTER 2021-06-21 18:10 | Inpatient (IN) | payer MEDICARE ==
[~2021-06-21] VITALS: Ht 152.4 cm; Wt 69.7 kg
[2021-06-21 18:43] LABS: BASOPHILS ABSOLUTE AUTO 0.09 K/mm3 (0.00-0.23); BASOPHILS PERCENT AUTO 1 % (0-2); EOSINOPHILS ABSOLUTE AUTO 0.05 K/mm3 (0.00-0.68); EOSINOPHILS PERCENT AUTO 0 % (0-6); Hematocrit 51.6 % (33.0-51.0); Hemoglobin 17.6 g/dL (11.5-16.0); IMMATURE GRAN ABSOLUTE AUTO 0.08 K/mm3 (0.00-0.10); IMMATURE GRAN PERCENT AUTO 1 % (0-1); LYMPHOCYTES ABSOLUTE AUTO 1.41 K/mm3 (0.84-5.20); LYMPHOCYTES PERCENT AUTO 9 % (21-46); MONOCYTES ABSOLUTE AUTO 1.28 K/mm3 (0.16-1.47); MONOCYTES PERCENT AUTO 8 % (4-13); Mean Corpuscular HGB 31.7 pg (26.0-34.0); Mean Corpuscular HGB Conc 34.1 g/dL (31.5-36.5); Mean Corpuscular Volume 93 fL (80-100); Mean Platelet Volume 9.4 fL (9.1-12.4); NEUTROPHILS ABSOLUTE AUTO 12.51 K/mm3 (1.96-9.15); NEUTROPHILS PERCENT AUTO 81 % (41-73); Platelet Count 386 K/mm3 (150-400); RDW Coefficient Variation 13.4 % (11.7-14.2); RDW Standard Deviation 45.7 fL (35.1-46.3); Red Blood Cell Count 5.55 M/mm3 (3.80-5.20); White Blood Cell Count 15.42 K/mm3 (4.00-11.30)
[2021-06-21 19:05] LABS: Calcium, Ionized (POC) 1.05 mmol/L (1.10-1.46); Chloride (POC) 92 mmol/L (98-108); Creatinine (POC) 0.8 mg/dL (0.6-1.0); Glucose (ISTAT POC) 235 mg/dL (70-99); Hemoglobin (POC) 18.7 g/dL (12.0-16.0); Potassium (POC) 2.9 mmol/L (3.5-5.5); Sodium (POC) 136 mmol/L (135-148); Total CO2 (POC) 28 mmol/L (21-32)
[2021-06-21 19:10] LABS: Alanine Aminotransfer (ALT/SGP 42 U/L (12-78); Albumin, Blood 4.3 g/dL (3.4-5.0); Albumin/Globulin Ratio 0.9 (0.8-1.8); Alk Phos 141 U/L (50-136); Anion Gap 12 mmol/L (6-16); Aspartate Aminotrans (AST/SGOT 34 U/L (12-37); Bilirubin, Total 0.8 mg/dL (0.1-1.0); Blood Urea Nitrogen 15 mg/dL (8-24); Bun/Creatinine Ratio 16.2 (12.0-20.0); CO2, Blood 27 mmol/L (21-32); Calcium, Blood 10.3 mg/dL (8.5-10.1); Chloride, Blood 94 mmol/L (98-108); Creatinine, Blood 0.92 mg/dL (0.40-1.00); Glomerular Filtration Rate >60 (60-); Glucose, Blood 238 mg/dL (70-99); Potassium, Blood 3.1 mmol/L (3.5-5.5); Sodium, Blood 133 mmol/L (136-145); Total Protein, Blood 9.3 g/dL (6.4-8.2)
[2021-06-21 19:13] LABS: Magnesium, Blood 1.4 mg/dL (1.6-2.4)
[2021-06-21 20:52] LABS: Source, Urine Clean Catch
[2021-06-21 21:07] LABS: Bilirubin, Urine Neg (Neg); Blood, Urine 2+ (Neg); Glucose Qualitative, Urine 1+ (Neg); Ketones, Urine Neg (Neg); Leukocyte Esterase, Urine 2+ (Neg); Nitrite, Urine Neg (Neg); Protein, Urine 3+ (Neg); Urobilinogen, Urine NORM (Normal)
[2021-06-21 21:17] LABS: Appearance, Urine Clear (Clear); Color, Urine Pale Yellow (P-Yellow)
[2021-06-21 21:18] LABS: Bacteria Few /hpf; Renal Epithelial Rare /hpf (0-Rare); Squamous Epithelial Cells Few /hpf (Few)
[2021-06-21 21:53] LABS: Thyroid Stimulating Hormone 2.67 uIU/mL (0.360-4.800)
--- NOTE | 2021-06-22 01:23 | NUR ---
REPORT RECIEVED FROM TURN DOWN ATTENDANT, PATIENT TO ROOM VIA STRETCHER AT 2241, SLID TO BED. PATIENT IS ALERT AND ORIENTED X4, COOPERATIVE WITH CARE, FOLLOWING COMMANDS. 02 SATS >93% ON RA, DENIES SOB. HR A.FIB 80s-90s, INCREASES UP TO 130s WITH ACTIVITY. CARDIZEM gtt INF AT 5 MG/HR. BP STABLE, PATIENT STATES 2/10 CP AND THAT SHE CAN "FEEL WHEN SHES IN A.FIB". PATIENT IS ABLE TO USE BEDPAN. REPOSITIONS SELF IN BED. CALL LIGHT IN REACH. SEE SHIFT ASSESSMENT FOR MORE DETAIL.
--- NOTE | 2021-06-22 05:34 | NUR ---
SHIFT SUMMARY PATIENT IS ALERT AND ORIENTED X4. 02 SATS 97% ON RA, LS CLEAR TO DIM. HR SR 80s-90s, CONVERTED FROM A.FIB AT APPROX 0322. BP STABLE. CARDIZEM OFF. PT STATES SHES FEELING A LITTLE BETTER. SOME NAUSEA THROUGH THE NIGHT, NO VOMITTING, MEDICATED PER EMAR. NPO SINCE MIDNIGHT. PATIENT USES BEDPAN. REPOSITIONS SELF IN BED. CALL LIGHT IN REACH.
[2021-06-22 05:45] LABS: International Normalized Ratio 1.17; Prothrombin Time Results 12.2 Sec (9.7-11.5)
[2021-06-22 05:49] LABS: Anion Gap 8 mmol/L (6-16); Blood Urea Nitrogen 14 mg/dL (8-24); Bun/Creatinine Ratio 21.7 (12.0-20.0); CO2, Blood 31 mmol/L (21-32); Calcium, Blood 9.1 mg/dL (8.5-10.1); Chloride, Blood 98 mmol/L (98-108); Creatinine, Blood 0.64 mg/dL (0.40-1.00); Glomerular Filtration Rate >60 (60-); Glucose, Blood 128 mg/dL (70-99); Magnesium, Blood 1.8 mg/dL (1.6-2.4); Potassium, Blood 4.1 mmol/L (3.5-5.5); Sodium, Blood 137 mmol/L (136-145)
[2021-06-22] MEDS ORDERED: METO50ER PO (06:12)
[2021-06-22 08:02] LABS: BASOPHILS ABSOLUTE AUTO 0.05 K/mm3 (0.00-0.23); BASOPHILS PERCENT AUTO 0 % (0-2); EOSINOPHILS ABSOLUTE AUTO 0.02 K/mm3 (0.00-0.68); EOSINOPHILS PERCENT AUTO 0 % (0-6); Hematocrit 44.6 % (33.0-51.0); Hemoglobin 14.6 g/dL (11.5-16.0); IMMATURE GRAN ABSOLUTE AUTO 0.05 K/mm3 (0.00-0.10); IMMATURE GRAN PERCENT AUTO 0 % (0-1); LYMPHOCYTES ABSOLUTE AUTO 0.66 K/mm3 (0.84-5.20); LYMPHOCYTES PERCENT AUTO 5 % (21-46); MONOCYTES ABSOLUTE AUTO 0.94 K/mm3 (0.16-1.47); MONOCYTES PERCENT AUTO 7 % (4-13); Mean Corpuscular HGB 31.8 pg (26.0-34.0); Mean Corpuscular HGB Conc 32.7 g/dL (31.5-36.5); Mean Corpuscular Volume 97 fL (80-100); Mean Platelet Volume 9.2 fL (9.1-12.4); NEUTROPHILS ABSOLUTE AUTO 11.57 K/mm3 (1.96-9.15); NEUTROPHILS PERCENT AUTO 87 % (41-73); Platelet Count 275 K/mm3 (150-400); RDW Coefficient Variation 13.8 % (11.7-14.2); RDW Standard Deviation 48.1 fL (35.1-46.3); Red Blood Cell Count 4.59 M/mm3 (3.80-5.20); White Blood Cell Count 13.29 K/mm3 (4.00-11.30)
--- NOTE | 2021-06-22 08:04 | NUR ---
AM NOTE... ASSUMED CARE OF PT AT 0700, THE PT IS A&Ox4. THE PT IS IN SR IN THE 80'S-90'S WITH A STABLE BP, THE PT DENIES CHEST PAIN BUT DOES C/O OF CHEST "DISCOMFORT/A FUNNY FEELING" SINCE CONVERTING BACK TO NSR FROM AFIB. THE PT'S BP IS STABLE, NO EDEMA NOTED ON ASSESSMENT. THE PT IS ON RA WITH O2 SATS >90% L/S CLEAR T/O DIM IN THE BASES. BT PRESENT AND HYPERACTIVE, ABD SOFT AND NONTENDER TO PALPATION. THE PT IS C/O OF NAUSEA RELATED TO BEING "STARVING." MOTOR ANALYST IN THE ROOM THIS AM. PROVIDER WAS CALLED AND THE PT WAS CHANGED FROM NPO TO ADA/CARDIAC DIET. WILL CONTINUE TO MONITOR.
--- NOTE | 2021-06-22 09:33 | NUR ---
PT UPDATE..... ECHO WAS NOT DONE D/T THE PT HAVING NAUSEA WITH DRY HEAVES, Envis DID NOT INFORM THIS RN UNTIL SHE WAS LEAVING THE ROOM. THE PT WAS MEDICATED WITH ZOFRAN WHICH HELPED FOR APROX 45 MINS THEN SHE STARTED DRY HEAVING AGAIN. THE PT'S BP HAS BEEN SLOWLY TRENDING UP TO THE 200'S/120'S SINCE THE START OF THIS SHIFT, THE PT HAS ALSO STARTED C/O OF 5/10 CHEST "DISCOMFORT." PROVIDER AWARE. NEW ORDERS OBTAINED FOR 5MG IV METOPROLOL ONE TIME DOSE, THIS WAS GIVEN WITH GOOD RESULTS. WILL CONTINUE TO MONITOR.
--- NOTE | 2021-06-22 14:06 | NUR ---
PT UPDATE.... AT 1030 THE PT'S BP WENT FROM 145/86 TO 82/73, THIS RN WENT INTO THE ROOM AND THE PT WAS COVARRUBIAS, DIAPHORETIC AND KEPT SAYING "SOMTHING IS WRONG" THIS RN SPOKE WITH THE PROVIDER AND OBTAINED AN ORDER FOR A 500MLS BOLUS OF NS. THE BOLUS WAS STARTED. APROX 15 MINS AFTER THE BOLUS WAS STARTED THE PT'S BP IMPROVED TO 159/1055 THE PT'S COLOR IMPROVED AND THE PT STATED "I FEEL MUCH BETTER." THE PROVIDER CAME TO THE BEDSIDE AND THE BOLUS WAS STOPPED PER ORDERS. THE PT CONTINUES TO C/O OF NAUSEA AND DRY HEAVES WHEN STAFF ARE IN THE ROOM. AT 1200 THE PT'S RHYTHM CHANGED FROM NSR IN THE 80'S-90'S TO SR W/BIGEMINY THE PT WAS SYMPTOMATIC WITH THIS CHANGE AND BECAME DIAPHORETIC AND WAS ALSO C/O OF CHEST "DISOMFORT." THIS RN ATTEMPTED TO GET AN EKG BUT SOON THE PT WAS ASKED TO TURN FROM HER RIGHT SIDE TO HER BACK SHE STATED "I DON'T WANT TO I'M NOT COMFORTABLE ON MY BACK" THIS RN TOLD THE PT IT WOULD ONLY BE FOR A FEW MINUTES JUST TO GET THE EKG, THE PT TURNED ONTO HER BACK AND STARTED SHAKING, WHEN THIS RN ASKED THE PT WHAT WAS WRONG THE PT STATED "I DON'T KNOW WHATS GOING ON." WHEN ASKED IF SHE DOES THIS AT HOME THE PT SATED "NO" THE PT WAS SHAKING SO BAD THE EKG WAS HARD TO READ. DURING THIS TIME THE EKG MONITOR RETURNED TO TRY AND FINISH THE ECHO BUT D/T THE PT'S SHAKING SHE LEFT. SOON THE PT ROLLED BACK ON TO HER RIGHT SIDE THE SHAKING STOPPED. WILL CONTINUE TO MONITOR.
--- NOTE | 2021-06-22 18:13 | NUR ---
SHIFT SUMMARY.... NO ACUTE NEGATIVE CHANGES NOTED, THE PT'S QTc HAS BEEN >600 SINCE 1500 PROVIDER AWARE, MEDICATION CHANGES WERE MADE PER PROVIDER. THE PT CONTINUES TO BE IN SR WITH A RATE IN THE 110'S-120'S, THE PT'S SBP IS IMPROVED BUT THE DBP CONTIUES TO BE IN THE 100'S, PROVIDER AWARE. THE PT DENIES ANY MORE CHEST "DISCOMFORT" AND TROPONINS WERE NOT ELEVATED (SEE LABS) HISTOLOGY SPECIALIST CAME BACK APROX 1700 AND FINISHED THE ECHO. THE PT WENT TO CT FOR A CHEST/ABD/PELVIS CT W/O CONTRAST AND RETUNED WITHOUT ISSUE. THE PT BECAME UPSET WITH THIS RN FOR "NOT HAVING ANYTHING TO EAT OR DRINK FOR 2 DAYS" THIS RN REMINDED THE PT THAT SHE HAS BEEN HAVING NAUSEA WITH DRY HEAVES SINCE LAST NIGHT, THE PT STATED "WELL I DEAL WITH THIS AT HOME AND I DRINK AND DO JUST FINE." THE PT WAS GIVEN ICE CHIPS TO SEE IF SHE COULD TOLERATE THEM AND ADVANCED TO ICE WATER. SINCE THE PT COULD TOLERATE THE ICE WATER SHE WAS GIVEN HER AM DOSE OF METOPROLOL XL 50MG. SO FAR THE PT HAS BEEN ABLE TO TOLERATE SMALL AMOUNTS OF WATER AND A PILL. THE PT HAD A SMALL BROWN BM THIS SHIFT. SHE HAS ALSO BEEN TURNING HERSELF IN BED INDEPENDENTLY. CALL LIGHT IN REACH WILL CONTINUE TO MONITOR UNTIL REPORT IS GIVEN TO ONCOMING RN.
--- NOTE | 2021-06-22 20:00 | NUR ---
ASSUMED CARE OF PT AT 1915. REPORT RECEIVED. PT PRESENTS IN BED. ALERT AND ORIENTED. EASILY NOTED TO BECOME ANXIOUS WITH CARE. NO COMPLAINTS OF CHEST PAIN OR PRESSURE AT THIS TIME. IS ABLE TO MOVE HERSELF ABOUT IN BED ON HE OWN. WILL REVIEW CHART AND PLAN OF CARE FOR THIS PT.
--- NOTE | 2021-06-23 00:59 | NUR ---
HAVE MEDICATED PT ONCE WITH ZOFRAN FOR NAUSEA WELL 10 MG LABATELOL FOR ELEVATED BP WITH HEART RATE 140'S TO 150'S. BOTH AFFECTIVE. PT RESTING IN BED AT THIS TIME WITHOUT COMPLAINT.
[2021-06-23 04:33] LABS: Hematocrit 41.9 % (33.0-51.0); Mean Corpuscular HGB 32.5 pg (26.0-34.0); Mean Corpuscular HGB Conc 33.4 g/dL (31.5-36.5); Mean Corpuscular Volume 97 fL (80-100); Mean Platelet Volume 9.5 fL (9.1-12.4); Platelet Count 348 K/mm3 (150-400); RDW Coefficient Variation 13.9 % (11.7-14.2); RDW Standard Deviation 49.1 fL (35.1-46.3); Red Blood Cell Count 4.31 M/mm3 (3.80-5.20); White Blood Cell Count 16.54 K/mm3 (4.00-11.30)
[2021-06-23 05:10] LABS: Albumin, Blood 3.4 g/dL (3.4-5.0); Anion Gap 14 mmol/L (6-16); Blood Urea Nitrogen 21 mg/dL (8-24); CO2, Blood 23 mmol/L (21-32); Calcium, Blood 8.8 mg/dL (8.5-10.1); Chloride, Blood 96 mmol/L (98-108); Creatinine, Blood 0.81 mg/dL (0.40-1.00); Glomerular Filtration Rate >60 (60-); Glucose, Blood 166 mg/dL (70-99); Phosphorus, Blood 2.9 mg/dL (2.5-4.9); Potassium, Blood 3.3 mmol/L (3.5-5.5); Sodium, Blood 133 mmol/L (136-145)
--- NOTE | 2021-06-23 05:43 | NUR ---
PT HAS BEEN UP TO BEDSIDE COMMODE WHEREAS SHE VOIDS SMALL AMOUNTS OF CONCENTRATED URINE. HAS HAD SEVERAL LOOSE BM'S. PT BECOMES ANXIOUS WITH ANY ACTIVITIES, AND BECOMES NAUSEOUS. PT HAS CONVERTED FROM SINUS RHYTHM SINUS TACH TO AFIB THIS MORNING. HEART RATE 120'S TO 140'S WILL ASSESS NEED TO RESTART CARDIZEM DRIP. PT WOULD NEED TO RETURN TO AT LEAST PCU STATUS IF THIS IS REQUIRED. WILL CONTINUE TO MONITOR PT, AND WILL REPORT OFF TO ONCOMING RN.
--- NOTE | 2021-06-23 06:17 | NUR ---
CALL MADE TO DR MATOS THIS MORNING WITH LABS AND TO INFORM OF PT CHANGING BACK TO AFIB. ORDERS RECEIVED. PO DOSE METOPROLOL GIVEN EARLY. WILL EVALUATE AFFECTIVENESS.
--- NOTE | 2021-06-23 08:07 | NUR ---
AM NOTE... ASSUMED CARE OF PT AT 0700, THE PT IS A&Ox4 ADMITTED FOR AFIB/A FLUTTER W/RVR THE PT WAS IN SR/SINUS TACH SINCE APROX 0300 ON 06/22 UNTIL 314 TODAY (06/23) PROVIDER WAS CALLED AND THE PT WAS RESTARTED ON A CARDIZEM DRIP AT 5MG/HR AND STATUS CHANGED TO PCU STATUS. THE PT'S OTHER VS STABLE, SHE IS ON RA WITH O2 SATS >90% L/S CLEAR IN THE UPPER BASES RIGHT MID AND LOWER LOBE DIM LEFT LOWER LOBE HAS FINE CRACKLES NOTED, THIS IS NEW FROM YESTERDAY'S ASSESSMENT. THE PT DENIES ANY SOB. NO EDEMA NOTED ON ASSESSMENT. THE PT IS IN AFLUTTER 120'S-140 'S. THE PT DENIES ANY CHEST PAIN OR "DISCOMFORT." BT PRESENT AND HYPOACTIVE, ABD IS SOFT AND NONTENDER TO PALPATION. THE PT C/O OF NAUSEA WITH DRY HEAVING WITH NO VOMITING WHILE STAFF ARE IN THE ROOM, WHILE STAFF ARE NOT PRESENT IN THE ROOM THE PT SHOWS NO SIGNS OR SYMPTOMS OF NAUSEA OR DRY HEAVES. BUT PT IS ALSO REQUESTING JELLO AND SOMETHING TO DRINK WHILE C/O OF NAUSEA AND DRY HEAVES. CALL LIGHT IN REACH WILL CONTINUE TO MONITOR
--- NOTE | 2021-06-23 09:34 | NUR ---
PT UPDATE... CARDIOLOGY CONSULT PLACED, SHIP'S CAPTAIN AT THE BEDSIDE TO ASSESS THE PT. NEW ORDERS FOR LABS OBTAINED. WILL CONTINUE TO MONITOR.
--- NOTE | 2021-06-23 10:12 | NUR ---
PT UPDATE.... THE PT CONVERTED TO SINUS TACH IN THE LOW 100'S AT APROX 0830. CARDIZEM DRIP STILL RUNNING AT 5MG/HR, CARDIOLOGY CONSULTED, WAITING ON LABS TO KNOW WHAT THE PLAN OF CARE IS, PT IS CURRENTLY NPO. WILL CONTINUE TO MONITOR.
--- NOTE | 2021-06-23 10:38 | NUR ---
PT UPDATE.... THE PT CONVERTED BACK TO AFIB IN THE 100'S-120'S AT APROX 1030, THE PT DENIES ANY CHEST PAIN/PRESSURE OR "DISCOMFORT" AT THIS TIME. CARDIZEM DRIP STILL RUNNING AT 5MG /HR. WILL CONTINUE TO MONITOR.
--- NOTE | 2021-06-23 11:48 | NUR ---
PT UPDATE.... RAPID COVID TEST DONE AND SENT TO THE LAB, PT TAKEN TO THE PROSTHETIC TECHNICIAN AT 1145, VS STABLE.
--- NOTE | 2021-06-23 12:31 | NUR ---
PT UPDATE.... PT TRANSFERED TO U AFTER THE CUSHION FILLER, REPORT GIVEN TO DORI HURTADOU RN. PT'S BELONGINGS PACKED AND SENT WITH THE PT.
[2021-06-23 12:40] LABS: Influenza A, PCR NEGATIVE (NEGATIVE); Influenza B, PCR NEGATIVE (NEGATIVE); Resp Syncytial Virus, PCR NEGATIVE (NEGATIVE); SARS-Cov-2 (COVID-19) PCR, MMC NEGATIVE (NEGATIVE)
--- NOTE | 2021-06-23 15:05 | NUR ---
UPDATE ALL AIR REMOVED FROM TR BAND. SITE IS CLEAN, DRY, AND INTACT. PT DENIES NUMBNESS OR TINGLING TO DISTAL EXTREMITY. DISTAL PULSES ARE PRESENT AND EQUAL. ARM BOARD IS STILL IN PLACE, PT DENIES C/O PAIN OR DISCOMFORT AT THIS TIME.
--- NOTE | 2021-06-23 17:26 | NUR ---
SHIFT SUMMARY PT HAS BEEN RESTING IN BED SINCE ARRIVING FROM [facility]. PT HAS FREQUENTLY REPOSITIONED SELF FOR COMFORT AND PRESSURE WITH NO DIFFICULTIES. RIGHT RADIAL SITE IS CLEAN, DRY, AND INTACT, NO HEMATOMA AND NO TENDERNESS, DISTAL PULSES ARE PRESENT AND EQUAL. VITAL SIGNS HAVE BEEN STABLE SINCE ARRIVAL. PT C/O CHRONIC PAIN TO THE BACK, TREATED WITH POSITIONING, REST, AND DISTRACTION.
--- NOTE | 2021-06-24 04:46 | NUR ---
SHIFT SUMMARY PT AXO. CONVERTING OFTEN FROM SR TO AFIB. Q6 METOPROLOL 12.5 DOSE ABLE TO CONTROL HR FOR ABOUT 3 HOURS IT WOULD APPEAR BUT THEN HR BEGINS TO TREND 120-140. PT SYMPTOMATIC AT TIMES TO THIS. 0600 DOSE TO BE GIVEN EARLY DUE TO HR MAINTAINING 130. BP STABLE DESPITE HIS. PT C/O OF NAUSEA, REGLAN ADDED VS ZOFRAN DUE TO PT'S NOTED ELONGATED QT. OTHERWISE, PT TOLERATING PO WELL POST REGLAN. PT HAS SLEPT THIS SHIFT, TO HER RELIEF DESPITE NOT HAVING TRAZODONE, MELATONIN ORDERED INSTEAD. POWERGLIDE IN PLACE, DRAWS BLOOD. PT TO BATHROOM A FEW TIMES THIS SHIFT W/OUT INCIDENT. OTHERWISE, CALLLIGHT WITHIN REACH. BED IN LOW POSITION.
[2021-06-24 05:22] LABS: Hematocrit 37.9 % (33.0-51.0); Mean Corpuscular HGB 32.8 pg (26.0-34.0); Mean Corpuscular HGB Conc 34.3 g/dL (31.5-36.5); Mean Corpuscular Volume 96 fL (80-100); Mean Platelet Volume 9.6 fL (9.1-12.4); Platelet Count 306 K/mm3 (150-400); RDW Coefficient Variation 13.7 % (11.7-14.2); RDW Standard Deviation 48.1 fL (35.1-46.3); Red Blood Cell Count 3.96 M/mm3 (3.80-5.20); White Blood Cell Count 14.63 K/mm3 (4.00-11.30)
[2021-06-24 05:54] LABS: Anion Gap 8 mmol/L (6-16); Blood Urea Nitrogen 25 mg/dL (8-24); Bun/Creatinine Ratio 33.9 (12.0-20.0); CO2, Blood 27 mmol/L (21-32); Calcium, Blood 9.2 mg/dL (8.5-10.1); Chloride, Blood 94 mmol/L (98-108); Creatinine, Blood 0.74 mg/dL (0.40-1.00); Glomerular Filtration Rate >60 (60-); Glucose, Blood 154 mg/dL (70-99); Sodium, Blood 129 mmol/L (136-145)
--- NOTE | 2021-06-24 15:00 | NUR ---
HAND-OFF REPORT GIVEN TO ISI OVERTON RN WHO IS ASSUMING CARE OF THIS PT.
--- NOTE | 2021-06-24 17:13 | NUR ---
ASSUMPTION OF CARE ASSUMED CARE OF PT AT 1500. REPORT RECIEVED FROM DORI DE LA CRUZ AT 1450. PT A/O X4 AND COOPERATIVE OF CARE. PT HR RANGING 90-110'S. NO REPORT OF CHEST PAIN/PRESSURE AT TIME OF ASSUING CARE.
--- NOTE | 2021-06-24 17:45 | NUR ---
SHIFT SUMMARY PT A/O X4 SINCE ASSUMING CARE OF PT. PT COOPERATIVE OF CARE. PT REPORTS SOB AND DIZZINESS WHEN UP TO COMMODE, PT INSTRUCTED TO CALL FOR ASSISTANCE WHEN UP IN ROOM. PT HR RANGING 100-130'S, JUMPS TO 150'S WHEN UP IN ROOM. DR CONSULTED ABOUT CURRENT HR, NO CHANGES TO MEDS DUE TO PREVIOUS CHANGES TODAY. BP STABLE THROUGHOUT SHIFT. O2 SATS STABLE THROUGHOUT SHIFT.
--- NOTE | 2021-06-25 05:37 | NUR ---
SHIFT SUMMARY [id number] PT SLEPT INTERMITTENTLY OVERNIGHT. ORIENTED X4, VSS WITH EXCEPTION OF HR W/ AMBULATION IN 150S-160S. AFIB IN 110S-130S AT REST PER PT TREND. ON RA. COMPLAINTS OF CHRONIC BACK AND NECK PAIN. PRNS GIVEN WITH RELIEF. ADEQUATE [facility]OP CONTACTED ON-CALL PROVIDER X1 REGARDING HOME TRAZODONE DOSE FOR SLEEP. SEE EMAR FOR DETAILS. WILL CONTINUE TO MONITOR AND PASS ON TO DAY RN.
--- NOTE | 2021-06-25 17:31 | NUR ---
CARDIAC RHYTHM SWITCHED BETWEEN NSR AND AFIB THROUGHOUT THE SHIFT. HR RANGED FROM 75 TO 150s WITH ACTIVITY. PT C/O SOB AND CHEST PAIN WHEN AMBULATING BETWEEN THE BED AND RESTROOM, WELL DIZZINESS. SEE DOCUMENTED BPs. FAMILY AT BEDSIDE THIS AFTERNOON TO VISIT. NO OTHER ACUTE EVENTS. WILL CONTINUE TO MONITOR AND GIVE REPORT TO ONCOMING SHIFT RN.
--- NOTE | 2021-06-26 00:56 | NUR ---
PT STS THAT SHE FEELS SOB WHEN SHE FALLS ASLEEP. PT'S SATS WERE READING 88% AND INCREASED WVERY SLOWLY. PT WAS PUT ON 1L NC. WILL CONTINUE TO MONITOR. CALL LIGHT IS WITHIN REACH.
--- NOTE | 2021-06-26 06:47 | NUR ---
SHIFT SUMMARY PT IS ALERT AND ORIENTED. DENIES CHEST PAIN/PRESSURE BUT SOME "DISCOMFORT WITH AFIB."PT REPORTED FEELING SOB WHEN LYING DOWN OR SLEEPING, WHEN SATS CHECKED PT WAS SATING 86-88. PT WAS PUT ON 1L NC WHEN REASSESSED SHE WAS >92%. VITLAS ARE STABLE. SHE HAS GONE INTO SR AND AFIB BACK AND FORTH. PT HAS BEEN ABLE TO GET UP AND USE THE BATHROOM. USES CALL LIGHT APPROPRIETLY. CALL LIGHT IS WITHIN REACH.
--- NOTE | 2021-06-26 12:00 | NUR ---
NOON VITALS SKIPPED TO ALLOW PT A PERIOD OF UNINTERRUPTED REST.
--- NOTE | 2021-06-26 17:43 | NUR ---
NO ACUTE EVENTS T/O THE DAY. PT'S BROTHER POOJA CAME TO VISIT HIM, AND AFTER A LENGTHY DISCUSSION WITH PALLIATIVE CARE RN SAVANNAH, HE AGREED TO BE PT'S HEALTHCARE PROXY IF NEEDED. OXYGEN DEMANDS HAVE DECREASED SLIGHTLY, PT SEEMS MORE ALERT AND INTERACTIVE WITH STAFF. VSS. SPO2 DROPS INTO 70s WITH ANY ACTIVITY. PT REMAINED ON BEDREST. WILL CONTINUE TO MONITOR, CALL LIGHT IN REACH.
--- NOTE | 2021-06-26 18:02 | NUR ---
NO ACUTE EVENTS TODAY, PT HR SEEMED TO STAY IN SR MOST OF THE DAY. PT STILL REPORTS RENAE. AWAITING INSURANCE APPROVAL FOR ZOL VEST. OVERNIGHT OXYIMETRY TEST ORDERED FOR TONIGHT. CALL LIGHT IN REACH. WILL CONTINUE TO MONITOR AND GIVE REPORT TO ONCOMING NOC SHIFT RN.
--- NOTE | 2021-06-27 06:09 | NUR ---
SHIFT SUMMARY PT ALERT AND ORIENTED. THERE HAVE BEEN NO ACUTE CHANGES. VITALS ARE STABLE. PT HAS BEEN ON 2L NC AND TOLERATING WELL. SHE STATES THAT SHE IS NOT SOB WHEN SHE GETS UP OR LAYING DOWN. PT HAS BEEN ABLE TO GOT TO THE BATHROOM. CALL LIGHT IS WITHIN REACH.
--- NOTE | 2021-06-27 09:49 | NUR ---
CARE ASSUMPTION THIS RN ASSUMED CARE FROM LUIS DANIEL DE LA CRUZ AT 0700. PATIENT IS ALERT AND ORIENTED X4. NEURO INTACT. MELVIN. REPORTS NO NUMBNESS OR TINGLING. PATIENT REPORTS BACK PAIN RATED AT A 8, 10 BEING THE WORST, AND RECEIVED MEDICATION PER EMAR. UPON REASSESSMENT PATEINT STATED PAIN IS AT 7, AND IS CONTINUING TO TREND DOWN. PATIENT LUNG SOUNDS ARE CLEAR. PATIENT TELE AFIB, BUT FLIPS BACK AND FORTH FROM AFIB TO SR, AND AVERAGES IN THE 70-80S. PATIENT REPORTS NO CHEST PAIN/PRESSURE. THE [employer] ARRIVED THIS AM, AND THE EDUCATOR FROM [employer] EDUCATED THE PATIENT ON THE USE OF IT AND OPPERATING IT. PATIENT ABD IS MILD DISTENTION AND HYPOACTIVE. PATIENT SKIN IS CLEAN DRY AND INTACT. THERE ARE SOME BRUISES ON UPPER ARM FROM IV STARTS, AND RIGHT RADIAL ACCESS SITE WITH SMALL BRUISIING. PATIENT STATED SHE IS READY TO GO HOME. THIS RN CALLED MD ANAND AND INFORMED HER THAT SHE HAD HER LIFE VEST AND IS READY TO GO HOME. THE PATIENT SLEEP STUDY WASN'T ABLE TO BE DONE LAST NIGHT DUE TO NOT GETTING GOOD READINGS, AND THIS RN INFORMED HER THAT DUE TO THIS SHE WOULDN'T BE GOING HOME ON OXYGEN THAT SHE WANTED AT NIGHT. THAT OUR RECOMMENDATION IS THAT SHE STAY ANOTHER NIGHT TO HAVE THE SLEEP STUDY DONE IF SHE FEELS SHE NEEDS OXYGEN WHILE SLEEPING. PATIENT STATED SHE HAD A SLEEP STUDY DONE PREVIOUSLY AND IT WAS INCONCLUSIVE AND WANTED TO GO HOME DESPITE BEING EDUCATED ON OXYGEN USE AT NIGHT AND KNOWING THAT IT IS RECOMMMENED TO STAY ANOTHER NIGHT. SHE STATED SHE FELT COMFORTABLE GOING HOME AND NOT HAVING OXYGEN AT NIGHT HER MAIN CONCERN WAS HER HEART AND SHE HAS HER LIFE VEST. THIS RN INFORMED MD ANAND. FAYE WAITING FOR DISCHARGE ORDERS. ALL PATIENT BELONGINGS HAVE BEEN GATHERED AND IN ONE AREA OF THE PATIENTS ROOM. PATIENT CALLED HER SIGNIFCANT OTHER AND INFORMED THEM THAT SHE WOULD BE COMING HOME. PATIENT IS INDEPENDENT IN THE ROOM, BUT CALLS IF SHE NEEDS ASSISTANCE. CALL LIGHT WITHIN REACH. WILL CONTINUE TO MONITOR AND PROVIDE CARE.
[2021-06-27] MEDS ORDERED: DIGOX250 MCG PO (10:28)
--- NOTE | 2021-06-27 11:07 | NUR ---
FAXED MEDICATIONS TO [facility] THIS RN FAXED OVER THE PATIENT DISCHARGE MEDICATION LIST TO [facility]. PATIENT DIDN'T NEED ANY MEDICATIONS UNTIL TOMORROW AND SAID SHE WOULD PICK IT UP TOMORROW MORNING.
--- NOTE | 2021-06-27 12:07 | NUR ---
DISCHARGE PATIENT REMAINS STABLE WITH NO ACUTE CHANGES THIS SHIFT. PATIENT TOOK ALL OF PATIETN BELONGINGS TO THEIR CAR. PATIENT AT BEDSIDE WHEN THIS RN WENT OVER DISCHARGE EDUCATION AND FOLLOW UP APPOINTMENTS. PATIENT VERABLIZED UNDERSTANDING OF NEW MEDICATION AND WAS INFORMED IT WAS SENT OVER TO HER PHARMACY AND TO BE PICKED UP TOMORROW AM SO SHE CAN TAKE HER MORNING MEDICATIONS. BOTH AND THE PATIENT VERABLIZED UNDERSTANDING OF THIS. AND PATIENT VERBALIZED UNDERSTANDING OF PRINTED HAND OUT EDUCATION PACKETS ON ANGIO, AFIB, AND DIGOXIN. PATIENT AND VERBALIZED UNDERSTANDING OF FOLLOW UP APPOINTMENTS AND STATED THE PATIENT HAD ONE WITH HER HAND WOOD SANDER PRIOR TO THIS VISIT SCHEDULED FOR THIS WEEK. PATIENT LEFT PCU VIA WHEELCHAIR AND IN NO DISTRESS.
== END 2021-06-27 11:48 | disposition home or self-care (01) | DRG 281 ==
LOC: ER 18:10 → ICUW 18:11 → ER 21:20 → ICUW 22:30 → PCU 06-23 10:03 → ICUW 06-23 10:04 → PCU 06-23 12:32
PROVIDERS: Internal Medicine; Internal Medicine Cardiovascular Disease; Physician Assistant; Student in an Organized Health Care Education/Training Program; ADMIT Internal Medicine
PROC: 3E02340 Introduction of Influenza Vaccine into Muscle, Percutaneous Approach (ICD-10-PCS; 2021-06-21)
PROC: 5A2204Z Restoration of Cardiac Rhythm, Single (ICD-10-PCS; principal; 2021-06-23)
PROC: 4A023N7 Measurement of Cardiac Sampling and Pressure, Left Heart, Percutaneous Approach (ICD-10-PCS; 2021-06-23)
PROC: B2111ZZ Fluoroscopy of Multiple Coronary Arteries using Low Osmolar Contrast (ICD-10-PCS; 2021-06-23)
DX: I21.4 Non-ST elevation (NSTEMI) myocardial infarction (principal); I51.81 Takotsubo syndrome; Z20.822 Contact with and (suspected) exposure to COVID-19; I48.91 Unspecified atrial fibrillation; E87.6 Hypokalemia; I25.10 Atherosclerotic heart disease of native coronary artery without angina pectoris; I50.9 Heart failure, unspecified; E83.42 Hypomagnesemia; J44.9 Chronic obstructive pulmonary disease, unspecified; Z23 Encounter for immunization; E03.9 Hypothyroidism, unspecified; M19.90 Unspecified osteoarthritis, unspecified site; F32.A Depression, unspecified; R63.4 Abnormal weight loss; R73.9 Hyperglycemia, unspecified; R11.2 Nausea with vomiting, unspecified; K21.9 Gastro-esophageal reflux disease without esophagitis; G89.29 Other chronic pain; R11.0 Nausea; Z85.118 Personal history of other malignant neoplasm of bronchus and lung; Z92.21 Personal history of antineoplastic chemotherapy; Z68.27 Body mass index [BMI] 27.0-27.9, adult; I25.2 Old myocardial infarction; Z90.2 Acquired absence of lung [part of]; Z95.5 Presence of coronary angioplasty implant and graft; Z90.49 Acquired absence of other specified parts of digestive tract; Z90.89 Acquired absence of other organs; Z98.890 Other specified postprocedural states; Z87.891 Personal history of nicotine dependence; Z88.0 Allergy status to penicillin; Z88.5 Allergy status to narcotic agent; Z88.8 Allergy status to other drugs, medicaments and biological substances; Z79.01 Long term (current) use of anticoagulants; Z79.899 Other long term (current) drug therapy
CPT/HCPCS: 0241U; 36415; 71045; 71250; 74176; 80047; 80048; 80053; 80069; 81001; 82947; 83036; 83690; 83735; 83880; 84145; 84443; 84484; 85014; 85025; 85027; 85610; 87040; 87086; 90686; 93005; 93010; 93306; 93454; 94640; 94664; 94760; 96365; 96368; 96375; 96376; 97110; 97161; 99152; 99291-25; 99292; A9270; C1751; C1769; C1887; C1894; C9113; G0008; G0378; J1200; J1644; J2405; J2765; J2930; J3010; J3475; J3480; J7030; J7040; J7050; Q9967

== ENCOUNTER 2021-07-10 14:26 | Observation (INO) | payer MEDICARE ==
[~2021-07-10] VITALS: Ht 152.4 cm; Wt 66.0 kg
[~2021-07-10 14:26] MED LIST changes: +DIGOX125 MC1 PO; +METO50ER PO
[2021-07-10] MEDS ORDERED: CARV3.125 PO (14:44)
[2021-07-10 15:36] LABS: Alanine Aminotransfer (ALT/SGP 23 U/L (12-78); Albumin, Blood 3.4 g/dL (3.4-5.0); Albumin/Globulin Ratio 0.8 (0.8-1.8); Alk Phos 95 U/L (50-136); Anion Gap 8 mmol/L (6-16); Aspartate Aminotrans (AST/SGOT 14 U/L (12-37); Blood Urea Nitrogen 12 mg/dL (8-24); CO2, Blood 31 mmol/L (21-32); Calcium, Blood 9.7 mg/dL (8.5-10.1); Chloride, Blood 95 mmol/L (98-108); Creatinine, Blood 0.63 mg/dL (0.40-1.00); Globulin, Blood 4.3 g/dL (2.2-4.0); Glomerular Filtration Rate >60 (60-); Glucose, Blood 132 mg/dL (70-99); Potassium, Blood 3.6 mmol/L (3.5-5.5); Sodium, Blood 134 mmol/L (136-145); Total Protein, Blood 7.7 g/dL (6.4-8.2)
[2021-07-10 15:44] LABS: BASOPHILS ABSOLUTE AUTO 0.09 K/mm3 (0.00-0.23); BASOPHILS PERCENT AUTO 1 % (0-2); EOSINOPHILS ABSOLUTE AUTO 0.09 K/mm3 (0.00-0.68); EOSINOPHILS PERCENT AUTO 1 % (0-6); Hematocrit 44.4 % (33.0-51.0); Hemoglobin 14.7 g/dL (11.5-16.0); IMMATURE GRAN ABSOLUTE AUTO 0.07 K/mm3 (0.00-0.10); IMMATURE GRAN PERCENT AUTO 0 % (0-1); LYMPHOCYTES ABSOLUTE AUTO 0.81 K/mm3 (0.84-5.20); LYMPHOCYTES PERCENT AUTO 5 % (21-46); MONOCYTES ABSOLUTE AUTO 1.03 K/mm3 (0.16-1.47); MONOCYTES PERCENT AUTO 7 % (4-13); Mean Corpuscular HGB 31.4 pg (26.0-34.0); Mean Corpuscular HGB Conc 33.1 g/dL (31.5-36.5); Mean Corpuscular Volume 95 fL (80-100); NEUTROPHILS ABSOLUTE AUTO 13.47 K/mm3 (1.96-9.15); NEUTROPHILS PERCENT AUTO 87 % (41-73); Platelet Count 371 K/mm3 (150-400); RDW Coefficient Variation 13.2 % (11.7-14.2); RDW Standard Deviation 46.5 fL (35.1-46.3); Red Blood Cell Count 4.68 M/mm3 (3.80-5.20); White Blood Cell Count 15.56 K/mm3 (4.00-11.30)
[2021-07-10 15:49] LABS: Source, Urine Straight Cath
[2021-07-10 15:49] LABS: International Normalized Ratio 1.12; Prothrombin Time Results 11.7 Sec (9.7-11.5)
[2021-07-10 16:24] LABS: Appearance, Urine Clear (Clear); Bilirubin, Urine Neg (Neg); Blood, Urine 1+ (Neg); Color, Urine Yellow (P-Yellow); Glucose Qualitative, Urine Neg (Neg); Ketones, Urine 1+ (Neg); Leukocyte Esterase, Urine Neg (Neg); Nitrite, Urine Neg (Neg); Protein, Urine 3+ (Neg); Specific Gravity, Urine 1.005 (1.003-1.022); Urobilinogen, Urine NORM (Normal)
[2021-07-10 16:44] LABS: Bacteria Few /hpf; Red Blood Cells, Urine 0-2 /hpf (0-2); Renal Epithelial Few /hpf (0-Rare); Squamous Epithelial Cells Few /hpf (Few)
[2021-07-10 18:52] LABS: CPK Creatine Kinase 34 U/L (26-193)
--- NOTE | 2021-07-11 00:32 | NUR ---
CALLED DR ESPINOZA REGARDING PT HAVING NAUSEA AND NOT SUBSIDING AFTER RECEIVING ZOFRAN. TELEPHONE ORDER FOR REGLAN 10 IV Q6 PRN WAS GIVEN AT APPROX 00:21.
[2021-07-11 02:00] LABS: BASOPHILS ABSOLUTE AUTO 0.05 K/mm3 (0.00-0.23); BASOPHILS PERCENT AUTO 1 % (0-2); EOSINOPHILS ABSOLUTE AUTO 0.19 K/mm3 (0.00-0.68); EOSINOPHILS PERCENT AUTO 2 % (0-6); Hematocrit 35.4 % (33.0-51.0); Hemoglobin 11.8 g/dL (11.5-16.0); IMMATURE GRAN ABSOLUTE AUTO 0.04 K/mm3 (0.00-0.10); IMMATURE GRAN PERCENT AUTO 0 % (0-1); LYMPHOCYTES ABSOLUTE AUTO 1.34 K/mm3 (0.84-5.20); LYMPHOCYTES PERCENT AUTO 13 % (21-46); MONOCYTES ABSOLUTE AUTO 0.84 K/mm3 (0.16-1.47); MONOCYTES PERCENT AUTO 8 % (4-13); Mean Corpuscular HGB 32.1 pg (26.0-34.0); Mean Corpuscular HGB Conc 33.3 g/dL (31.5-36.5); Mean Corpuscular Volume 96 fL (80-100); Mean Platelet Volume 9.4 fL (9.1-12.4); NEUTROPHILS ABSOLUTE AUTO 7.73 K/mm3 (1.96-9.15); NEUTROPHILS PERCENT AUTO 76 % (41-73); Platelet Count 284 K/mm3 (150-400); RDW Coefficient Variation 13.2 % (11.7-14.2); RDW Standard Deviation 47.2 fL (35.1-46.3); Red Blood Cell Count 3.68 M/mm3 (3.80-5.20); White Blood Cell Count 10.19 K/mm3 (4.00-11.30)
[2021-07-11 02:25] LABS: Alanine Aminotransfer (ALT/SGP 22 U/L (12-78); Albumin/Globulin Ratio 0.8 (0.8-1.8); Alk Phos 87 U/L (50-136); Anion Gap 8 mmol/L (6-16); Aspartate Aminotrans (AST/SGOT 19 U/L (12-37); Bilirubin, Total 0.7 mg/dL (0.1-1.0); Blood Urea Nitrogen 11 mg/dL (8-24); Bun/Creatinine Ratio 14.9 (12.0-20.0); CO2, Blood 29 mmol/L (21-32); Calcium, Blood 8.5 mg/dL (8.5-10.1); Chloride, Blood 98 mmol/L (98-108); Creatinine, Blood 0.74 mg/dL (0.40-1.00); Globulin, Blood 3.6 g/dL (2.2-4.0); Glomerular Filtration Rate >60 (60-); Glucose, Blood 107 mg/dL (70-99); Potassium, Blood 3.3 mmol/L (3.5-5.5); Sodium, Blood 135 mmol/L (136-145); Total Protein, Blood 6.6 g/dL (6.4-8.2)
[2021-07-11 02:30] LABS: CPK Creatine Kinase 30 U/L (26-193); Digoxin (Lanoxin) 2.24 ug/mL (0.80-2.00)
--- NOTE | 2021-07-11 06:04 | NUR ---
SHIFT SUMMARY PT IS ALERT AND ORIENTED. VITALS ARE STABLE AND IS ON 1L NC WHILE SLEEPING DUE TO DESATING INTO 80'S. PT WAS SINUS DORA INTO THE 30'S THEN WOULD GO INTO FLUTTER AND QUICKLY BACK INTO SINUS RHYTHM. PT REPORTED FEELING "OFF." SYMPTOMS WERE NAUSEA AND MID CHEST STABBING (UNCOMFORTABLE). MEDICATED PER EMAR. PT HAS BEEN ABLE TO GET UP TO THE BATHROOM SBA. HEPARING GTT IS INFUSING. CALL LIGHT IS WTIHIN REACH.
--- NOTE | 2021-07-11 17:35 | NUR ---
JASON DC'D AT 1735 WHEN RICCIALTO STARTED PER EMAR.
--- NOTE | 2021-07-11 17:47 | NUR ---
PT IS ALERT AND ORIENTED. SHE IS ABLE TO USE THE BATHROOM A SBA. CHEST PAIN HAS PERSISTED THROUGH THE DAY, ALONG W BACK AND NECK PAIN. FENTANYL WAS GIVEN TWICE PRN. POTENTIAL DIGOXIN TOXICITY DETERMINED BY DOCTOR FROM HER INCREASED THERAPEUTIC RANGE. DIGOXIN WAS DISCONTINUED ALONG W HEPARIN AND SHE WAS STARTED ON 40MG XARELTO.
[2021-07-12 04:06] LABS: Anion Gap 7 mmol/L (6-16); Blood Urea Nitrogen 9 mg/dL (8-24); Bun/Creatinine Ratio 13.6 (12.0-20.0); CO2, Blood 29 mmol/L (21-32); Calcium, Blood 8.6 mg/dL (8.5-10.1); Chloride, Blood 102 mmol/L (98-108); Creatinine, Blood 0.66 mg/dL (0.40-1.00); Digoxin (Lanoxin) 1.31 ug/mL (0.80-2.00); Glomerular Filtration Rate >60 (60-); Glucose, Blood 171 mg/dL (70-99); Potassium, Blood 3.1 mmol/L (3.5-5.5); Sodium, Blood 138 mmol/L (136-145)
--- NOTE | 2021-07-12 05:41 | NUR ---
SHIFT SUMMARY PT IS ALERT AND ORIENTED. PT VITALS HAVE BEEN STABLE AND HAS BEEN ON ROOM AIR MOST OF THE EVENING AND 1L NC WHILE ASLEEP WITH SATS ABOVE 92%. PT DENIES PAIN OR SOB. THERE HAS BEEN NO ACUTE CHANGES T/O THE SHIFT. PT HAS BEEN ABLE TO GO TO BATHROOM SBA. SHE HAS BEEN MEDICATED ONCE FOR BACK PAIN AND HAS REPORTED HEADACHES BUT DOES NOT WANT TYLENOL. PT REPORTS FEELING MUCH BETTER THAN THE PREVIOUS NIGHT. CALL LIGHT IS WITHIN REACH.
--- NOTE | 2021-07-12 11:26 | NUR ---
Patient is lying in bed and immediately admits to feeling nausea and discomfort. Pt's RN has been informed and has recently provided aid for these issues. Pt explains that she is not up for conversation but voices appreciation for the spiritual care visit. I will continue to remain available to patient and family.
--- NOTE | 2021-07-12 14:04 | NUR ---
PATIENT HAS BEEN HAVING NAUSEA/VOMITING ALL MORNING AND THIS AFTERNOON SO FAR. IV PHENERGAN AND REGLAN HAVE BEEN GIVEN WITHOUT MUCH IMPROVEMENT. BP IS STILL HIGH AND SHE HAS RECIEVED IV METOPROLOL, HYDRALAZINE, AND SUBLINGUAL NITRO. PATIENT DENIES SOB OR CHEST PAIN AT THIS TIME. SHE IS ABLE TO STAND AND PIVOT TO [facility]. WILL BE GIVING ANOTHER ROUND OF IV HYDRALAZINE SHORTLY. IF NO IMPROVEMENT WILL CALL DR. REBOLLEDO AGAIN. PATIENT HAS CALL LIGHT WITHIN REACH. SHE IS LAYING IN BED WITH LIGHTS OFF. WILL GIVE REPORT TO PRN NURSE SHORTLY.
--- NOTE | 2021-07-12 14:58 | NUR ---
ASSUMPTION OF CARE HANDOFF REPORT RECEIVED FROM KEEGAN Cameron RN.
--- NOTE | 2021-07-12 18:27 | NUR ---
SHIFT SUMMARY PT HAS BEEN SLEEPING OFF AND ON IN BED SINCE ASSUMPTION OF CARE. PT HAS C/O 8/10 CHRONIC PAIN TO THE NECK AND BACK, TREATED PER EMAR, REPOSITIONG, AND UNINTERRUPTED REST. BLOOD PRESSURE HAS BEEN ELEVATED, 185/85, PROVIDER IS AWARE AND ATTEMPTING TO LOWER PHARMACOLOGICALLY. PT HAS DENIED PRESENCE OF CHEST PAIN OR PRESSURE.
--- NOTE | 2021-07-12 20:20 | NUR ---
ASSUMED CARE PT REPORTS FEELING "YUCKY", TIRED AND WITHOUT ENERGY THIS EVENING. BP WAS ELEVATED AND PRN BP WAS GIVEN. PT WAS UNABLE TO AMBULATED TO BATHROOM VS PREVIOUS SHIFT AND IS NOW USING BSC. SHE REPORTS FEELING NAUSEATED, WAS GIVEN ZOFRAN. REPORTS THAT PHENERAGAN GIVEN EARLIER DURING DAY MADE HER FEELING WORSE. CALL LIGHT IS WITHIN REACH. WILL CONTINUE TO MONITOR.
--- NOTE | 2021-07-13 06:18 | NUR ---
SHIFT SUMMARY PT IS ALERT AND ORIENTED X4. PT HAS BEEN VERY WEAK T/O SHIFT. SHE HAS BEEN FEELING NAUSEOUS AND "YUCKY." BP HAS BEEN ELEVATED AND HAD TO BE MEDICATED PER EMAR PRN HYDRALAZINE FOR SYSTOLIC BP ABOVE 180. SYSTOLIC BP THIS AM WAS IN THE 170'S. PT STS THAT DURING THE DAY AFTER AM MEDICATION WERE GIVEN SHE VOMITED. SHE HAS DENIED CHEST PAIN AND SOB. APPROX 0330 PT CONVERTER TO A-FLUTTER PER Lvmae. PT WAS NOT SYMPTOMATIC. PT HAS BEEN ABLE TO PIVOT TO [facility] [place] BUT FEELS VERY WEAK. CALL LIGHT IS WITHIN REACH.
[2021-07-13 09:08] LABS: Anion Gap 8 mmol/L (6-16); Blood Urea Nitrogen 11 mg/dL (8-24); CO2, Blood 30 mmol/L (21-32); Chloride, Blood 95 mmol/L (98-108); Creatinine, Blood 0.65 mg/dL (0.40-1.00); Glomerular Filtration Rate >60 (60-); Glucose, Blood 158 mg/dL (70-99); Potassium, Blood 3.3 mmol/L (3.5-5.5); Sodium, Blood 133 mmol/L (136-145)
--- NOTE | 2021-07-13 18:01 | NUR ---
SHIFT SUMMARY PT HAS BEEN RESTING IN ROOM. PT GOT UP BY STAND-BY ASSIST TO COMMODE AND CHAIR. PT EXHIBITED MILD SOB WITH ACTIVITY BUT RECOVERED QUICKLY. NAUSEA CONTINUED TO BE THE PT'S LARGEST DIFFICULTY WITH LITTLE RELIEF WITH MEDICATION. PT HAS BEEN COOPERATIVE WITH CARES AND UNDERSTANDING OF THE PLAN OF CARE. SBP HAS REMAINED ELEVATED, 156-170, BUT PT REMAINS ASYMPTOMATIC. ALL OTHER VITAL SIGNS STABLE.
[2021-07-14 06:15] LABS: Anion Gap 5 mmol/L (6-16); Blood Urea Nitrogen 12 mg/dL (8-24); Bun/Creatinine Ratio 21.2 (12.0-20.0); CO2, Blood 29 mmol/L (21-32); Calcium, Blood 8.6 mg/dL (8.5-10.1); Chloride, Blood 98 mmol/L (98-108); Creatinine, Blood 0.57 mg/dL (0.40-1.00); Glomerular Filtration Rate >60 (60-); Glucose, Blood 191 mg/dL (70-99); Potassium, Blood 4.7 mmol/L (3.5-5.5); Sodium, Blood 132 mmol/L (136-145)
--- NOTE | 2021-07-14 12:07 | NUR ---
TELEPHONE CALL TO DR. REBOLLEDO REGARDING HYPERTENSION. VERBAL ORDER TO GIVE THE 20MG IV HYDRALAZINE THAT IS ON EMAR.
[2021-07-14] MEDS ORDERED: FAMO20 PO (12:39)
[2021-07-14] MEDS ORDERED: LACTASE3000 UNIT PO (12:40)
== END 2021-07-14 13:30 | disposition home or self-care (01) ==
LOC: ER 14:26 → PCU 18:38
PROVIDERS: Emergency Medicine; Internal Medicine; ADMIT Internal Medicine
DX: R07.89 Other chest pain (principal); I25.2 Old myocardial infarction; J44.9 Chronic obstructive pulmonary disease, unspecified; E03.9 Hypothyroidism, unspecified; E78.5 Hyperlipidemia, unspecified; E11.9 Type 2 diabetes mellitus without complications; I44.0 Atrioventricular block, first degree; I25.10 Atherosclerotic heart disease of native coronary artery without angina pectoris; T46.0X5A Adverse effect of cardiac-stimulant glycosides and drugs of similar action, initial encounter; I11.0 Hypertensive heart disease with heart failure; I50.9 Heart failure, unspecified; E87.6 Hypokalemia; I48.0 Paroxysmal atrial fibrillation; Z95.5 Presence of coronary angioplasty implant and graft; Z87.891 Personal history of nicotine dependence; Z88.0 Allergy status to penicillin; Z88.1 Allergy status to other antibiotic agents; Z88.5 Allergy status to narcotic agent; Z91.09 Other allergy status, other than to drugs and biological substances; Z79.01 Long term (current) use of anticoagulants
CPT/HCPCS: 36415; 71045; 80048; 80053; 80162; 81001; 82550; 82947; 83690; 84484; 85025; 85610; 85730; 93005; 93010; 93308; 93321; 94640; 94664; 94760; 96374; 96375; 96376; 99285-25; A9270; C1751; G0378; J0360; J1644; J2270; J2405; J2550; J2765; J3010; J3480; J7030; J7040; J7050; J7060

== ENCOUNTER 2022-01-06 20:43 | Emergency (ER) | payer MEDICARE ==
[~2022-01-06] VITALS: Ht 152.4 cm; Wt 61.2 kg
[~2022-01-06 20:43] MED LIST changes: +CARV3.125 PO; +LACTASE3000 UNIT PO
[2022-01-06 21:22] LABS: BASOPHILS ABSOLUTE AUTO 0.07 K/mm3 (0.00-0.23); BASOPHILS PERCENT AUTO 0 % (0-2); EOSINOPHILS ABSOLUTE AUTO 0.02 K/mm3 (0.00-0.68); EOSINOPHILS PERCENT AUTO 0 % (0-6); Hematocrit 51.7 % (33.0-51.0); Hemoglobin 18.8 g/dL (11.5-16.0); IMMATURE GRAN ABSOLUTE AUTO 0.06 K/mm3 (0.00-0.10); IMMATURE GRAN PERCENT AUTO 0 % (0-1); LYMPHOCYTES ABSOLUTE AUTO 0.87 K/mm3 (0.84-5.20); LYMPHOCYTES PERCENT AUTO 5 % (21-46); MONOCYTES ABSOLUTE AUTO 1.31 K/mm3 (0.16-1.47); MONOCYTES PERCENT AUTO 7 % (4-13); Mean Corpuscular HGB 34.3 pg (26.0-34.0); Mean Corpuscular HGB Conc 36.4 g/dL (31.5-36.5); Mean Corpuscular Volume 94 fL (80-100); Mean Platelet Volume 9.5 fL (9.1-12.4); NEUTROPHILS ABSOLUTE AUTO 15.36 K/mm3 (1.96-9.15); NEUTROPHILS PERCENT AUTO 87 % (41-73); Platelet Count 330 K/mm3 (150-400); RDW Coefficient Variation 13.4 % (11.7-14.2); RDW Standard Deviation 46.8 fL (35.1-46.3); Red Blood Cell Count 5.48 M/mm3 (3.80-5.20); White Blood Cell Count 17.69 K/mm3 (4.00-11.30)
[2022-01-06 22:18] LABS: Alanine Aminotransfer (ALT/SGP 62 U/L (12-78); Albumin, Blood 4.1 g/dL (3.4-5.0); Albumin/Globulin Ratio 0.9 (0.8-1.8); Alk Phos 118 U/L (50-136); Anion Gap 11 mmol/L (6-16); Aspartate Aminotrans (AST/SGOT 56 U/L (12-37); Bilirubin, Total 0.9 mg/dL (0.1-1.0); Blood Urea Nitrogen 21 mg/dL (8-24); Bun/Creatinine Ratio 25.4 (12.0-20.0); CO2, Blood 31 mmol/L (21-32); Chloride, Blood 87 mmol/L (98-108); Creatinine, Blood 0.83 mg/dL (0.40-1.00); Globulin, Blood 4.4 g/dL (2.2-4.0); Glomerular Filtration Rate 78 (60-); Glucose, Blood 179 mg/dL (70-99); Potassium, Blood 3.4 mmol/L (3.5-5.5); Sodium, Blood 129 mmol/L (136-145); Total Protein, Blood 8.5 g/dL (6.4-8.2)
[2022-01-07 00:19] LABS: Magnesium, Blood 1.3 mg/dL (1.6-2.4)
[2022-01-07 03:10] LABS: Influenza A, PCR NEGATIVE (NEGATIVE); Influenza B, PCR NEGATIVE (NEGATIVE); Resp Syncytial Virus, PCR NEGATIVE (NEGATIVE); SARS-Cov-2 (COVID-19) PCR, MMC NEGATIVE (NEGATIVE)
[2022-01-07] MEDS ORDERED: PROM12.5S PR (04:02)
[2022-01-07] MEDS ORDERED: ONDA4ODT MM (04:02)
== END 2022-01-07 05:52 | disposition home or self-care (01) ==
LOC: ER 20:43
PROVIDERS: Physician Assistant; Student in an Organized Health Care Education/Training Program
DX: K52.9 Noninfective gastroenteritis and colitis, unspecified (principal); E86.0 Dehydration; E87.6 Hypokalemia; E83.42 Hypomagnesemia; I25.2 Old myocardial infarction; J44.9 Chronic obstructive pulmonary disease, unspecified; E03.9 Hypothyroidism, unspecified; I48.91 Unspecified atrial fibrillation; Z88.0 Allergy status to penicillin; Z88.6 Allergy status to analgesic agent; Z91.041 Radiographic dye allergy status; Z88.5 Allergy status to narcotic agent; Z88.8 Allergy status to other drugs, medicaments and biological substances; Z91.048 Other nonmedicinal substance allergy status; Z79.899 Other long term (current) drug therapy; Z79.01 Long term (current) use of anticoagulants; Z87.891 Personal history of nicotine dependence
CPT/HCPCS: 0241U; 36415; 71045; 74176; 80053; 80162; 83690; 83735; 84484; 85025; 93005; 93010; 96361; 96365; 96366; 96368; 96375; 99284-25; A9270; J2405; J2765; J3475; J3480; J7030

== ENCOUNTER 2022-04-16 15:05 | Emergency (ER) | payer MEDICARE ==
[~2022-04-16] VITALS: Ht 157.5 cm; Wt 68.0 kg
[~2022-04-16 15:05] MED LIST changes: +ATOR40TA PO; +PROM12.5S PR; +Promethazine HC25 M1 PO; +TRIDERM28.4 GM TOP; +USTEKINUMAB SQ
[2022-04-16 15:45] LABS: BASOPHILS ABSOLUTE AUTO 0.05 K/mm3 (0.00-0.23); BASOPHILS PERCENT AUTO 0 % (0-2); EOSINOPHILS ABSOLUTE AUTO 0.05 K/mm3 (0.00-0.68); EOSINOPHILS PERCENT AUTO 0 % (0-6); Hematocrit 43.5 % (33.0-51.0); Hemoglobin 15.5 g/dL (11.5-16.0); IMMATURE GRAN ABSOLUTE AUTO 0.06 K/mm3 (0.00-0.10); IMMATURE GRAN PERCENT AUTO 0 % (0-1); LYMPHOCYTES ABSOLUTE AUTO 0.79 K/mm3 (0.84-5.20); LYMPHOCYTES PERCENT AUTO 6 % (21-46); MONOCYTES ABSOLUTE AUTO 0.85 K/mm3 (0.16-1.47); MONOCYTES PERCENT AUTO 6 % (4-13); Mean Corpuscular HGB Conc 35.6 g/dL (31.5-36.5); Mean Corpuscular Volume 95 fL (80-100); Mean Platelet Volume 9.4 fL (9.1-12.4); NEUTROPHILS ABSOLUTE AUTO 12.29 K/mm3 (1.96-9.15); NEUTROPHILS PERCENT AUTO 87 % (41-73); Platelet Count 251 K/mm3 (150-400); RDW Coefficient Variation 11.8 % (11.7-14.2); RDW Standard Deviation 40.9 fL (35.1-46.3); Red Blood Cell Count 4.56 M/mm3 (3.80-5.20); White Blood Cell Count 14.09 K/mm3 (4.00-11.30)
[2022-04-16 15:56] LABS: Albumin, Blood 3.4 g/dL (3.4-5.0); Albumin/Globulin Ratio 0.9 (0.8-1.8); Calcium, Blood 8.9 mg/dL (8.5-10.1); Creatinine, Blood 0.95 mg/dL (0.40-1.00); Globulin, Blood 3.8 g/dL (2.2-4.0); Potassium, Blood 3.1 mmol/L (3.5-5.5); Total Protein, Blood 7.2 g/dL (6.4-8.2)
[2022-04-16] MEDS ORDERED: ONDA4ODT MM (18:01)
== END 2022-04-16 18:19 | disposition home or self-care (01) ==
LOC: ER 15:05
PROVIDERS: Physician Assistant
DX: R11.2 Nausea with vomiting, unspecified (principal); R10.9 Unspecified abdominal pain; I25.2 Old myocardial infarction; J44.9 Chronic obstructive pulmonary disease, unspecified; E03.9 Hypothyroidism, unspecified; Z88.0 Allergy status to penicillin; Z88.8 Allergy status to other drugs, medicaments and biological substances; Z88.5 Allergy status to narcotic agent; Z79.899 Other long term (current) drug therapy; Z79.890 Hormone replacement therapy; Z95.5 Presence of coronary angioplasty implant and graft; Z87.891 Personal history of nicotine dependence
CPT/HCPCS: 71046; 74176; 80053; 83690; 84484; 85025; 93005; 93010; A9270; J1170; J2405

== ENCOUNTER 2022-05-25 18:22 | Inpatient (IN) | payer MEDICARE ==
[~2022-05-25] VITALS: Ht 152.4 cm; Wt 40.2 kg
[~2022-05-25 18:22] MED LIST changes: -USTEKINUMAB SQ
[2022-05-25 18:49] LABS: Hematocrit 52.1 % (33.0-51.0); Hemoglobin 19.1 g/dL (11.5-16.0); Mean Corpuscular HGB 34.2 pg (26.0-34.0); Mean Corpuscular HGB Conc 36.7 g/dL (31.5-36.5); Mean Corpuscular Volume 93 fL (80-100); Platelet Count 186 K/mm3 (150-400); RDW Coefficient Variation 12.7 % (11.7-14.2); RDW Standard Deviation 43.1 fL (35.1-46.3); Red Blood Cell Count 5.59 M/mm3 (3.80-5.20); White Blood Cell Count 20.52 K/mm3 (4.00-11.30)
[2022-05-25 19:10] LABS: Albumin, Blood 3.6 g/dL (3.4-5.0); Albumin/Globulin Ratio 0.9 (0.8-1.8); Bilirubin, Total 1.6 mg/dL (0.1-1.0); Bun/Creatinine Ratio 31.3 (12.0-20.0); Calcium, Blood 9.4 mg/dL (8.5-10.1); Creatinine, Blood 1.5 mg/dL (0.40-1.00); Potassium, Blood 2.6 mmol/L (3.5-5.5); Total Protein, Blood 7.6 g/dL (6.4-8.2)
[2022-05-25 19:13] LABS: BASOPHILS PERCENT MAN 0 % (0-2); EOSINOPHILS PERCENT MAN 0 % (0-6); LYMPHOCYTES ABSOLUTE MAN 0.82 K/mm3 (0.84-5.20); LYMPHOCYTES PERCENT MAN 4 % (21-46); MONOCYTES ABSOLUTE MAN 1.43 K/mm3 (0.16-1.47); MONOCYTES PERCENT MAN 7 % (4-13); NEUTROPHILS ABSOLUTE MAN 18.26 K/mm3 (1.96-9.15); SEG NEUTROPHILS PERCENT MAN 89 % (41-73); TOTAL CELLS COUNTED 100
[2022-05-25 19:42] LABS: Magnesium, Blood 1.7 mg/dL (1.6-2.4)
[2022-05-25 19:51] LABS: Digoxin (Lanoxin) 0.97 ug/mL (0.80-2.00)
[2022-05-25] MEDS ORDERED: DULO60 PO (22:03)
--- NOTE | 2022-05-25 22:45 | NUR ---
PT ARRIVES FROM THE ED TO THE FLOOR VIA ED GURNEY. THE PT IS ABLE TO TRANSFER HERSELF TO THE HOSPITAL BED FROM THE ED GURNEY BY SLIDING OVER. UPON ADMIT THE PT HAS POTASSIUM CHLORIDE RUNNING AT 67.5MLS/HR THROUGH HER IV IN THE L AC. I STARTED NS AT 150MLS/HR ORDERED AND AM NOW RUNNING THE TWO CONGRUENTLY TO HELP ALLEVIATE SOME OF THE BURNING SENSATION IN THE IV SITE REPORTED BY THE PT. THE PT IS AXO X4, BREATHING IS NON-LABORED AND THE PT DENIES ANY PAIN, CHEST PAIN/PRESSURE. THE PT IS NAUSEOUS AND REPORTS FEELING OVERALL WEAK.
--- NOTE | 2022-05-26 04:03 | NUR ---
SHIFT SUMMARY; NO ACUTE CHANGES OVERNIGHT. THE PT RESTED IN THE BED SINCE ADMIT. THE PT HAS BEEN MEDICATED A FEW TIMES FOR NAUSEA, THE NAUSEA SEEMS TO BE GETTING BETTER THE NIGHT PROGRESSES. POTASSIUM CHOLRIDE IS INFUSING CONGRUENTLY WITH NS, BOTH RATES ARE PER ORDERED IN THE EMAR. THE PT IS TOLERATING THE POTASSIUM INFUSION WELL. THE PT IS A STANDBY ASSIST TO THE BSC, 2X DIARRHEA STOOLS THIS EVENING. THE PT IS AXO X4. TELE IS IN PLACE, NSR-SINUS TACH 90-100'S. THE PT DENIES ANY SOB, PAIN OR CHEST PAIN/PRESSURE SINCE ADMIT. CURRENTLY THE PT IS SLEEPING IN BED WITH THE BED IN THE LOWEST POSITION AND THE CALL LIGHT AT BEDSIDE.
[2022-05-26 05:14] LABS: BASOPHILS ABSOLUTE AUTO 0.03 K/mm3 (0.00-0.23); BASOPHILS PERCENT AUTO 0 % (0-2); EOSINOPHILS ABSOLUTE AUTO 0.01 K/mm3 (0.00-0.68); EOSINOPHILS PERCENT AUTO 0 % (0-6); Hematocrit 42.5 % (33.0-51.0); Hemoglobin 15.1 g/dL (11.5-16.0); IMMATURE GRAN ABSOLUTE AUTO 0.09 K/mm3 (0.00-0.10); IMMATURE GRAN PERCENT AUTO 1 % (0-1); LYMPHOCYTES ABSOLUTE AUTO 1.12 K/mm3 (0.84-5.20); LYMPHOCYTES PERCENT AUTO 7 % (21-46); MONOCYTES ABSOLUTE AUTO 1.11 K/mm3 (0.16-1.47); MONOCYTES PERCENT AUTO 7 % (4-13); Mean Corpuscular HGB 33.9 pg (26.0-34.0); Mean Corpuscular HGB Conc 35.5 g/dL (31.5-36.5); Mean Corpuscular Volume 96 fL (80-100); Mean Platelet Volume 9.7 fL (9.1-12.4); NEUTROPHILS ABSOLUTE AUTO 13.82 K/mm3 (1.96-9.15); NEUTROPHILS PERCENT AUTO 85 % (41-73); Platelet Count 156 K/mm3 (150-400); RDW Coefficient Variation 12.9 % (11.7-14.2); RDW Standard Deviation 44.5 fL (35.1-46.3); Red Blood Cell Count 4.45 M/mm3 (3.80-5.20); White Blood Cell Count 16.18 K/mm3 (4.00-11.30)
[2022-05-26 06:07] LABS: Bilirubin, Total 0.8 mg/dL (0.1-1.0); Calcium, Blood 8.2 mg/dL (8.5-10.1); Creatinine, Blood 1.17 mg/dL (0.40-1.00); Potassium, Blood 3.7 mmol/L (3.5-5.5)
--- NOTE | 2022-05-26 11:00 | NUR ---
REPORT GIVEN TO SOCORRO DE LA CRUZ WITH UPDATES.
--- NOTE | 2022-05-26 11:51 | NUR ---
MD REQUESTED IV FLUIDS TO BE STOPPED NOW DUE TO BP.
--- NOTE | 2022-05-26 13:40 | NUR ---
ASSUMING CARE OF PTN AT 1200, REPORT GIVEN BY LESLI DE LA CRUZ. AGREE WITH SHIFT ASSESSMENT DOCUMENTED.
[2022-05-26] MEDS ORDERED: NITROGLYCERIN0.4 M3 SL (14:12)
--- NOTE | 2022-05-26 18:17 | NUR ---
SHIFT SUMMARY PTN REPORTED TO HAVE BAD NECK PAIN OF AN 8/10, MOVING UP TO HER HEAD. PTN MEDICATED PER EMAR, RELAXED AND SLEPT WITH PAIN THEN TOLERABLE AT A 5 OUT OF 10. SHE IS USED TO GENERALIZED PAIN AND IS TAKING ULTRAM WITH SOME RELIEF Q12 HR. IV STARTED LEAKING END SHIFT AND CHARGE NURSE NOTIFIED. CONTINUE TO MONITOR.
--- NOTE | 2022-05-27 04:57 | NUR ---
PATIENT IS ALERT AND ORIENTED X4, COOPERATIVE WITH CARE, NO CONFUSION OR ANXIETY THIS SHIFT. HS BLOOD SUGAR WAS 45, MD CONTACTED AND PROTOCOL FOLLOWED WITH 8 OZ JUICE, AND 1H RECHECK WITH GOOD RESULTS. PRN PAIN MEDICATIONS USED TO TREAT GENERALIZED CHRONIC PAIN, WELL ACUTE NECK, BACK, R ANKLE, AND R RIB PAIN FROM FALL AT HOME. MULTI LOOSE BROWN STOOLS THIS SHIFT. 1X ASSIST TO BSC. TELE NS WITH 1 DEGREE HB. NO OTHER ISSUES TO REPORT.
[2022-05-27 05:18] LABS: BASOPHILS ABSOLUTE AUTO 0.04 K/mm3 (0.00-0.23); BASOPHILS PERCENT AUTO 0 % (0-2); EOSINOPHILS ABSOLUTE AUTO 0.06 K/mm3 (0.00-0.68); EOSINOPHILS PERCENT AUTO 1 % (0-6); Hematocrit 37.4 % (33.0-51.0); Hemoglobin 13.1 g/dL (11.5-16.0); IMMATURE GRAN ABSOLUTE AUTO 0.04 K/mm3 (0.00-0.10); IMMATURE GRAN PERCENT AUTO 0 % (0-1); LYMPHOCYTES ABSOLUTE AUTO 1.64 K/mm3 (0.84-5.20); LYMPHOCYTES PERCENT AUTO 15 % (21-46); MONOCYTES PERCENT AUTO 7 % (4-13); Mean Corpuscular HGB 33.6 pg (26.0-34.0); Mean Corpuscular Volume 96 fL (80-100); Mean Platelet Volume 9.9 fL (9.1-12.4); NEUTROPHILS ABSOLUTE AUTO 8.16 K/mm3 (1.96-9.15); NEUTROPHILS PERCENT AUTO 76 % (41-73); Platelet Count 150 K/mm3 (150-400); RDW Coefficient Variation 12.9 % (11.7-14.2); RDW Standard Deviation 44.5 fL (35.1-46.3); White Blood Cell Count 10.74 K/mm3 (4.00-11.30)
[2022-05-27 05:37] LABS: Albumin, Blood 3.4 g/dL (3.4-5.0); Anion Gap 6 mmol/L (6-16); Blood Urea Nitrogen 20 mg/dL (8-24); Bun/Creatinine Ratio 24.2 (12.0-20.0); CO2, Blood 32 mmol/L (21-32); Calcium, Blood 8.5 mg/dL (8.5-10.1); Chloride, Blood 95 mmol/L (98-108); Creatinine, Blood 0.83 mg/dL (0.40-1.00); Glomerular Filtration Rate 78 (60-); Glucose, Blood 102 mg/dL (70-99); Phosphorus, Blood 2.2 mg/dL (2.5-4.9); Potassium, Blood 2.5 mmol/L (3.5-5.5); Sodium, Blood 133 mmol/L (136-145)
--- NOTE | 2022-05-27 17:58 | NUR ---
SHIFT SUMMARY NO ACUTE CHANGES DURING SHIFT. PT ALERT AND ORIENTED, CALLS APPROPRIATELY. PT REMAINS ON RA, INDEPENDENT IN ROOM. PRT REMAINS SR ON MONITOR. BLOOD SUGARS HAVE REMAINED < 100, PT REMAINS ASYMPTOMATIC. K AND MG REPLACEMENT PER MD ORDERS. PRN PAIN MEDICATIONS ADMINISTERED X 2 TODAY ALONG WITH SCHEDULED MEDS. WILL CONTINUE TO MONITOR. CALL LIGHT WITHIN REACH.
[2022-05-28 05:06] LABS: Hematocrit 40.4 % (33.0-51.0); Hemoglobin 14.2 g/dL (11.5-16.0); Mean Corpuscular HGB 34.2 pg (26.0-34.0); Mean Corpuscular HGB Conc 35.1 g/dL (31.5-36.5); Mean Corpuscular Volume 97 fL (80-100); Mean Platelet Volume 9.3 fL (9.1-12.4); Platelet Count 163 K/mm3 (150-400); RDW Coefficient Variation 12.7 % (11.7-14.2); RDW Standard Deviation 45.6 fL (35.1-46.3); Red Blood Cell Count 4.15 M/mm3 (3.80-5.20); White Blood Cell Count 9.88 K/mm3 (4.00-11.30)
[2022-05-28 05:41] LABS: Calcium, Blood 8.5 mg/dL (8.5-10.1); Creatinine, Blood 0.78 mg/dL (0.40-1.00); Magnesium, Blood 1.8 mg/dL (1.6-2.4); Potassium, Blood 3.3 mmol/L (3.5-5.5)
--- NOTE | 2022-05-28 06:12 | NUR ---
PATIENT REMAINED ALERT AND ORIETNED X4, COOPERATIVE WITH CARE, NO CONFUSION OR ANXIETY. NO SIGNS OF GI BLEED. NO N/V/D THIS SHIFT. NO HYPOGLYCEMIC EVENTS. PATIENT IS IN NEED OF DIABETIC EDUCATION/SUPPORT. PRINT INFORMATION PROVIDED, HOWEVER SHE WOULD BENIFIT FROM A DIABETIC CONSULTS AND COMMUNITY RESOURCES. IND TO BSC THIS SHIFT. TELE NS. PAIN FROM FALL AND CHRONIC BACK TREATED PER JUN. NO OTHER ISSUES TO REPORT.
[2022-05-28] MEDS ORDERED: ATOR40TA PO (14:25)
[2022-05-28] MEDS ORDERED: BACLOFEN5 M1 PO (14:25)
[2022-05-28] MEDS ORDERED: ONDA4ODT MM (14:26)
[2022-05-28] MEDS ORDERED: POTCHL20ER PO (14:27)
[2022-05-28] MEDS ORDERED: POLYETHYLENE G500 G1 PO (14:27)
--- NOTE | 2022-05-28 14:46 | NUR ---
PATIENT DISCHARGED TO HOME ACCOMPNAIED BY HER . IV SALINE LOCKS AD TELEMETRY REMOVED. NEW PRESCRIPTIONS FAXED TO [facility] IN [place] EVEN THOUGH THEY'RE CLOSED UNTIL MONDAY PER PATIENT REQUEST. PT VERBALIZED UNDERSTANDING OF D/C INSTRUCTIONS. OFF UNIT AT 1441 VIA W/C. NO PERSONAL BELONGINGS LEFT BEHIND IN ROOM.
== END 2022-05-28 14:48 | disposition home or self-care (01) | DRG 682 ==
LOC: ER 18:22 → MEDS 20:51
PROVIDERS: Emergency Medicine; Family Medicine; Internal Medicine; Student in an Organized Health Care Education/Training Program; ADMIT Internal Medicine
DX: N17.9 Acute kidney failure, unspecified (principal); I21.A1 Myocardial infarction type 2; E87.1 Hypo-osmolality and hyponatremia; E87.6 Hypokalemia; I48.91 Unspecified atrial fibrillation; I25.10 Atherosclerotic heart disease of native coronary artery without angina pectoris; K52.9 Noninfective gastroenteritis and colitis, unspecified; J44.9 Chronic obstructive pulmonary disease, unspecified; F32.A Depression, unspecified; R77.8 Other specified abnormalities of plasma proteins; E16.2 Hypoglycemia, unspecified; K21.9 Gastro-esophageal reflux disease without esophagitis; E83.42 Hypomagnesemia; E03.9 Hypothyroidism, unspecified; D72.829 Elevated white blood cell count, unspecified; E86.0 Dehydration; K31.84 Gastroparesis; M54.9 Dorsalgia, unspecified; M25.50 Pain in unspecified joint; E86.1 Hypovolemia; E78.00 Pure hypercholesterolemia, unspecified; I10 Essential (primary) hypertension; M19.90 Unspecified osteoarthritis, unspecified site; W22.8XXA Striking against or struck by other objects, initial encounter; Z87.19 Personal history of other diseases of the digestive system; Z87.440 Personal history of urinary (tract) infections; Z95.5 Presence of coronary angioplasty implant and graft; I25.2 Old myocardial infarction; Z98.890 Other specified postprocedural states; Z90.49 Acquired absence of other specified parts of digestive tract; Z90.710 Acquired absence of both cervix and uterus; Z90.721 Acquired absence of ovaries, unilateral; Z98.1 Arthrodesis status; Z87.891 Personal history of nicotine dependence; Z85.118 Personal history of other malignant neoplasm of bronchus and lung; Z92.21 Personal history of antineoplastic chemotherapy; Z88.5 Allergy status to narcotic agent; Z88.8 Allergy status to other drugs, medicaments and biological substances; Z88.0 Allergy status to penicillin; Z91.041 Radiographic dye allergy status; Z91.048 Other nonmedicinal substance allergy status; Z79.51 Long term (current) use of inhaled steroids; Z79.02 Long term (current) use of antithrombotics/antiplatelets; Z79.899 Other long term (current) drug therapy
CPT/HCPCS: 36415; 71046; 74176; 80048; 80053; 80069; 80162; 82272; 82947; 83690; 83735; 84484; 85025; 85027; 86850; 86900; 86901; 93005; 93010; 94640; 94664; 94760; 94762; 96365; 96375; 99285-25; A9270; C9113; G0378; J0360; J1170; J1815; J2405; J3010; J3475; J3480; J7030; J7040; J7050

== ENCOUNTER 2022-08-01 07:34 | Day surgery (SDC) | payer MEDICARE ==
[~2022-08-01] VITALS: Ht 152.4 cm; Wt 61.2 kg
[~2022-08-01 07:34] MED LIST changes: +BACLOFEN5 M1 PO; +DULO60 PO; +NITROGLYCERIN0.4 M3 SL; +POLYETHYLENE G500 G1 PO; +POTCHL20ER PO
[2022-08-01] MEDS ORDERED: TRAZ50 (07:56)
[2022-08-01] MEDS ORDERED: SPIR25 (07:56)
[2022-08-01] MEDS ORDERED: TRIA15CR3 (07:57)
[2022-08-01] MEDS ORDERED: PROM12.5S (07:57)
[2022-08-01 10:48] VITALS: BP 173/87
== END 2022-08-01 10:15 | disposition home or self-care (01) ==
LOC: ORSCSDS 07:34
PROVIDERS: Internal Medicine Gastroenterology
PROC: 0DB68ZX Excision of Stomach, Via Natural or Artificial Opening Endoscopic, Diagnostic (ICD-10-PCS; principal; 2022-08-01 09:00)
PROC: 0DB98ZX Excision of Duodenum, Via Natural or Artificial Opening Endoscopic, Diagnostic (ICD-10-PCS; principal; 2022-08-01 09:00)
DX: D50.0 Iron deficiency anemia secondary to blood loss (chronic) (principal); R11.2 Nausea with vomiting, unspecified; K29.70 Gastritis, unspecified, without bleeding; K57.30 Diverticulosis of large intestine without perforation or abscess without bleeding; Z86.010 Personal history of colon polyps; Z79.899 Other long term (current) drug therapy
CPT/HCPCS: 88305; 88342; J2704; J7120

== ENCOUNTER 2022-11-28 10:34 | Inpatient (IN) | payer MEDICARE ==
[~2022-11-28] VITALS: Ht 160 cm; Wt 55.6 kg
[~2022-11-28 10:34] MED LIST changes: -EUTHYROX88 MCG PO; +LEVSOD88 PO; +Neurontin 100100 MG PO; +PROM12.5S; +SPIR25 PO; +TRAM50; +TRIA15CR3 TOP
[2022-11-28 12:11] LABS: BASOPHILS ABSOLUTE AUTO 0.06 K/mm3 (0.00-0.23); BASOPHILS PERCENT AUTO 0 % (0-2); EOSINOPHILS ABSOLUTE AUTO 0.05 K/mm3 (0.00-0.68); EOSINOPHILS PERCENT AUTO 0 % (0-6); Hematocrit 45.8 % (33.0-51.0); Hemoglobin 15.4 g/dL (11.5-16.0); IMMATURE GRAN ABSOLUTE AUTO 0.05 K/mm3 (0.00-0.10); IMMATURE GRAN PERCENT AUTO 0 % (0-1); LYMPHOCYTES ABSOLUTE AUTO 1.26 K/mm3 (0.84-5.20); LYMPHOCYTES PERCENT AUTO 8 % (21-46); MONOCYTES ABSOLUTE AUTO 0.83 K/mm3 (0.16-1.47); MONOCYTES PERCENT AUTO 5 % (4-13); Mean Corpuscular HGB 31.3 pg (26.0-34.0); Mean Corpuscular HGB Conc 33.6 g/dL (31.5-36.5); Mean Corpuscular Volume 93 fL (80-100); Mean Platelet Volume 9.8 fL (9.1-12.4); NEUTROPHILS ABSOLUTE AUTO 13.45 K/mm3 (1.96-9.15); NEUTROPHILS PERCENT AUTO 86 % (41-73); Platelet Count 509 K/mm3 (150-400); RDW Coefficient Variation 11.9 % (11.7-14.2); RDW Standard Deviation 41.4 fL (35.1-46.3); Red Blood Cell Count 4.92 M/mm3 (3.80-5.20)
[2022-11-28 12:33] LABS: Albumin, Blood 3.4 g/dL (3.4-5.0); Albumin/Globulin Ratio 0.8 (0.8-1.8); Bilirubin, Total 0.7 mg/dL (0.1-1.0); Bun/Creatinine Ratio 30.7 (12.0-20.0); Calcium, Blood 9.8 mg/dL (8.5-10.1); Creatinine, Blood 0.75 mg/dL (0.40-1.00); Globulin, Blood 4.4 g/dL (2.2-4.0); Magnesium, Blood 1.4 mg/dL (1.6-2.4); Potassium, Blood 3.9 mmol/L (3.5-5.5); Total Protein, Blood 7.8 g/dL (6.4-8.2)
[2022-11-28 13:23] LABS: Digoxin (Lanoxin) 1.14 ug/mL (0.80-2.00)
[2022-11-28 13:58] LABS: Free Thyroxine 1.29 ng/dL (0.70-1.60)
[2022-11-28 14:00] LABS: Triiodothyronine, Free 1.88 pg/mL (2.18-3.98)
[2022-11-28 14:43] LABS: Source, Urine Straight Cath
[2022-11-28 15:54] LABS: Appearance, Urine Clear (Clear); Bilirubin, Urine Neg (Neg); Blood, Urine Neg (Neg); Color, Urine Yellow (P-Yellow); Glucose Qualitative, Urine Neg (Neg); Ketones, Urine Neg (Neg); Leukocyte Esterase, Urine Neg (Neg); Nitrite, Urine Neg (Neg); Protein, Urine 1+ (Neg); Urobilinogen, Urine NORM (Normal); pH, Urine 6.5 (5.0-8.0)
[2022-11-28 19:52] VITALS: BP 134/110
[2022-11-28] MEDS ORDERED: GABA100 PO (20:02)
[2022-11-28] MEDS ORDERED: METO25ER PO (20:03)
[2022-11-28] MEDS ORDERED: PROM25 PO (20:04)
[2022-11-28] MEDS ORDERED: OXAYDO5 M6 PO (20:08)
[2022-11-28] MEDS ORDERED: SKYRIZI150 MG/1 M SC (20:09)
[2022-11-28] MEDS ORDERED: BACL10 PO (20:10)
[2022-11-29 04:49] VITALS: BP 120/77
[2022-11-29 06:04] LABS: BASOPHILS ABSOLUTE AUTO 0.05 K/mm3 (0.00-0.23); BASOPHILS PERCENT AUTO 1 % (0-2); EOSINOPHILS ABSOLUTE AUTO 0.24 K/mm3 (0.00-0.68); EOSINOPHILS PERCENT AUTO 3 % (0-6); Hematocrit 32.5 % (33.0-51.0); Hemoglobin 10.9 g/dL (11.5-16.0); IMMATURE GRAN ABSOLUTE AUTO 0.03 K/mm3 (0.00-0.10); IMMATURE GRAN PERCENT AUTO 0 % (0-1); LYMPHOCYTES ABSOLUTE AUTO 1.78 K/mm3 (0.84-5.20); LYMPHOCYTES PERCENT AUTO 19 % (21-46); MONOCYTES ABSOLUTE AUTO 0.89 K/mm3 (0.16-1.47); MONOCYTES PERCENT AUTO 10 % (4-13); Mean Corpuscular HGB 31.2 pg (26.0-34.0); Mean Corpuscular HGB Conc 33.5 g/dL (31.5-36.5); Mean Corpuscular Volume 93 fL (80-100); Mean Platelet Volume 10.1 fL (9.1-12.4); NEUTROPHILS ABSOLUTE AUTO 6.37 K/mm3 (1.96-9.15); NEUTROPHILS PERCENT AUTO 68 % (41-73); Platelet Count 281 K/mm3 (150-400); RDW Coefficient Variation 11.9 % (11.7-14.2); RDW Standard Deviation 40.7 fL (35.1-46.3); Red Blood Cell Count 3.49 M/mm3 (3.80-5.20); White Blood Cell Count 9.36 K/mm3 (4.00-11.30)
[2022-11-29 06:47] LABS: Bun/Creatinine Ratio 25.6 (12.0-20.0); Calcium, Blood 8.2 mg/dL (8.5-10.1); Creatinine, Blood 0.63 mg/dL (0.40-1.00); Magnesium, Blood 1.5 mg/dL (1.6-2.4); Potassium, Blood 3.2 mmol/L (3.5-5.5)
--- NOTE | 2022-11-29 07:34 | NUR ---
Shift Summary Pt arrived from ER with dx of Sepsis. She came in d/t increasing weakness and fatigue. She is one assist w/ FWW to the BR or to the BSC. She had nausea and dry heaving in the ER but no nasuea on this unit. Pt states she had a BM 11/28. Troponins are elevated but trending down, last lab was 1260. She had recent surgery on her neck and is still experiencing pain, medicated per emar. AOx4, cooperative.
[2022-11-29 07:51] VITALS: BP 129/83
[2022-11-29 16:06] VITALS: BP 156/106
--- NOTE | 2022-11-29 17:55 | NUR ---
SHIFT SUMMARY: PT A&O X4. PT PLEASANT AND COOPERATIVE WITH ALL CARE. PT HAD 7/10 PAIN TWICE THIS SHIFT IN NECK. OXYCODONE AND BACLOFEN GIVEN PER EMAR. NAUSEA MEDICATION GIVEN PER EMAR. PT BEGAN HAVING CHEST PAIN THAT RADIATED TO BACK THIS AFTERNOON AND WORSE WHILE LYING DOWN. TWO DOSES NITRO GIVEN WHICH RESOLVED PAIN. PT ALSO C/O SOB THIS SHIFT. PT HAS POOR PERFUSION BUT ABLE TO GET 02 READINGS AFTER WARM BLANKETS TO HANDS RANGING MID TO HIGH 90'S. PT RECEIVED ONE TIME DOSE OF 40MEQ POTASSIUM AND 100ML IV MAGNESIUM. REPEAT POTASSIUM DRAWN SHOWING IMPROVEMENT. IV IN R. HAND AND L. AC BLEEDING/LEAKING. NEW IV PLACED BY CLINICAL PROFESSOR IN RFA CURRENTLY INFUSING IV ABX. PT ANXIOUS ABOUT ONSET CHEST/BACK PAIN. PT INDEPENDENT TO BSC. CALL LIGHT IN REACH. BED IN LOWEST POSITION. WILL CONTINUE TO MONITOR.
[2022-11-29 19:15] VITALS: BP 132/96
[2022-11-30 02:24] VITALS: BP 130/80
--- NOTE | 2022-11-30 06:32 | NUR ---
Shift Summary No c/o of chest pain or pressure this evening. Pt did have neck pain r/t her recent surgery and some back pain this morning, medicated per emar. She moves independently in the room to the [facility]. Slept well t/o most of the night. Tele called once to report a 6 beat run of V-Tach. No c/o of nasuea. AOx4, vss.
[2022-11-30 06:55] LABS: Magnesium, Blood 1.5 mg/dL (1.6-2.4)
[2022-11-30 06:56] LABS: Albumin, Blood 3.3 g/dL (3.4-5.0); Anion Gap 6 mmol/L (6-16); Blood Urea Nitrogen 11 mg/dL (8-24); Bun/Creatinine Ratio 18.2 (12.0-20.0); CO2, Blood 28 mmol/L (21-32); Calcium, Blood 9.5 mg/dL (8.5-10.1); Chloride, Blood 102 mmol/L (98-108); Glomerular Filtration Rate 98 (60-); Glucose, Blood 115 mg/dL (70-99); Phosphorus, Blood 3.5 mg/dL (2.5-4.9); Potassium, Blood 3.5 mmol/L (3.5-5.5); Sodium, Blood 136 mmol/L (136-145)
[2022-11-30 07:46] VITALS: BP 133/97
--- NOTE | 2022-11-30 11:26 | NUR ---
PATIENT C/O ACTIVE CHEST PAIN, 11/10, RADIATING FROM CHEST TO BACK. ENDORSES NAUSEA AND DIZZINESS WELL. TELEMETRY SHOWS ATRIAL FLUTTER 100-110 BPM. EXTREMITIES ARE MOTTLED (PT C/O BEING COLD), CYANOSIS IN FINGERNAILS, UNABLE TO GET ADEQUATE O2 SAT READING; PLACED ON O2 @ 1 L/MIN NC. REPORTED TO DR. ANAND BY PHONE, RECEIVED TELEPHONE ORDERS FOR EKG AND TROPONIN X 1. ORDERS PLACED. EKG IN PROCESS AT THIS TIME. WILL CONTINUE TO MONITOR.
--- NOTE | 2022-11-30 12:07 | NUR ---
LABS DRAWN, PT COMPLAINS OF NAUSEA, DISSINESS, AND FEELING GENERALIZED WEAKNESS. REPORTED CHEST PAIN RELIEVED WITH ADMINISTRATION OF NITRO, REPORTS CONTINUING FEELINGS OF WEIGHT ON HER CHEST. [employer] [facility] REPORTS A-FLUTTER IN THE 80S AT 12:25. WILL CONTINUE TO MONITOR. PT LEFT IN A POSITION OF COMFORT WITH CALL LIGHT WITHIN REACH, BED LOCKED AND IN LOW POSITION, NONSKID SOCKS IN PLACE.
[2022-11-30 16:06] VITALS: BP 161/123
[2022-11-30 16:53] VITALS: BP 156/116
--- NOTE | 2022-11-30 16:55 | NUR ---
PT IV SHOWING REDNESS AND SWELLING, D/LIZ IV AND WILL CONTINUE TO MONITOR SITE FOR SIGNS OF INFILTRATION
--- NOTE | 2022-11-30 17:19 | NUR ---
[facility] CALLED REGARDING THYROID RESULTS, PHYSICIAN INFORMED. BP AND PULSE ELEVATED, PHYSICIAN NOTIFIED. INSTRUCTED TO GIVE EVENING DOSE OF METOPROLOL NOW.
--- NOTE | 2022-11-30 17:49 | NUR ---
SHIFT SUMMARY PT COMPLAINS OF CHEST PAIN, RELIEVED WITH NITRO. TROPONIN LEVELS CONTINUE TO TREND DOWN. PT IV INFILTRATED, REQUIRES INSERTION OF A POWERGLIDE. BP AND PULSE REMAIN ELEVATED WITH THE PT EXPERIENCING A-FLUTTER REPORTED BY SOCIAL INSURANCE ADVISER. PT COMPLAINS OF GENERALIZED WEAKNESS AND NAUSEA THROUGHOUT SHIFT THAT WAS MANAGED THROUGH ZOFRAN AND PHENERGAN ADMINISTRATION. PT REMAINED FREE OF FALLS DURING MY SHIFT.
[2022-11-30 20:33] VITALS: BP 153/92
[2022-12-01] VITALS (7 sets, daily range): BP systolic 65–171; BP diastolic 55–115
[2022-12-01 04:57] LABS: Hematocrit 42.2 % (33.0-51.0); Hemoglobin 14.5 g/dL (11.5-16.0); Mean Corpuscular HGB 31.5 pg (26.0-34.0); Mean Corpuscular HGB Conc 34.4 g/dL (31.5-36.5); Mean Corpuscular Volume 92 fL (80-100); Mean Platelet Volume 10.2 fL (9.1-12.4); Platelet Count 350 K/mm3 (150-400); RDW Coefficient Variation 11.8 % (11.7-14.2); RDW Standard Deviation 39.6 fL (35.1-46.3); White Blood Cell Count 12.62 K/mm3 (4.00-11.30)
[2022-12-01 05:27] LABS: Anion Gap 9 mmol/L (6-16); Blood Urea Nitrogen 11 mg/dL (8-24); Bun/Creatinine Ratio 21.6 (12.0-20.0); CO2, Blood 23 mmol/L (21-32); Calcium, Blood 9.4 mg/dL (8.5-10.1); Chloride, Blood 103 mmol/L (98-108); Creatinine, Blood 0.51 mg/dL (0.40-1.00); Glomerular Filtration Rate 102 (60-); Glucose, Blood 127 mg/dL (70-99); Magnesium, Blood 1.7 mg/dL (1.6-2.4); Potassium, Blood 3.9 mmol/L (3.5-5.5); Sodium, Blood 135 mmol/L (136-145)
--- NOTE | 2022-12-01 05:32 | NUR ---
SHIFT SUMMERY, PT RESTING IN BED, PT NOT RETING WELL. PT MEDICATED X 2 FOR NECK AND BACK PAIN. PT DENIED ANY CP. PT HAS A NEW I TO HER RIGHT AC OTHER IV OUT AND STAFF UNABLE TO GET IN , COMPUTER SECURITY COORDINATOR PLACED WITH IV SCAN MACHINE. PT UP TO BSC TO VOID DURRING THE NIGHT. PT HAVING DIFFICULTY GETTING COMFORTABLE.PT HAS ON TELE , HAD 5 SEC OF RVR THENBACK DOWN TO 80-90 PER TELE TECK, PT NO CO CP.
--- NOTE | 2022-12-01 08:38 | NUR ---
ADMINISTERED PRESCRIBED ROXYCODONE TO PT FOR 8/ PAIN, PT DROPPED MEDICATION DURING ADMINISTRATION. WASTED WITH JONO MENDEZ AND ADMINISTERED NEW MEDICATION.
--- NOTE | 2022-12-01 10:11 | NUR ---
PHYSICIAN IN TO SEE PT AND DISCUSS DC PLAN. PT ORDERED TO EVAULATE AND TREAT PT. PT VERBALIZES VERTIGO. PHYSICIAN DISCUSSED THE DC OF ANTIBIOTICS. MEDICATIONS ADMINISTERED TO PT. PT A&OX4. BED LOCKED AND IN LOW POSITION. PT USES CALL LIGHT APPROPRIATELY.
--- NOTE | 2022-12-01 10:43 | NUR ---
PT COMPLAINS OF CHEST PAIN. VASCULAR MANAGER REPORTS SINUS RHYTHM AT 88. VITALS OBTAINED. NITRO ADMINISTERED.
--- NOTE | 2022-12-01 16:23 | NUR ---
PT CONVERTED TO AFIB FROM NORMAL SINUS REPORTED BY [employer].
--- NOTE | 2022-12-01 17:55 | NUR ---
SHIFT SUMMARY PT EXPERIENCED CHEST PAIN, VITALS WERE TAKEN AND NITRO ADMINISTERED. PHYSICIAN ALERTED AND REQUESTED AN EKG, TROPONIN, AND CARDIOLOGY CONSULT. TROPONINS STILL TRENDING DOWN AT 190. CARDIOLOGY DISCUSSED PLAN WITH PT, ORDERED NIRTO PATCH, CARVEDOLOL, AND AMPLODIPINE. METOPROLOL WAS DCED. ANGINA RELIEVED WITH THE NITRO PATCH. PT STILL COMPLAINS OF 6-9/10 NECK PAIN AFTER ADMINISTRATION OF PRESCRIBED OXYCODONE, APPLIED ICE PACK TO RELIEVE PAIN. PAIN STILL NOT CONTROLED. PT A&OX4. PT REMAINED FREE OF FALLS DURING MY SHIFT. PT LEFT IN A POSITION OF SAFETY AND COMFORT WITH BED LOCKED AND IN LOW POSITION WITH CALL LIGHT WITHIN REACH.
[2022-12-02] VITALS (7 sets, daily range): BP systolic 94–147; BP diastolic 55–106
--- NOTE | 2022-12-02 04:32 | NUR ---
SHIFT SUMMARY PATIENT A/0x4, PLEASANT, COOPERATIVE WITH ALL CARES. ABLE TO MAKE NEEDS KNOWN. C/O ACUTE/CHRONIC PAIN TO NECK RECEIVED PRN OXYCODONE X2 THIS SHIFT, WITH SOME RELIEF ACHIEVED. AT 2029, PATIENT C/O FEELING DIZZY, LIGHT HEADED, UNABLE TO SIT UP. OBTAINED VS, BP 65/55, PROVIDER NOTIFIED, RECEIVED NEW ORDERS TO REMOVE NITRO PATCH, HAVE PATIENT LAY FLAT, AND ADMINISTER 1L NS BOLUS. ALL COMPLAINTS HAVE RESOLVED, PATIENT STATED FEELING MUCH BETTER, BP RETURNED TO BASELINE, VSS, SPO2 100% ON RA. PATIENT STATES NECK STILL ACHES BUT TOLERABLE. APPEARES TO BE ASLEEP IN BED AT THIS TIME, RESTING COMFORTABLY IN NO ACUTE DISTRESS. CONTINUES ON TELE, SR 60-70s. NOTED TO BE IN AFib ON DAY SHIFT. BED LOCKED IN LOW POSITION, CALL LIGHT WITHIN REACH.
[2022-12-02 08:37] LABS: BASOPHILS ABSOLUTE AUTO 0.06 K/mm3 (0.00-0.23); BASOPHILS PERCENT AUTO 1 % (0-2); EOSINOPHILS ABSOLUTE AUTO 0.32 K/mm3 (0.00-0.68); EOSINOPHILS PERCENT AUTO 4 % (0-6); Hematocrit 32.3 % (33.0-51.0); IMMATURE GRAN ABSOLUTE AUTO 0.03 K/mm3 (0.00-0.10); IMMATURE GRAN PERCENT AUTO 0 % (0-1); LYMPHOCYTES ABSOLUTE AUTO 1.32 K/mm3 (0.84-5.20); LYMPHOCYTES PERCENT AUTO 15 % (21-46); MONOCYTES PERCENT AUTO 7 % (4-13); Mean Corpuscular HGB 31.6 pg (26.0-34.0); Mean Corpuscular HGB Conc 34.1 g/dL (31.5-36.5); Mean Corpuscular Volume 93 fL (80-100); Mean Platelet Volume 10.3 fL (9.1-12.4); NEUTROPHILS ABSOLUTE AUTO 6.67 K/mm3 (1.96-9.15); NEUTROPHILS PERCENT AUTO 74 % (41-73); Platelet Count 273 K/mm3 (150-400); RDW Coefficient Variation 11.9 % (11.7-14.2); RDW Standard Deviation 39.8 fL (35.1-46.3); Red Blood Cell Count 3.48 M/mm3 (3.80-5.20)
[2022-12-02 09:09] LABS: Creatinine, Blood 0.62 mg/dL (0.40-1.00); Potassium, Blood 3.8 mmol/L (3.5-5.5)
--- NOTE | 2022-12-02 11:56 | NUR ---
Patient alert & oriented x4. ECHO done this AM & resulted. Patient reported intermittent chest pain noted under right breast radiating to lower back. Telemetry NSR, no events this shift. Door Machine Operator instructed RN to stop Xarelto & start Heparin drip. Plan for wood preserving plant laborer on monday. Patient complaining of severe BENEDICT d/t nitro patch, cardiology instructed RN to remove patch. MD assessed patient at bedside plan to move patient to PCU d/t NSTEMI & requiring Heparin gtt. PO Xarelto given this AM, medication has been discontinued.
--- NOTE | 2022-12-02 17:57 | NUR ---
PT TRANSFERED FROM MEDICAL FLOOR THIS AFTERNOON. PT ARRIVES A/O X4. REPORTS INTERMITTENT RT SIDED CHEST PAIN THAT COMES AND GOES WITHIN MINUTES, IT RESOLVES WITHOUT INTERVENTION. PLAN IS TO BEGIN HEPARIN TOMORROW AND ANGIO ON MONDAY. VSS, WITH OCCASIONALLY SOFT BP, THIS TREND OF SOFT BP ALSO OCCURED ON MEDICAL FLOOR.
[2022-12-03 04:00] VITALS: BP 115/86
[2022-12-03 04:17] LABS: BASOPHILS ABSOLUTE AUTO 0.06 K/mm3 (0.00-0.23); BASOPHILS PERCENT AUTO 1 % (0-2); EOSINOPHILS ABSOLUTE AUTO 0.29 K/mm3 (0.00-0.68); EOSINOPHILS PERCENT AUTO 3 % (0-6); Hematocrit 33.9 % (33.0-51.0); Hemoglobin 11.6 g/dL (11.5-16.0); IMMATURE GRAN ABSOLUTE AUTO 0.04 K/mm3 (0.00-0.10); IMMATURE GRAN PERCENT AUTO 0 % (0-1); LYMPHOCYTES PERCENT AUTO 13 % (21-46); MONOCYTES ABSOLUTE AUTO 0.71 K/mm3 (0.16-1.47); MONOCYTES PERCENT AUTO 7 % (4-13); Mean Corpuscular HGB 31.3 pg (26.0-34.0); Mean Corpuscular HGB Conc 34.2 g/dL (31.5-36.5); Mean Corpuscular Volume 91 fL (80-100); Mean Platelet Volume 10.4 fL (9.1-12.4); NEUTROPHILS ABSOLUTE AUTO 7.84 K/mm3 (1.96-9.15); NEUTROPHILS PERCENT AUTO 77 % (41-73); Platelet Count 280 K/mm3 (150-400); RDW Coefficient Variation 11.7 % (11.7-14.2); Red Blood Cell Count 3.71 M/mm3 (3.80-5.20); White Blood Cell Count 10.24 K/mm3 (4.00-11.30)
[2022-12-03 04:33] LABS: International Normalized Ratio 1.08; Prothrombin Time Results 11.3 Sec (9.7-11.5)
[2022-12-03 04:34] LABS: Bun/Creatinine Ratio 25.9 (12.0-20.0); Calcium, Blood 9.4 mg/dL (8.5-10.1); Creatinine, Blood 0.58 mg/dL (0.40-1.00); Potassium, Blood 3.9 mmol/L (3.5-5.5)
--- NOTE | 2022-12-03 05:55 | NUR ---
SHIFT SUMMARY PT A&OX4, AND COOPERATIVE WITH CARE. PT CONVERTED TO A-FLUTTER @ 0330, NON SYMPTOMATIC. MEDICATING FOR PAIN WITH OXYCODONE. 1-ASSIT UP. VOIDING WITH BSC. CALLS APPROPRIATELY, CALL LIGHT WITHIN REACH. PLAN IS TO START HEPARIN TODAY, AND APPRAISER AUDITOR ON MONDAY.
[2022-12-03 09:56] VITALS: BP 101/74
[2022-12-03 16:39] VITALS: BP 88/60
--- NOTE | 2022-12-03 17:45 | NUR ---
PT HAS BEEN RESTING IN BED T/O THE DAY. REPORTS NECK AND SHOULDER PAIN THAT IS CONTROLLED WITH OXYDODONE. PT HAS REPORTED CP ONCE TODAY WHICH RSOLVED WITHOUT INTERVENTION. VSS. SHE DENIES SOB. UP TO BSC SBA. NADN. A/O X4. SHE IS ABLE TO MAKE NEEDS KNON AND USES CALL LIGHT APPROPRIATELY. PLAN IS FOR ANGIO TOMORROW MORNING, SHE WILL BE NPO AT MIDNIGHT. SHE HAS SIGNED CONSENT FOR ANGIO WITH DR MASON TODAY. HEPARIN CONTINUES TO INFUSE AT THIS TIME WHICH WAS STARTED THIS MORNING.
[2022-12-03 20:12] VITALS: BP 108/73
[2022-12-03 23:19] VITALS: BP 103/62
[2022-12-04 04:33] VITALS: BP 105/74
--- NOTE | 2022-12-04 05:14 | NUR ---
SHIFT SUMMARY PT ALERT AND ORIENTED X 4. HR STABLE. BP STABLE. NO CP OR PRESSURE REPORTED. PT SBA TO BEDSIDE COMMODE NEEDED. REPORTING INCREASE IN LOOSE STOOLS D/T STOOL SOFTENERS. WILL UPDATE ONCOMING RN TO HOLD. OXYGEN SATURATION MAINTAINED ABOVE 92% ON RA. HEPARIN GTT, SEE EMAR FOR SETTINGS. PT NPO SINCE MIDNIGHT, EXCEPT FOR PILLS WITH SIPS OF WATER. CALL LIGHT WITHIN REACH. WILL CONT TO MONITOR UNTIL REPORT GIVEN TO DAYSHIFT RN.
[2022-12-04 07:37] VITALS: BP 139/87
[2022-12-04 09:29] LABS: BASOPHILS ABSOLUTE AUTO 0.05 K/mm3 (0.00-0.23); BASOPHILS PERCENT AUTO 1 % (0-2); EOSINOPHILS PERCENT AUTO 2 % (0-6); Hematocrit 31.9 % (33.0-51.0); Hemoglobin 10.7 g/dL (11.5-16.0); IMMATURE GRAN ABSOLUTE AUTO 0.02 K/mm3 (0.00-0.10); IMMATURE GRAN PERCENT AUTO 0 % (0-1); LYMPHOCYTES ABSOLUTE AUTO 1.16 K/mm3 (0.84-5.20); LYMPHOCYTES PERCENT AUTO 14 % (21-46); MONOCYTES ABSOLUTE AUTO 0.63 K/mm3 (0.16-1.47); MONOCYTES PERCENT AUTO 8 % (4-13); Mean Corpuscular HGB 31.2 pg (26.0-34.0); Mean Corpuscular HGB Conc 33.5 g/dL (31.5-36.5); Mean Corpuscular Volume 93 fL (80-100); Mean Platelet Volume 10.7 fL (9.1-12.4); NEUTROPHILS PERCENT AUTO 75 % (41-73); Platelet Count 245 K/mm3 (150-400); RDW Coefficient Variation 11.9 % (11.7-14.2); RDW Standard Deviation 40.5 fL (35.1-46.3); Red Blood Cell Count 3.43 M/mm3 (3.80-5.20); White Blood Cell Count 8.36 K/mm3 (4.00-11.30)
[2022-12-04 09:35] LABS: Bun/Creatinine Ratio 32.6 (12.0-20.0); Calcium, Blood 8.9 mg/dL (8.5-10.1); Creatinine, Blood 0.68 mg/dL (0.40-1.00); Potassium, Blood 3.8 mmol/L (3.5-5.5)
[2022-12-04 11:30] VITALS: BP 135/100
[2022-12-04 15:00] VITALS: BP 171/106
--- NOTE | 2022-12-04 18:11 | NUR ---
SHIFT SUMMARY; ASSUMED CARE AT 0700, A/A/OX4. ANGIO TODAY WITH RIGHT GROIN SITE. ANGIO SEAL IN PLACE, POST ANGIO RECOVERY PER ORDERS, REMAINED FLAT X4 HOURS. SITE REMAINS SOFT AND NON SWOLLEN. CONTINUED CP, ASSESSED BY DR. MASON, FENTANYL ORDERS PLACED. MEDICATED PER EMAR. CP DECREASES IN EVENING. VSS, WILL CONTINUE TO MONITOR AND TREAT UNTIL CHANGE OF SHIFT.
[2022-12-04 20:09] VITALS: BP 101/89
[2022-12-05] VITALS (21 sets, daily range): BP systolic 84–131; BP diastolic 51–90
--- NOTE | 2022-12-05 00:59 | NUR ---
REPORT GIVEN TO AURELIO DE LA CRUZ TO ASSUME CARE AT THIS TIME.
[2022-12-05 04:17] LABS: BASOPHILS ABSOLUTE AUTO 0.04 K/mm3 (0.00-0.23); BASOPHILS PERCENT AUTO 0 % (0-2); EOSINOPHILS ABSOLUTE AUTO 0.05 K/mm3 (0.00-0.68); EOSINOPHILS PERCENT AUTO 0 % (0-6); Hematocrit 30.9 % (33.0-51.0); Hemoglobin 10.5 g/dL (11.5-16.0); IMMATURE GRAN ABSOLUTE AUTO 0.03 K/mm3 (0.00-0.10); IMMATURE GRAN PERCENT AUTO 0 % (0-1); LYMPHOCYTES ABSOLUTE AUTO 1.18 K/mm3 (0.84-5.20); LYMPHOCYTES PERCENT AUTO 10 % (21-46); MONOCYTES ABSOLUTE AUTO 0.94 K/mm3 (0.16-1.47); MONOCYTES PERCENT AUTO 8 % (4-13); Mean Corpuscular HGB 31.1 pg (26.0-34.0); Mean Corpuscular Volume 91 fL (80-100); Mean Platelet Volume 10.9 fL (9.1-12.4); NEUTROPHILS ABSOLUTE AUTO 9.99 K/mm3 (1.96-9.15); NEUTROPHILS PERCENT AUTO 82 % (41-73); Platelet Count 252 K/mm3 (150-400); RDW Coefficient Variation 11.9 % (11.7-14.2); RDW Standard Deviation 39.7 fL (35.1-46.3); Red Blood Cell Count 3.38 M/mm3 (3.80-5.20); White Blood Cell Count 12.23 K/mm3 (4.00-11.30)
[2022-12-05 04:39] LABS: Calcium, Blood 8.4 mg/dL (8.5-10.1); Creatinine, Blood 0.76 mg/dL (0.40-1.00); Potassium, Blood 3.2 mmol/L (3.5-5.5)
--- NOTE | 2022-12-05 07:33 | NUR ---
TOOK OVER PT FROM PREVIOUS RN @ 005 - IVF BOLUS RUNNING @ 100 ML/HR. SPOKE WITH DR. DOMINGUEZ REGARDING HEART FAILURE HX WITH EF OF 40 PERCENT. PER MD ONLY GIVE 500ML OF 1L BOLUS @ 100ML HOUR. PASSED ON TO DAY SHIFT RN
--- NOTE | 2022-12-05 07:33 | NUR ---
ANGINA AT THE START OF THE SHIFT. PT REPORTING 8/10 MIDSTERNAL ANGINA (SHARP) THAT RADIATES TO HER BACK. SHE WAS PLACED ON 2L NC FOR COMFORT AND GIVEN ONE SL TAB OF NITRO. CHEST PAIN RESOLVED AFTER ONE TAB OF NITRO. BP SOFT.
[2022-12-05] MEDS ORDERED: DOCU100 PO (12:43)
[2022-12-05] MEDS ORDERED: Acetaminophen650 M1 PO (12:43)
[2022-12-05] MEDS ORDERED: PANT20 PO (12:44)
[2022-12-05] MEDS ORDERED: DILT60ER PO (13:52)
--- NOTE | 2022-12-05 15:30 | NUR ---
MORNING SUMMARY PT IS A&OX4, CALLS APPRORIATELY, TX OF SBA W/ FWW, AND HAS BEEN COOPERATIVE WITH CARE. PT HAS TWO SMALL EPISODES OF ANGINA, BUT IS STILL ASKING TO GO HOME. SHE RECIEVED NITRO ONCE. DR. REBOLLEDO TALKED WITH THE PT AND MADE SOME MEDICATION CHANGES, PT STILL ADIMIT ABOUT LEAVING. SHE IS ON RA WITH SP02 >95%. BP IMPROVED AND STABLE. FIRE IGNITION RISK AND SAFETY ASSESSED AND EDUCATION PROVIDED.
--- NOTE | 2022-12-05 16:14 | NUR ---
PT D/C'D AT 1605. BELONGINGS SENT WITH THE PT, MEDICATIONS FAXED THE [facility], D/C INFORMATION WENT OVER WITH SPOUSE/PT. ELIZABETH D/C'D BEFORE D/C
== END 2022-12-05 16:00 | disposition home or self-care (01) | DRG 281 ==
LOC: ER 10:34 → MEDS 17:54 → PCU 12-02 13:08
PROVIDERS: Internal Medicine; Student in an Organized Health Care Education/Training Program; ADMIT Hospitalist
PROC: 4A023N7 Measurement of Cardiac Sampling and Pressure, Left Heart, Percutaneous Approach (ICD-10-PCS; principal; 2022-12-04)
PROC: B2111ZZ Fluoroscopy of Multiple Coronary Arteries using Low Osmolar Contrast (ICD-10-PCS; 2022-12-04)
DX: I51.81 Takotsubo syndrome (principal); I21.A1 Myocardial infarction type 2; D68.59 Other primary thrombophilia; E87.1 Hypo-osmolality and hyponatremia; I48.20 Chronic atrial fibrillation, unspecified; M50.30 Other cervical disc degeneration, unspecified cervical region; E83.42 Hypomagnesemia; J44.9 Chronic obstructive pulmonary disease, unspecified; E03.9 Hypothyroidism, unspecified; M19.90 Unspecified osteoarthritis, unspecified site; E87.6 Hypokalemia; I73.00 Raynaud's syndrome without gangrene; F32.A Depression, unspecified; I10 Essential (primary) hypertension; G89.29 Other chronic pain; E78.5 Hyperlipidemia, unspecified; I25.111 Atherosclerotic heart disease of native coronary artery with angina pectoris with documented spasm; I48.0 Paroxysmal atrial fibrillation; D64.9 Anemia, unspecified; K21.9 Gastro-esophageal reflux disease without esophagitis; E66.9 Obesity, unspecified; I25.5 Ischemic cardiomyopathy; E11.42 Type 2 diabetes mellitus with diabetic polyneuropathy; I25.2 Old myocardial infarction; Z95.5 Presence of coronary angioplasty implant and graft; Z85.118 Personal history of other malignant neoplasm of bronchus and lung; Z90.710 Acquired absence of both cervix and uterus; Z88.0 Allergy status to penicillin; Z88.6 Allergy status to analgesic agent; Z88.5 Allergy status to narcotic agent; Z88.8 Allergy status to other drugs, medicaments and biological substances; Z79.899 Other long term (current) drug therapy; Z79.890 Hormone replacement therapy; Z79.2 Long term (current) use of antibiotics; Z98.890 Other specified postprocedural states; Z90.722 Acquired absence of ovaries, bilateral; Z90.89 Acquired absence of other organs; Z98.891 History of uterine scar from previous surgery; Z90.49 Acquired absence of other specified parts of digestive tract; Z98.1 Arthrodesis status; Z87.891 Personal history of nicotine dependence; Z90.2 Acquired absence of lung [part of]; Z79.01 Long term (current) use of anticoagulants; Z68.28 Body mass index [BMI] 28.0-28.9, adult; Z87.19 Personal history of other diseases of the digestive system; Z87.440 Personal history of urinary (tract) infections
CPT/HCPCS: 36415; 51798; 71045; 76937; 80048; 80053; 80069; 80162; 82947; 83036; 83605; 83735; 84132; 84439; 84443; 84481; 84484; 85025; 85027; 85610; 85730; 87040; 93005; 93010; 93306; 93458; 94640; 94664; 94760; 94762; 96365; 96366; 96368; 96375; 96376; 97110; 97162; 97530; 99152; 99153; 99285-25; A9270; C1760; C1769; C1894; C9113; J0692; J1170; J1200; J1644; J1720; J1815; J1940; J2250; J2405; J2765; J3010; J3475; J3480; J7030; J7050; P9612; Q9967

== ENCOUNTER → 2023-01-23 | Outpatient (CLI) | payer MEDICARE ==
[~2023-01-23] MED LIST changes: +Acetaminophen650 M1 PO; +BACL10 PO; +DILT60ER PO; +DOCU100 PO; +GABA100 PO; +METO25ER PO; +OXAYDO5 M6 PO; +SKYRIZI150 MG/1 M SC
== END | disposition home or self-care (01) ==
LOC: LAB SHORT 14:47 → PLD 14:47
DX: D48.5 Neoplasm of uncertain behavior of skin (principal)
CPT/HCPCS: 88305

== ENCOUNTER 2023-09-16 14:08 | Emergency (ER) | payer MEDICARE ==
[~2023-09-16] VITALS: Ht 167.6 cm; Wt 81.7 kg
[2023-09-16 14:35] LABS: BASOPHILS ABSOLUTE AUTO 0.05 K/mm3 (0.00-0.23); BASOPHILS PERCENT AUTO 0 % (0-2); EOSINOPHILS ABSOLUTE AUTO 0.05 K/mm3 (0.00-0.68); EOSINOPHILS PERCENT AUTO 0 % (0-6); Hematocrit 43.5 % (33.0-51.0); Hemoglobin 15.2 g/dL (11.5-16.0); IMMATURE GRAN ABSOLUTE AUTO 0.04 K/mm3 (0.00-0.10); IMMATURE GRAN PERCENT AUTO 0 % (0-1); LYMPHOCYTES ABSOLUTE AUTO 0.99 K/mm3 (0.84-5.20); LYMPHOCYTES PERCENT AUTO 8 % (21-46); MONOCYTES ABSOLUTE AUTO 0.66 K/mm3 (0.16-1.47); MONOCYTES PERCENT AUTO 5 % (4-13); Mean Corpuscular HGB 32.4 pg (26.0-34.0); Mean Corpuscular HGB Conc 34.9 g/dL (31.5-36.5); Mean Corpuscular Volume 93 fL (80-100); NEUTROPHILS ABSOLUTE AUTO 11.12 K/mm3 (1.96-9.15); NEUTROPHILS PERCENT AUTO 86 % (41-73); Platelet Count 254 K/mm3 (150-400); RDW Coefficient Variation 12.3 % (11.7-14.2); RDW Standard Deviation 41.7 fL (35.1-46.3); Red Blood Cell Count 4.69 M/mm3 (3.80-5.20); White Blood Cell Count 12.91 K/mm3 (4.00-11.30)
[2023-09-16] MEDS ORDERED: NS 1,000 ML IV SCH (14:35)
[2023-09-16 14:55] LABS: Albumin, Blood 3.8 g/dL (3.4-5.0); Bilirubin, Total 0.8 mg/dL (0.1-1.0); Bun/Creatinine Ratio 33.5 (12.0-20.0); Calcium, Blood 9.4 mg/dL (8.5-10.1); Creatinine, Blood 0.81 mg/dL (0.40-1.00); Globulin, Blood 3.8 g/dL (2.2-4.0); Potassium, Blood 3.6 mmol/L (3.5-5.5); Total Protein, Blood 7.6 g/dL (6.4-8.2)
[2023-09-16 14:58] LABS: Source, Urine Straight Cath
[2023-09-16 15:08] LABS: Appearance, Urine Clear (Clear); Bilirubin, Urine Neg (Neg); Blood, Urine 1+ (Neg); Color, Urine Yellow (P-Yellow); Glucose Qualitative, Urine 1+ (Neg); Ketones, Urine 3+ (Neg); Leukocyte Esterase, Urine Neg (Neg); Nitrite, Urine Neg (Neg); Protein, Urine 3+ (Neg); Urobilinogen, Urine NORM (Normal)
[2023-09-16 15:10] LABS: Thyroid Stimulating Hormone 1.67 uIU/mL (0.360-4.800)
[2023-09-16 15:19] LABS: Bacteria Many /hpf; Squamous Epithelial Cells Few /hpf (Few)
[2023-09-16 15:20] LABS: Mucus Light (0-Heavy)
[2023-09-16 15:20] LABS: Magnesium, Blood 1.3 mg/dL (1.6-2.4)
[2023-09-16 15:30] VITALS: BP 140/93
[2023-09-16 15:37] LABS: Influenza A, PCR NEGATIVE (NEGATIVE); Influenza B, PCR NEGATIVE (NEGATIVE); Resp Syncytial Virus, PCR NEGATIVE (NEGATIVE); SARS-Cov-2 (COVID-19) PCR, MMC NEGATIVE (NEGATIVE)
[2023-09-16] MEDS ORDERED: Baclofen 10 MG Tab PO ONE (17:15)
[2023-09-16] MEDS ORDERED: HYDROcodone 5-APAP 325 TAB PO ONE (17:20)
[2023-09-16] MEDS ORDERED: dilTIAZem HCL 120 MG CAP.CD PO ONE (18:15)
[2023-09-16] MEDS ORDERED: Cardizem CD 12120 MG PO (18:22)
== END 2023-09-16 18:44 | disposition home or self-care (01) ==
LOC: ER 14:08
PROVIDERS: Emergency Medicine; Student in an Organized Health Care Education/Training Program
DX: I48.91 Unspecified atrial fibrillation (principal); Z88.0 Allergy status to penicillin; Z88.6 Allergy status to analgesic agent; Z88.5 Allergy status to narcotic agent; Z79.899 Other long term (current) drug therapy; Z91.048 Other nonmedicinal substance allergy status; I25.10 Atherosclerotic heart disease of native coronary artery without angina pectoris; J44.9 Chronic obstructive pulmonary disease, unspecified; E03.9 Hypothyroidism, unspecified; I10 Essential (primary) hypertension; E78.5 Hyperlipidemia, unspecified
CPT/HCPCS: 0241U; 51701; 71045; 80053; 81001; 83735; 83880; 84443; 84484; 85025; 87086; 93005; 93010; 96360-59; 99285-25; A9270; J7030

== ENCOUNTER 2023-10-08 14:31 | Emergency (ER) | payer MEDICARE ==
[~2023-10-08] VITALS: Ht 152.4 cm; Wt 63.5 kg
[~2023-10-08 14:31] MED LIST changes: +Cardizem CD 12120 MG PO
[2023-10-08 15:20] LABS: BASOPHILS ABSOLUTE AUTO 0.03 K/mm3 (0.00-0.23); BASOPHILS PERCENT AUTO 0 % (0-2); EOSINOPHILS ABSOLUTE AUTO 0.01 K/mm3 (0.00-0.68); EOSINOPHILS PERCENT AUTO 0 % (0-6); Hematocrit 39.2 % (33.0-51.0); Hemoglobin 13.6 g/dL (11.5-16.0); IMMATURE GRAN ABSOLUTE AUTO 0.03 K/mm3 (0.00-0.10); IMMATURE GRAN PERCENT AUTO 0 % (0-1); LYMPHOCYTES ABSOLUTE AUTO 0.55 K/mm3 (0.84-5.20); LYMPHOCYTES PERCENT AUTO 6 % (21-46); MONOCYTES ABSOLUTE AUTO 0.77 K/mm3 (0.16-1.47); MONOCYTES PERCENT AUTO 8 % (4-13); Mean Corpuscular HGB 31.7 pg (26.0-34.0); Mean Corpuscular HGB Conc 34.7 g/dL (31.5-36.5); Mean Corpuscular Volume 91 fL (80-100); Mean Platelet Volume 9.9 fL (9.1-12.4); NEUTROPHILS ABSOLUTE AUTO 8.63 K/mm3 (1.96-9.15); NEUTROPHILS PERCENT AUTO 86 % (41-73); Platelet Count 223 K/mm3 (150-400); RDW Coefficient Variation 12.3 % (11.7-14.2); RDW Standard Deviation 41.2 fL (35.1-46.3); Red Blood Cell Count 4.29 M/mm3 (3.80-5.20); White Blood Cell Count 10.02 K/mm3 (4.00-11.30)
[2023-10-08 15:40] LABS: Albumin, Blood 3.3 g/dL (3.4-5.0); Albumin/Globulin Ratio 0.9 (0.8-1.8); Bilirubin, Total 0.7 mg/dL (0.1-1.0); Bun/Creatinine Ratio 21.6 (12.0-20.0); Calcium, Blood 8.3 mg/dL (8.5-10.1); Creatinine, Blood 0.74 mg/dL (0.40-1.00); Globulin, Blood 3.8 g/dL (2.2-4.0); Potassium, Blood 2.8 mmol/L (3.5-5.5); Total Protein, Blood 7.1 g/dL (6.4-8.2)
[2023-10-08] MEDS ORDERED: Magnesium Sulf 2 GM/Water 50ML 50 ML IV ONE (15:45)
[2023-10-08] MEDS ORDERED: Potassium Chloride 20 MEQ TabCR PO ONE (15:45)
[2023-10-08] MEDS ORDERED: Potassium Chl 20MEQ/Water100ML 100 ML IV ONE (15:45)
[2023-10-08] MEDS ORDERED: Metoclopramide HCl 5MG / ML 2ML Vial IV ONE (15:55)
[2023-10-08] MEDS ORDERED: NS 1,000 ML IV SCH (16:05)
[2023-10-08 16:07] LABS: Influenza A, PCR NEGATIVE (NEGATIVE); Influenza B, PCR NEGATIVE (NEGATIVE); Resp Syncytial Virus, PCR NEGATIVE (NEGATIVE); SARS-Cov-2 (COVID-19) PCR, MMC NEGATIVE (NEGATIVE)
[2023-10-08] MEDS ORDERED: K-Dur20 MEQ PO (16:48)
[2023-10-08] MEDS ORDERED: METO10 PO (16:48)
[2023-10-08 18:32] VITALS: BP 129/83
== END 2023-10-08 18:34 | disposition home or self-care (01) ==
LOC: ER 14:31
PROVIDERS: Emergency Medicine
DX: E83.42 Hypomagnesemia (principal); E87.6 Hypokalemia; I48.91 Unspecified atrial fibrillation; R11.0 Nausea; J44.9 Chronic obstructive pulmonary disease, unspecified; E03.9 Hypothyroidism, unspecified; I10 Essential (primary) hypertension; E78.5 Hyperlipidemia, unspecified; Z88.0 Allergy status to penicillin; Z88.6 Allergy status to analgesic agent; Z88.8 Allergy status to other drugs, medicaments and biological substances; Z91.048 Other nonmedicinal substance allergy status; Z79.899 Other long term (current) drug therapy
CPT/HCPCS: 0241U; 71045; 80053; 83690; 83735; 83880; 84484; 85025; 93005; 93010; 96365; 96367; 99285-25; A9270; J2765; J3475; J3480; J7030

== ENCOUNTER 2023-10-13 09:21 | Emergency (ER) | payer MEDICARE ==
[~2023-10-13] VITALS: Ht 152.4 cm; Wt 63.5 kg
[~2023-10-13 09:21] MED LIST changes: +K-Dur20 MEQ PO; +METO10 PO
[2023-10-13 09:59] LABS: BASOPHILS ABSOLUTE AUTO 0.06 K/mm3 (0.00-0.23); BASOPHILS PERCENT AUTO 1 % (0-2); EOSINOPHILS ABSOLUTE AUTO 0.11 K/mm3 (0.00-0.68); EOSINOPHILS PERCENT AUTO 1 % (0-6); Hematocrit 42.7 % (33.0-51.0); Hemoglobin 14.9 g/dL (11.5-16.0); IMMATURE GRAN ABSOLUTE AUTO 0.04 K/mm3 (0.00-0.10); IMMATURE GRAN PERCENT AUTO 0 % (0-1); LYMPHOCYTES ABSOLUTE AUTO 0.95 K/mm3 (0.84-5.20); LYMPHOCYTES PERCENT AUTO 10 % (21-46); MONOCYTES ABSOLUTE AUTO 0.78 K/mm3 (0.16-1.47); MONOCYTES PERCENT AUTO 8 % (4-13); Mean Corpuscular HGB 31.3 pg (26.0-34.0); Mean Corpuscular HGB Conc 34.9 g/dL (31.5-36.5); Mean Corpuscular Volume 90 fL (80-100); Mean Platelet Volume 9.6 fL (9.1-12.4); NEUTROPHILS ABSOLUTE AUTO 8.08 K/mm3 (1.96-9.15); NEUTROPHILS PERCENT AUTO 81 % (41-73); Platelet Count 281 K/mm3 (150-400); RDW Coefficient Variation 11.9 % (11.7-14.2); RDW Standard Deviation 38.8 fL (35.1-46.3); Red Blood Cell Count 4.76 M/mm3 (3.80-5.20); White Blood Cell Count 10.02 K/mm3 (4.00-11.30)
[2023-10-13 10:23] LABS: Albumin, Blood 3.8 g/dL (3.4-5.0); Albumin/Globulin Ratio 0.9 (0.8-1.8); Bilirubin, Total 0.8 mg/dL (0.1-1.0); Bun/Creatinine Ratio 23.4 (12.0-20.0); Calcium, Blood 9.5 mg/dL (8.5-10.1); Creatinine, Blood 0.73 mg/dL (0.40-1.00); Globulin, Blood 4.4 g/dL (2.2-4.0); Potassium, Blood 2.9 mmol/L (3.5-5.5); Total Protein, Blood 8.2 g/dL (6.4-8.2)
[2023-10-13 11:20] LABS: Free Thyroxine 1.42 ng/dL (0.70-1.60)
[2023-10-13] MEDS ORDERED: Ondansetron HCl 2 MG / ML 2ML Vial IV ONE (11:45)
[2023-10-13] MEDS ORDERED: Potassium Chl 20MEQ/Water100ML 100 ML IV ONE (11:55)
[2023-10-13] MEDS ORDERED: Magnesium Sulf 2 GM/Water 50ML 50 ML IV ONE (11:55)
[2023-10-13] MEDS ORDERED: NS 1,000 ML IV ONE (12:15)
[2023-10-13 12:29] LABS: Source, Urine Voided
[2023-10-13 12:34] LABS: Appearance, Urine Cloudy (Clear); Blood, Urine 2+ (Neg); Color, Urine Yellow (P-Yellow); Glucose Qualitative, Urine Neg (Neg); Ketones, Urine 2+ (Neg); Leukocyte Esterase, Urine 3+ (Neg); Nitrite, Urine Neg (Neg); Protein, Urine 3+ (Neg); Specific Gravity, Urine 1.015 (1.003-1.022); Urobilinogen, Urine NORM (Normal)
[2023-10-13 12:41] LABS: Bilirubin, Urine 1+ (Neg)
[2023-10-13 12:42] LABS: White Blood Cells, Urine TNTC /hpf (0-5)
[2023-10-13 12:43] LABS: Bacteria Many /hpf; Squamous Epithelial Cells Few /hpf (Few)
[2023-10-13] MEDS ORDERED: POTA20LUD PO (15:29)
[2023-10-13] MEDS ORDERED: Macrobid 100 M100 MG PO (15:29)
[2023-10-13 16:02] VITALS: BP 131/85
== END 2023-10-13 16:03 | disposition home or self-care (01) ==
LOC: ER 09:21
PROVIDERS: Emergency Medicine
DX: I48.91 Unspecified atrial fibrillation (principal); E87.6 Hypokalemia; E83.42 Hypomagnesemia; N39.0 Urinary tract infection, site not specified; J44.9 Chronic obstructive pulmonary disease, unspecified; E03.9 Hypothyroidism, unspecified; I10 Essential (primary) hypertension; E78.5 Hyperlipidemia, unspecified; Z87.891 Personal history of nicotine dependence; Z79.899 Other long term (current) drug therapy; Z79.51 Long term (current) use of inhaled steroids; Z88.0 Allergy status to penicillin; Z88.6 Allergy status to analgesic agent; Z88.1 Allergy status to other antibiotic agents; Z88.5 Allergy status to narcotic agent; Z88.8 Allergy status to other drugs, medicaments and biological substances; Z91.048 Other nonmedicinal substance allergy status
CPT/HCPCS: 71045; 80053; 81001; 83735; 84439; 84443; 84481; 84484; 85025; J2405; J3475; J3480; J7030

== ENCOUNTER 2023-10-17 15:27 | Emergency (ER) | payer MEDICARE ==
[~2023-10-17] VITALS: Ht 152.4 cm; Wt 63.5 kg
[~2023-10-17 15:27] MED LIST changes: +Macrobid 100 M100 MG PO; +POTA20LUD PO
[2023-10-17 17:51] LABS: BASOPHILS ABSOLUTE AUTO 0.03 K/mm3 (0.00-0.23); BASOPHILS PERCENT AUTO 0 % (0-2); EOSINOPHILS ABSOLUTE AUTO 0.02 K/mm3 (0.00-0.68); EOSINOPHILS PERCENT AUTO 0 % (0-6); Hematocrit 39.5 % (33.0-51.0); Hemoglobin 13.7 g/dL (11.5-16.0); IMMATURE GRAN ABSOLUTE AUTO 0.03 K/mm3 (0.00-0.10); IMMATURE GRAN PERCENT AUTO 0 % (0-1); LYMPHOCYTES ABSOLUTE AUTO 0.58 K/mm3 (0.84-5.20); LYMPHOCYTES PERCENT AUTO 7 % (21-46); MONOCYTES ABSOLUTE AUTO 0.89 K/mm3 (0.16-1.47); MONOCYTES PERCENT AUTO 10 % (4-13); Mean Corpuscular HGB 31.8 pg (26.0-34.0); Mean Corpuscular HGB Conc 34.7 g/dL (31.5-36.5); Mean Corpuscular Volume 92 fL (80-100); Mean Platelet Volume 9.5 fL (9.1-12.4); NEUTROPHILS ABSOLUTE AUTO 7.41 K/mm3 (1.96-9.15); NEUTROPHILS PERCENT AUTO 83 % (41-73); Platelet Count 291 K/mm3 (150-400); RDW Coefficient Variation 11.9 % (11.7-14.2); RDW Standard Deviation 40.4 fL (35.1-46.3); Red Blood Cell Count 4.31 M/mm3 (3.80-5.20); White Blood Cell Count 8.96 K/mm3 (4.00-11.30)
[2023-10-17 18:16] LABS: Albumin, Blood 3.5 g/dL (3.4-5.0); Albumin/Globulin Ratio 0.9 (0.8-1.8); Bilirubin, Total 0.5 mg/dL (0.1-1.0); Creatinine, Blood 0.71 mg/dL (0.40-1.00); Globulin, Blood 4.1 g/dL (2.2-4.0); Potassium, Blood 3.5 mmol/L (3.5-5.5); Total Protein, Blood 7.6 g/dL (6.4-8.2)
[2023-10-17] MEDS ORDERED: AMLODIPINE BESY10 MG PO (18:29)
[2023-10-17] MEDS ORDERED: POTA20LUD (18:29)
[2023-10-17] MEDS ORDERED: DILTIAZEM 24HR120 M4 PO (18:29)
[2023-10-17] MEDS ORDERED: LEVSOD75 (18:30)
[2023-10-17] MEDS ORDERED: Ondansetron HCl 2 MG / ML 2ML Vial IV ONE ×2 (18:45→23:25)
[2023-10-17] MEDS ORDERED: Lactated Ringer's 1,000 ML IV ONE (18:50)
[2023-10-17] MEDS ORDERED: Potassium Chloride 40 MEQ in NS 250 ML IV ONE (19:40)
[2023-10-17] MEDS ORDERED: Magnesium Oxide 400 MG Tab PO ONE (21:50)
[2023-10-18] MEDS ORDERED: Magnesium Oxide 400 MG Tab PO ONE (00:25)
[2023-10-18 01:00] VITALS: BP 150/95
== END 2023-10-18 01:28 | disposition home or self-care (01) ==
LOC: ER 15:27
PROVIDERS: Physician Assistant
DX: E87.6 Hypokalemia (principal); I48.91 Unspecified atrial fibrillation; I25.10 Atherosclerotic heart disease of native coronary artery without angina pectoris; J44.9 Chronic obstructive pulmonary disease, unspecified; E03.9 Hypothyroidism, unspecified; I10 Essential (primary) hypertension; E78.5 Hyperlipidemia, unspecified; Z88.0 Allergy status to penicillin; Z88.8 Allergy status to other drugs, medicaments and biological substances; Z88.5 Allergy status to narcotic agent; Z88.6 Allergy status to analgesic agent; Z91.09 Other allergy status, other than to drugs and biological substances; Z79.52 Long term (current) use of systemic steroids; Z79.02 Long term (current) use of antithrombotics/antiplatelets; Z79.899 Other long term (current) drug therapy; Z79.890 Hormone replacement therapy; Z87.891 Personal history of nicotine dependence
CPT/HCPCS: 80053; 83735; 85025; 93005; 93010; 96361; 96365; 96366; 96375; 96376; 99285-25; A9270; J2405; J3480; J7050; J7120

== ENCOUNTER 2023-10-25 17:28 | Emergency (ER) | payer MEDICARE ==
[~2023-10-25] VITALS: Ht 152.4 cm; Wt 63.5 kg
[~2023-10-25 17:28] MED LIST changes: +AMLODIPINE BESY10 MG PO; +DILTIAZEM 24HR120 M4 PO; +LEVSOD75; +POTA20LUD
[2023-10-25] MEDS ORDERED: NS 1,000 ML IV SCH (17:45)
[2023-10-25 17:52] LABS: BASOPHILS ABSOLUTE AUTO 0.06 K/mm3 (0.00-0.23); BASOPHILS PERCENT AUTO 1 % (0-2); EOSINOPHILS ABSOLUTE AUTO 0.02 K/mm3 (0.00-0.68); EOSINOPHILS PERCENT AUTO 0 % (0-6); Hematocrit 43.3 % (33.0-51.0); Hemoglobin 15.2 g/dL (11.5-16.0); IMMATURE GRAN ABSOLUTE AUTO 0.03 K/mm3 (0.00-0.10); IMMATURE GRAN PERCENT AUTO 0 % (0-1); LYMPHOCYTES ABSOLUTE AUTO 0.94 K/mm3 (0.84-5.20); LYMPHOCYTES PERCENT AUTO 9 % (21-46); MONOCYTES ABSOLUTE AUTO 0.92 K/mm3 (0.16-1.47); MONOCYTES PERCENT AUTO 9 % (4-13); Mean Corpuscular HGB 31.3 pg (26.0-34.0); Mean Corpuscular HGB Conc 35.1 g/dL (31.5-36.5); Mean Corpuscular Volume 89 fL (80-100); Mean Platelet Volume 9.7 fL (9.1-12.4); NEUTROPHILS ABSOLUTE AUTO 8.33 K/mm3 (1.96-9.15); NEUTROPHILS PERCENT AUTO 81 % (41-73); Platelet Count 336 K/mm3 (150-400); RDW Coefficient Variation 11.9 % (11.7-14.2); RDW Standard Deviation 38.5 fL (35.1-46.3); Red Blood Cell Count 4.85 M/mm3 (3.80-5.20)
[2023-10-25 18:21] LABS: Magnesium, Blood 1.4 mg/dL (1.6-2.4)
[2023-10-25 18:30] LABS: Albumin, Blood 3.8 g/dL (3.4-5.0); Albumin/Globulin Ratio 0.9 (0.8-1.8); Bilirubin, Total 1.1 mg/dL (0.1-1.0); Bun/Creatinine Ratio 19.1 (12.0-20.0); Calcium, Blood 9.6 mg/dL (8.5-10.1); Creatinine, Blood 0.79 mg/dL (0.40-1.00); Globulin, Blood 4.2 g/dL (2.2-4.0); Phosphorus, Blood 3.1 mg/dL (2.5-4.9); Thyroid Stimulating Hormone 11.2 uIU/mL (0.360-4.800)
[2023-10-25 18:33] LABS: Source, Urine Clean Catch
[2023-10-25 18:43] LABS: Influenza A, PCR NEGATIVE (NEGATIVE); Influenza B, PCR NEGATIVE (NEGATIVE); Resp Syncytial Virus, PCR NEGATIVE (NEGATIVE); SARS-Cov-2 (COVID-19) PCR, MMC NEGATIVE (NEGATIVE)
[2023-10-25 19:03] LABS: Bilirubin, Urine Neg (Neg); Blood, Urine Neg (Neg); Color, Urine Amber (P-Yellow); Glucose Qualitative, Urine Neg (Neg); Ketones, Urine 1+ (Neg); Leukocyte Esterase, Urine 1+ (Neg); Nitrite, Urine Neg (Neg); Protein, Urine 3+ (Neg); Urobilinogen, Urine 1+ (Normal)
[2023-10-25] MEDS ORDERED: Magnesium Sulf 2 GM/Water 50ML 50 ML IV ONE (19:10)
[2023-10-25] MEDS ORDERED: Potassium Chl 20MEQ/Water100ML 100 ML IV SCH (19:10)
[2023-10-25 19:19] LABS: Appearance, Urine Hazy (Clear)
[2023-10-25 19:21] LABS: Red Blood Cells, Urine 0-2 /hpf (0-2); Squamous Epithelial Cells Rare /hpf (Few)
[2023-10-25 19:22] LABS: Amorphous Light (0-Heavy); Bacteria Many /hpf; Mucus Light (0-Heavy); Transitional Epithelial Cells Rare /hpf (0-Rare)
[2023-10-25] MEDS ORDERED: Lactated Ringer's 1,000 ML IV SCH (19:55)
[2023-10-25] MEDS ORDERED: Ondansetron HCl 2 MG / ML 2ML Vial IV ONE (19:55)
[2023-10-25] MEDS ORDERED: CEPH500 PO (20:34)
[2023-10-25] MEDS ORDERED: Cephalexin Monohydrate 500 MG Cap PO ONE (20:35)
[2023-10-25 23:45] VITALS: BP 122/88
== END 2023-10-26 | disposition home or self-care (01) ==
LOC: ER 17:28
PROVIDERS: Emergency Medicine
DX: N39.0 Urinary tract infection, site not specified (principal); J44.9 Chronic obstructive pulmonary disease, unspecified; E03.9 Hypothyroidism, unspecified; I48.91 Unspecified atrial fibrillation; I10 Essential (primary) hypertension; E78.5 Hyperlipidemia, unspecified; Z87.891 Personal history of nicotine dependence; Z79.51 Long term (current) use of inhaled steroids; Z79.899 Other long term (current) drug therapy; Z88.0 Allergy status to penicillin; Z88.6 Allergy status to analgesic agent; Z91.041 Radiographic dye allergy status; Z88.1 Allergy status to other antibiotic agents; Z88.5 Allergy status to narcotic agent; Z91.048 Other nonmedicinal substance allergy status
CPT/HCPCS: 0241U; 36415; 51701; 71046; 74176; 80053; 81001; 83605; 83735; 84100; 84443; 84484; 85025; 85730; 87040; 87086; 93005; 93010; 96361; 96365; 96366; 96368; 96375; 99285-25; A9270; J2405; J3475; J3480; J7030; J7120

== ENCOUNTER 2023-11-18 08:35 | Inpatient (IN) | payer MEDICARE ==
[~2023-11-18] VITALS: Ht 165.1 cm; Wt 61.7 kg
[2023-11-18 09:34] LABS: BASOPHILS ABSOLUTE AUTO 0.07 K/mm3 (0.00-0.23); BASOPHILS PERCENT AUTO 1 % (0-2); EOSINOPHILS ABSOLUTE AUTO 0.12 K/mm3 (0.00-0.68); EOSINOPHILS PERCENT AUTO 2 % (0-6); IMMATURE GRAN ABSOLUTE AUTO 0.02 K/mm3 (0.00-0.10); IMMATURE GRAN PERCENT AUTO 0 % (0-1); LYMPHOCYTES ABSOLUTE AUTO 1.48 K/mm3 (0.84-5.20); LYMPHOCYTES PERCENT AUTO 19 % (21-46); MONOCYTES ABSOLUTE AUTO 0.78 K/mm3 (0.16-1.47); MONOCYTES PERCENT AUTO 10 % (4-13); Mean Corpuscular HGB 30.8 pg (26.0-34.0); Mean Corpuscular HGB Conc 33.3 g/dL (31.5-36.5); Mean Corpuscular Volume 92 fL (80-100); Mean Platelet Volume 9.9 fL (9.1-12.4); NEUTROPHILS ABSOLUTE AUTO 5.36 K/mm3 (1.96-9.15); NEUTROPHILS PERCENT AUTO 68 % (41-73); Platelet Count 282 K/mm3 (150-400); RDW Coefficient Variation 12.4 % (11.7-14.2); RDW Standard Deviation 42.5 fL (35.1-46.3); Red Blood Cell Count 4.55 M/mm3 (3.80-5.20); White Blood Cell Count 7.83 K/mm3 (4.00-11.30)
[2023-11-18 09:53] LABS: Albumin, Blood 3.9 g/dL (3.4-5.0); Bilirubin, Total 1.2 mg/dL (0.1-1.0); Bun/Creatinine Ratio 26.1 (12.0-20.0); Calcium, Blood 9.3 mg/dL (8.5-10.1); Creatinine, Blood 1.38 mg/dL (0.40-1.00); Globulin, Blood 3.8 g/dL (2.2-4.0); Potassium, Blood 4.2 mmol/L (3.5-5.5); Total Protein, Blood 7.7 g/dL (6.4-8.2)
[2023-11-18] MEDS ORDERED: NS 1,000 ML IV SCH ×2 (10:15→13:10)
[2023-11-18 11:01] LABS: Influenza A, PCR NEGATIVE (NEGATIVE); Influenza B, PCR NEGATIVE (NEGATIVE); Resp Syncytial Virus, PCR NEGATIVE (NEGATIVE); SARS-Cov-2 (COVID-19) PCR, MMC NEGATIVE (NEGATIVE)
[2023-11-18] MEDS ORDERED: Acetaminophen 325 MG TABLET PO PRN (13:10)
[2023-11-18] MEDS ORDERED: Ondansetron HCl 2 MG / ML 2ML Vial IV PRN (13:10)
[2023-11-18] MEDS ORDERED: Baclofen 10 MG Tab PO PRN (13:10)
[2023-11-18] MEDS ORDERED: Calcium Carbonate 500 MG Tab Chew PO PRN (13:20)
[2023-11-18] MEDS ORDERED: OxyCODONE HCL 5 MG TAB PO PRN (13:20)
[2023-11-18] MEDS ORDERED: Mag Sulfate 1 GM/D5% 100ML 100 ML IV STA (13:34)
[2023-11-18] MEDS ORDERED: Nitroglycerin 0.4 MG SUBL SL PRN (13:55)
[2023-11-18] MEDS ORDERED: Mometasone/Formoterol MDI 200/5 mcg 13 GM INH SCH (14:00)
[2023-11-18 16:07] VITALS: BP 128/86
[2023-11-18] MEDS ORDERED: Midodrine 5 MG Tab PO SCH (18:00)
--- NOTE | 2023-11-18 18:39 | NUR ---
PT ARRIVED TO ROOM AT 1540 AOX4 AND COOPERATIVE OF CARE. PT WAS ABLE TO AMBULATE TO RESTROOM WITH WALKER. PT DID REQUEST A BEDSIDE COMMODE. PT REPORTED NAUSEA AND WAS TREATED PER EMAR. CALL LIGHT WITHIN REACH WILL CONTINUE TO MONITOR.
[2023-11-18 19:32] VITALS: BP 130/77
[2023-11-18] MEDS ORDERED: Rivaroxaban 10 MG Tab PO SCH (21:00)
[2023-11-18] MEDS ORDERED: Atorvastatin 40 MG Tab PO SCH (21:00)
[2023-11-18] MEDS ORDERED: Sennosides 8.6 MG Tab PO SCH (21:00)
[2023-11-18] MEDS ORDERED: MIDO5 PO (21:43)
[2023-11-19 02:32] VITALS: BP 162/94
[2023-11-19 05:16] LABS: BASOPHILS ABSOLUTE AUTO 0.06 K/mm3 (0.00-0.23); BASOPHILS PERCENT AUTO 1 % (0-2); EOSINOPHILS ABSOLUTE AUTO 0.12 K/mm3 (0.00-0.68); EOSINOPHILS PERCENT AUTO 2 % (0-6); Hematocrit 32.8 % (33.0-51.0); Hemoglobin 10.9 g/dL (11.5-16.0); IMMATURE GRAN ABSOLUTE AUTO 0.02 K/mm3 (0.00-0.10); IMMATURE GRAN PERCENT AUTO 0 % (0-1); LYMPHOCYTES ABSOLUTE AUTO 1.17 K/mm3 (0.84-5.20); LYMPHOCYTES PERCENT AUTO 19 % (21-46); MONOCYTES ABSOLUTE AUTO 0.56 K/mm3 (0.16-1.47); MONOCYTES PERCENT AUTO 9 % (4-13); Mean Corpuscular HGB 31.2 pg (26.0-34.0); Mean Corpuscular HGB Conc 33.2 g/dL (31.5-36.5); Mean Corpuscular Volume 94 fL (80-100); Mean Platelet Volume 9.8 fL (9.1-12.4); NEUTROPHILS ABSOLUTE AUTO 4.11 K/mm3 (1.96-9.15); NEUTROPHILS PERCENT AUTO 68 % (41-73); Platelet Count 193 K/mm3 (150-400); RDW Coefficient Variation 12.3 % (11.7-14.2); RDW Standard Deviation 42.5 fL (35.1-46.3); Red Blood Cell Count 3.49 M/mm3 (3.80-5.20); White Blood Cell Count 6.04 K/mm3 (4.00-11.30)
[2023-11-19 05:40] LABS: Albumin, Blood 3.5 g/dL (3.4-5.0); Albumin/Globulin Ratio 1.1 (0.8-1.8); Bun/Creatinine Ratio 26.4 (12.0-20.0); Calcium, Blood 8.4 mg/dL (8.5-10.1); Creatinine, Blood 0.91 mg/dL (0.40-1.00); Globulin, Blood 3.3 g/dL (2.2-4.0); Potassium, Blood 3.4 mmol/L (3.5-5.5); Total Protein, Blood 6.8 g/dL (6.4-8.2)
[2023-11-19] MEDS ORDERED: Pantoprazole Sodium 40 MG Tab PO SCH (06:00)
[2023-11-19] MEDS ORDERED: Levothyroxine Sodium 0.075 MG Tab PO SCH (06:00)
--- NOTE | 2023-11-19 06:00 | NUR ---
SHIFT SUMMARY PT HAS RESTED T/O THE NIGHT. MINIMAL CHEST PAIN THIS SHIFT, PT REPORTS THAT SHE DID HAVE SOME AROUND MIDNIGHT THAT RESOLVED. PT DOES NOT REPORT N/V. SKIN IS WARM AND DRY. RESP E/U ON RA, AND SATS WNL. NO ACUTE EVENTS ON TELE OVERNIGHT. NSR ON TELE. PT REPORTS PAIN IN HER HIP FROM RECENT FALL AT HOME THAT HAS BEEN MANAGED WITH MEDS PER EMAR. VITALS STABLE. BED IN LOWEST POSITION, CALL LIGHT WITHIN REACH.
[2023-11-19 08:11] VITALS: BP 150/100
[2023-11-19] MEDS ORDERED: AmLODIPine Besylate 5 MG Tab PO SCH (09:00)
[2023-11-19] MEDS ORDERED: dilTIAZem HCL 120 MG CAP.CD PO SCH (09:00)
[2023-11-19] MEDS ORDERED: Enoxaparin 40 MG/0.4 ML SYR SC SCH (09:00)
--- NOTE | 2023-11-19 09:00 | NUR ---
Pt laying in bed awake watching tv, a/ox4, pleasant and cooperative with care, follows commands well, reports hip pain, lungs are clear t/o, resp even and unlabored, no cough noted, hrr, no edema noted to b/l le, ppp+2, cap refill <3 sec, vs stable, but b/p too high for midodrine, piv to rfa site is clear and patent, btx4, abd flat soft nontender, voids via bathroom without diff, skin c/w/d, edwardo raza, call light in reach.
[2023-11-19] MEDS ORDERED: Potassium Chloride 40 MEQ in NS 250 ML IV ONE (09:05)
[2023-11-19] MEDS ORDERED: NS 250 ML IV PRN (09:45)
[2023-11-19] MEDS ORDERED: Mag Sulfate 1 GM/D5% 100ML 100 ML IV STA (11:45)
[2023-11-19 13:14] VITALS: BP 105/69
[2023-11-19 15:46] VITALS: BP 123/65
[2023-11-19 16:53] VITALS: BP 131/79
--- NOTE | 2023-11-19 18:08 | NUR ---
pt complains of hip pain, otherwise had an uneventful day. no acute changes call light in reach.
[2023-11-19 20:06] VITALS: BP 136/78
[2023-11-20 03:01] VITALS: BP 121/79
[2023-11-20 05:14] LABS: Hematocrit 35.3 % (33.0-51.0); Hemoglobin 11.6 g/dL (11.5-16.0)
--- NOTE | 2023-11-20 05:23 | NUR ---
END OF SHIFT SUMMARY PT A&OX4. UP TO BSC INDEPENDENTLY, TOLERATING WELL. PAIN TO RIGHT HIP/LEG, MEDICATED PER EMAR WITH GOOD EFFECT. NO NEW EVENTS OVERNIGHT.
[2023-11-20 05:50] LABS: Creatinine, Blood 0.8 mg/dL (0.40-1.00); Magnesium, Blood 1.8 mg/dL (1.6-2.4); Potassium, Blood 3.8 mmol/L (3.5-5.5)
[2023-11-20] MEDS ORDERED: Levothyroxine Sodium 0.088 MG Tab PO SCH (06:00)
[2023-11-20 07:19] VITALS: BP 122/91
[2023-11-20] MEDS ORDERED: SENN187 PO (10:45)
[2023-11-20] MEDS ORDERED: PANT20 PO (10:45)
[2023-11-20] MEDS ORDERED: OXAYDO5 M1 PO (10:48)
--- NOTE | 2023-11-20 13:24 | NUR ---
PT DC THIS SHIFT AT APPROXIMATLY 1145 PT WAS EXCORTED VIA WHEELCHAIR BY RESIDENT CARE COORDINATOR TO PRIVATE VEHICLE WITH SON. PT STATED UNDERSTANDING TO DC INSTRUCTION AND EDUCATION.
== END 2023-11-20 11:49 | disposition home health service (06) | DRG 683 ==
LOC: ER 08:35 → MEDS 15:29
PROVIDERS: Emergency Medicine; Student in an Organized Health Care Education/Training Program; ADMIT Internal Medicine
DX: N17.9 Acute kidney failure, unspecified (principal); E87.1 Hypo-osmolality and hyponatremia; I48.91 Unspecified atrial fibrillation; I25.10 Atherosclerotic heart disease of native coronary artery without angina pectoris; J44.9 Chronic obstructive pulmonary disease, unspecified; K21.9 Gastro-esophageal reflux disease without esophagitis; I10 Essential (primary) hypertension; E83.42 Hypomagnesemia; E03.9 Hypothyroidism, unspecified; E11.9 Type 2 diabetes mellitus without complications; Z90.49 Acquired absence of other specified parts of digestive tract; Z88.6 Allergy status to analgesic agent; Z91.041 Radiographic dye allergy status; Z88.5 Allergy status to narcotic agent; Z88.0 Allergy status to penicillin; Z88.8 Allergy status to other drugs, medicaments and biological substances; Z91.048 Other nonmedicinal substance allergy status; I25.2 Old myocardial infarction; Z85.118 Personal history of other malignant neoplasm of bronchus and lung; Z92.21 Personal history of antineoplastic chemotherapy; Z92.3 Personal history of irradiation; Z90.2 Acquired absence of lung [part of]; M19.90 Unspecified osteoarthritis, unspecified site; F32.A Depression, unspecified; E78.5 Hyperlipidemia, unspecified; Z87.19 Personal history of other diseases of the digestive system; L40.9 Psoriasis, unspecified; Z98.890 Other specified postprocedural states; Z95.5 Presence of coronary angioplasty implant and graft; Z90.89 Acquired absence of other organs; Z90.710 Acquired absence of both cervix and uterus; Z90.722 Acquired absence of ovaries, bilateral; Z87.891 Personal history of nicotine dependence; Z91.81 History of falling; M25.551 Pain in right hip; Z87.440 Personal history of urinary (tract) infections
CPT/HCPCS: 0241U; 36415; 71045; 72192; 73502; 80048; 80053; 83735; 84484; 85014; 85018; 85025; 93005; 93010; 94640; 94664; 94760; 96361; 96365; 96375; 96376; 97110; 97162; 99284-25; A9270; G0378; J2405; J3475; J3480; J7030; J7050

== ENCOUNTER 2023-11-29 17:40 | Emergency (ER) | payer MEDICARE ==
[~2023-11-29] VITALS: Ht 152.4 cm; Wt 63.5 kg
[~2023-11-29 17:40] MED LIST changes: +MIDO5 PO; +OXAYDO5 M1 PO; +SENN187 PO
[2023-11-29 18:29] LABS: BASOPHILS ABSOLUTE AUTO 0.05 K/mm3 (0.00-0.23); BASOPHILS PERCENT AUTO 1 % (0-2); EOSINOPHILS ABSOLUTE AUTO 0.04 K/mm3 (0.00-0.68); EOSINOPHILS PERCENT AUTO 0 % (0-6); Hematocrit 42.4 % (33.0-51.0); Hemoglobin 14.4 g/dL (11.5-16.0); IMMATURE GRAN ABSOLUTE AUTO 0.03 K/mm3 (0.00-0.10); IMMATURE GRAN PERCENT AUTO 0 % (0-1); LYMPHOCYTES ABSOLUTE AUTO 0.69 K/mm3 (0.84-5.20); LYMPHOCYTES PERCENT AUTO 6 % (21-46); MONOCYTES ABSOLUTE AUTO 0.75 K/mm3 (0.16-1.47); MONOCYTES PERCENT AUTO 7 % (4-13); Mean Corpuscular Volume 91 fL (80-100); Mean Platelet Volume 9.9 fL (9.1-12.4); NEUTROPHILS ABSOLUTE AUTO 9.23 K/mm3 (1.96-9.15); NEUTROPHILS PERCENT AUTO 85 % (41-73); Platelet Count 297 K/mm3 (150-400); RDW Coefficient Variation 12.6 % (11.7-14.2); RDW Standard Deviation 41.9 fL (35.1-46.3); Red Blood Cell Count 4.64 M/mm3 (3.80-5.20); White Blood Cell Count 10.79 K/mm3 (4.00-11.30)
[2023-11-29 18:55] LABS: Albumin, Blood 3.9 g/dL (3.4-5.0); Bun/Creatinine Ratio 25.2 (12.0-20.0); Calcium, Blood 9.9 mg/dL (8.5-10.1); Creatinine, Blood 0.71 mg/dL (0.40-1.00); Globulin, Blood 4.1 g/dL (2.2-4.0); Potassium, Blood 4.4 mmol/L (3.5-5.5)
[2023-11-29] MEDS ORDERED: Ondansetron HCl 2 MG / ML 2ML Vial IV ONE (19:30)
[2023-11-29 19:53] LABS: Magnesium, Blood 1.4 mg/dL (1.6-2.4)
[2023-11-29] MEDS ORDERED: Mag Sulfate 1 GM/D5% 100ML 100 ML IV ONE (21:10)
[2023-11-29] MEDS ORDERED: Prochlorperazine Edisylate 10 mg Vial IV ONE (21:35)
[2023-11-29 22:07] LABS: Source, Urine Voided
[2023-11-29 22:20] LABS: Appearance, Urine Clear (Clear); Bilirubin, Urine Neg (Neg); Blood, Urine Neg (Neg); Color, Urine Yellow (P-Yellow); Glucose Qualitative, Urine Neg (Neg); Ketones, Urine 2+ (Neg); Leukocyte Esterase, Urine 1+ (Neg); Nitrite, Urine Neg (Neg); Protein, Urine 2+ (Neg); Urobilinogen, Urine NORM (Normal)
[2023-11-29 22:26] LABS: Bacteria Few /hpf; Red Blood Cells, Urine 0-2 /hpf (0-2); Squamous Epithelial Cells Few /hpf (Few)
[2023-11-30 00:15] VITALS: BP 109/88
== END 2023-11-30 00:25 | disposition home or self-care (01) ==
LOC: ER 17:40
PROVIDERS: Emergency Medicine
DX: R53.1 Weakness (principal); R07.89 Other chest pain; E83.42 Hypomagnesemia; I48.91 Unspecified atrial fibrillation; I25.10 Atherosclerotic heart disease of native coronary artery without angina pectoris; I25.2 Old myocardial infarction; J44.9 Chronic obstructive pulmonary disease, unspecified; E03.9 Hypothyroidism, unspecified; F32.A Depression, unspecified; I10 Essential (primary) hypertension; E78.5 Hyperlipidemia, unspecified; G62.9 Polyneuropathy, unspecified; L40.50 Arthropathic psoriasis, unspecified; Z91.81 History of falling; Z87.440 Personal history of urinary (tract) infections; Z85.118 Personal history of other malignant neoplasm of bronchus and lung; Z90.2 Acquired absence of lung [part of]; Z95.5 Presence of coronary angioplasty implant and graft; Z90.49 Acquired absence of other specified parts of digestive tract; Z98.1 Arthrodesis status; Z87.891 Personal history of nicotine dependence; Z88.0 Allergy status to penicillin; Z88.6 Allergy status to analgesic agent; Z91.041 Radiographic dye allergy status; Z88.5 Allergy status to narcotic agent; Z88.8 Allergy status to other drugs, medicaments and biological substances; Z79.51 Long term (current) use of inhaled steroids; Z79.01 Long term (current) use of anticoagulants; Z79.890 Hormone replacement therapy; Z79.899 Other long term (current) drug therapy
CPT/HCPCS: 71045; 80053; 81001; 83735; 84484; 85025; 87086; 93005; 93010; 96365; 96375; 99285-25; J0780; J2405; J3475

== ENCOUNTER 2024-01-12 02:59 | Day surgery (SDC) | payer MEDICARE ==
[~2024-01-12 02:59] MED LIST changes: +Amiodarone HCl200 MG PO; -LEVSOD75; +LEVSOD75 PO; +MECL25 PO; +OXYC5 PO
[2024-01-12] MEDS ORDERED: Magnesium Sulf 2 GM/Water 50ML 50 ML IV SCH (06:00)
[2024-01-12 14:45] VITALS: BP 102/67
== END 2024-01-12 16:40 | disposition home or self-care (01) ==
LOC: ATC 02:59
DX: E83.42 Hypomagnesemia (principal); I12.9 Hypertensive chronic kidney disease with stage 1 through stage 4 chronic kidney disease, or unspecified chronic kidney disease; N18.2 Chronic kidney disease, stage 2 (mild); Z79.899 Other long term (current) drug therapy; Z88.0 Allergy status to penicillin; Z88.8 Allergy status to other drugs, medicaments and biological substances
CPT/HCPCS: 96365; 96366; J3475

== ENCOUNTER → 2024-01-18 | Outpatient (CLI) | payer MEDICARE ==
[2024-01-19 14:05] LABS: Creatinine Urine 13.5 mg/dL (27.00-270.00); Microalbumin, Urine Quant. 39.1 mg/L (0.000-20.000); Protein, Urine Quantitative 12.2 mg/dL (0.0-11.9)
== END ==
LOC: LAB 12:02 → LAB SHORT 12:02
PROVIDERS: Internal Medicine Nephrology
DX: N18.30 Chronic kidney disease, stage 3 unspecified (principal); D63.1 Anemia in chronic kidney disease; D75.1 Secondary polycythemia; R76.9 Abnormal immunological finding in serum, unspecified; R94.5 Abnormal results of liver function studies; R94.6 Abnormal results of thyroid function studies; N25.81 Secondary hyperparathyroidism of renal origin; E55.9 Vitamin D deficiency, unspecified; E78.00 Pure hypercholesterolemia, unspecified; D51.8 Other vitamin B12 deficiency anemias; D52.8 Other folate deficiency anemias; D50.9 Iron deficiency anemia, unspecified
CPT/HCPCS: 81050; 82043; 82570; 84156

== ENCOUNTER 2024-01-31 17:42 | Emergency (ER) | payer MEDICARE ==
[~2024-01-31] VITALS: Ht 160 cm; Wt 70.3 kg
[2024-01-31 18:35] LABS: BASOPHILS ABSOLUTE AUTO 0.07 K/mm3 (0.00-0.23); BASOPHILS PERCENT AUTO 1 % (0-2); EOSINOPHILS ABSOLUTE AUTO 0.11 K/mm3 (0.00-0.68); EOSINOPHILS PERCENT AUTO 1 % (0-6); Hemoglobin 13.5 g/dL (11.5-16.0); IMMATURE GRAN ABSOLUTE AUTO 0.02 K/mm3 (0.00-0.10); IMMATURE GRAN PERCENT AUTO 0 % (0-1); LYMPHOCYTES ABSOLUTE AUTO 1.57 K/mm3 (0.84-5.20); LYMPHOCYTES PERCENT AUTO 18 % (21-46); MONOCYTES ABSOLUTE AUTO 0.63 K/mm3 (0.16-1.47); MONOCYTES PERCENT AUTO 7 % (4-13); Mean Corpuscular HGB Conc 33.8 g/dL (31.5-36.5); Mean Corpuscular Volume 92 fL (80-100); Mean Platelet Volume 9.6 fL (9.1-12.4); NEUTROPHILS ABSOLUTE AUTO 6.39 K/mm3 (1.96-9.15); NEUTROPHILS PERCENT AUTO 73 % (41-73); Platelet Count 259 K/mm3 (150-400); RDW Coefficient Variation 12.5 % (11.7-14.2); RDW Standard Deviation 42.5 fL (35.1-46.3); Red Blood Cell Count 4.35 M/mm3 (3.80-5.20); White Blood Cell Count 8.79 K/mm3 (4.00-11.30)
[2024-01-31 18:59] LABS: Albumin, Blood 4.1 g/dL (3.4-5.0); Albumin/Globulin Ratio 1.1 (0.8-1.8); Bilirubin, Total 0.4 mg/dL (0.1-1.0); Bun/Creatinine Ratio 25.4 (12.0-20.0); Calcium, Blood 9.2 mg/dL (8.5-10.1); Creatinine, Blood 0.75 mg/dL (0.40-1.00); Globulin, Blood 3.8 g/dL (2.2-4.0); Potassium, Blood 3.2 mmol/L (3.5-5.5); Total Protein, Blood 7.9 g/dL (6.4-8.2)
[2024-01-31] MEDS ORDERED: DiphenhydrAMINE HCl 50 MG/ML 1ML Vial IV ONE (20:40)
[2024-01-31] MEDS ORDERED: MethylPREDNISolone Sod Succ 125 MG Vial IV ONE (20:40)
[2024-01-31] MEDS ORDERED: Morphine Sulfate 4 MG/1 ML Injection IV ONE (20:55)
[2024-01-31 22:00] VITALS: BP 153/106
[2024-01-31] MEDS ORDERED: Azithromycin 250 MG Tab PO ONE (22:00)
[2024-01-31] MEDS ORDERED: DELTASONE20 MG PO (22:02)
[2024-01-31] MEDS ORDERED: AZIT250 PO (22:02)
== END 2024-01-31 22:29 | disposition home or self-care (01) ==
LOC: ER 17:42
PROVIDERS: Emergency Medicine
DX: J44.0 Chronic obstructive pulmonary disease with (acute) lower respiratory infection (principal); J18.9 Pneumonia, unspecified organism; J44.1 Chronic obstructive pulmonary disease with (acute) exacerbation; I25.10 Atherosclerotic heart disease of native coronary artery without angina pectoris; E03.9 Hypothyroidism, unspecified; I48.91 Unspecified atrial fibrillation; I10 Essential (primary) hypertension; E78.5 Hyperlipidemia, unspecified; Z87.891 Personal history of nicotine dependence
CPT/HCPCS: 71046; 71260; 80053; 84484; 85025; 93005; 93010; 96374-59; 96375-59; 99285-25; A9270; J1200; J2270; J2919; Q9967

== ENCOUNTER 2024-04-21 23:08 | Emergency (ER) | payer MEDICARE ==
[~2024-04-21] VITALS: Ht 162.6 cm; Wt 63.5 kg
[~2024-04-21 23:08] MED LIST changes: +AZIT250 PO; +DELTASONE20 MG PO
[2024-04-21 23:40] LABS: BASOPHILS ABSOLUTE AUTO 0.06 K/mm3 (0.00-0.23); BASOPHILS PERCENT AUTO 1 % (0-2); EOSINOPHILS ABSOLUTE AUTO 0.12 K/mm3 (0.00-0.68); EOSINOPHILS PERCENT AUTO 1 % (0-6); Hematocrit 36.3 % (33.0-51.0); Hemoglobin 12.9 g/dL (11.5-16.0); IMMATURE GRAN ABSOLUTE AUTO 0.02 K/mm3 (0.00-0.10); IMMATURE GRAN PERCENT AUTO 0 % (0-1); LYMPHOCYTES ABSOLUTE AUTO 1.38 K/mm3 (0.84-5.20); LYMPHOCYTES PERCENT AUTO 17 % (21-46); MONOCYTES ABSOLUTE AUTO 0.91 K/mm3 (0.16-1.47); MONOCYTES PERCENT AUTO 11 % (4-13); Mean Corpuscular HGB 32.3 pg (26.0-34.0); Mean Corpuscular HGB Conc 35.5 g/dL (31.5-36.5); Mean Corpuscular Volume 91 fL (80-100); Mean Platelet Volume 9.6 fL (9.1-12.4); NEUTROPHILS ABSOLUTE AUTO 5.87 K/mm3 (1.96-9.15); NEUTROPHILS PERCENT AUTO 70 % (41-73); Platelet Count 265 K/mm3 (150-400); RDW Coefficient Variation 11.9 % (11.7-14.2); Red Blood Cell Count 3.99 M/mm3 (3.80-5.20); White Blood Cell Count 8.36 K/mm3 (4.00-11.30)
[2024-04-22 00:16] LABS: Calcium, Blood 8.8 mg/dL (8.5-10.1); Free Thyroxine 1.21 ng/dL (0.70-1.60); Magnesium, Blood 1.6 mg/dL (1.6-2.4); Potassium, Blood 3.7 mmol/L (3.5-5.5); Thyroid Stimulating Hormone 12.9 uIU/mL (0.360-4.800)
[2024-04-22 00:25] LABS: Source, Urine Clean Catch
[2024-04-22] MEDS ORDERED: NS 1,000 ML IV SCH (00:25)
[2024-04-22 00:28] LABS: Bilirubin, Urine Neg (Neg); Blood, Urine 2+ (Neg); Glucose Qualitative, Urine Neg (Neg); Ketones, Urine Neg (Neg); Leukocyte Esterase, Urine 3+ (Neg); Nitrite, Urine Neg (Neg); Protein, Urine 1+ (Neg); Urobilinogen, Urine NORM (Normal); pH, Urine 6.5 (5.0-8.0)
[2024-04-22 00:35] LABS: Amorphous Light (0-Heavy); Appearance, Urine Hazy (Clear); Bacteria Few /hpf; Color, Urine Yellow (P-Yellow); Red Blood Cells, Urine 0-2 /hpf (0-2); Squamous Epithelial Cells Few /hpf (Few); White Blood Cells, Urine 50-100 /hpf (0-5)
[2024-04-22] MEDS ORDERED: Morphine Sulfate 4 MG/1 ML Injection IV ONE (00:50)
[2024-04-22] MEDS ORDERED: Ciprofloxacin 400MG/D5 200ML 200 ML IV ONE (01:10)
[2024-04-22] MEDS ORDERED: SULTRIDS PO (02:47)
[2024-04-22 03:00] VITALS: BP 91/67
== END 2024-04-22 03:55 | disposition home or self-care (01) ==
LOC: ER 23:08
PROVIDERS: Emergency Medicine
DX: S50.312A Abrasion of left elbow, initial encounter (principal); N39.0 Urinary tract infection, site not specified; M25.512 Pain in left shoulder; E03.9 Hypothyroidism, unspecified; E78.00 Pure hypercholesterolemia, unspecified; F17.200 Nicotine dependence, unspecified, uncomplicated; I10 Essential (primary) hypertension; I25.10 Atherosclerotic heart disease of native coronary artery without angina pectoris; W18.30XA Fall on same level, unspecified, initial encounter; Z88.0 Allergy status to penicillin; Z88.4 Allergy status to anesthetic agent; Z88.5 Allergy status to narcotic agent; Z91.041 Radiographic dye allergy status; Z88.8 Allergy status to other drugs, medicaments and biological substances; Z79.01 Long term (current) use of anticoagulants; Z79.2 Long term (current) use of antibiotics; Z79.899 Other long term (current) drug therapy
CPT/HCPCS: 70450; 71045; 72125; 72170; 73030; 73070; 80048; 81001; 82607; 83735; 84439; 84443; 85025; 93005; 93010; 96374; 96375; 99285-25; J0744; J2270; J7030

== ENCOUNTER 2024-05-29 19:04 | Emergency (ER) | payer OTHER ==
[~2024-05-29] VITALS: Ht 152.4 cm; Wt 63.5 kg
[~2024-05-29 19:04] MED LIST changes: +SULTRIDS PO
[2024-05-29 20:04] LABS: BASOPHILS ABSOLUTE AUTO 0.05 K/mm3 (0.00-0.23); BASOPHILS PERCENT AUTO 1 % (0-2); EOSINOPHILS ABSOLUTE AUTO 0.08 K/mm3 (0.00-0.68); EOSINOPHILS PERCENT AUTO 1 % (0-6); Hematocrit 34.3 % (33.0-51.0); Hemoglobin 11.9 g/dL (11.5-16.0); IMMATURE GRAN ABSOLUTE AUTO 0.01 K/mm3 (0.00-0.10); IMMATURE GRAN PERCENT AUTO 0 % (0-1); LYMPHOCYTES ABSOLUTE AUTO 1.41 K/mm3 (0.84-5.20); LYMPHOCYTES PERCENT AUTO 22 % (21-46); MONOCYTES ABSOLUTE AUTO 0.66 K/mm3 (0.16-1.47); MONOCYTES PERCENT AUTO 10 % (4-13); Mean Corpuscular HGB 31.8 pg (26.0-34.0); Mean Corpuscular HGB Conc 34.7 g/dL (31.5-36.5); Mean Corpuscular Volume 92 fL (80-100); Mean Platelet Volume 9.6 fL (9.1-12.4); NEUTROPHILS ABSOLUTE AUTO 4.33 K/mm3 (1.96-9.15); NEUTROPHILS PERCENT AUTO 66 % (41-73); Platelet Count 242 K/mm3 (150-400); RDW Coefficient Variation 12.4 % (11.7-14.2); RDW Standard Deviation 41.5 fL (35.1-46.3); Red Blood Cell Count 3.74 M/mm3 (3.80-5.20); White Blood Cell Count 6.54 K/mm3 (4.00-11.30)
[2024-05-29] MEDS ORDERED: Lactated Ringer's 1,000 ML IV ONE (20:10)
[2024-05-29] MEDS ORDERED: Ondansetron HCl 2 MG / ML 2ML Vial IV ONE (20:10)
[2024-05-29 20:21] LABS: Albumin, Blood 3.4 g/dL (3.4-5.0); Bilirubin, Total 0.5 mg/dL (0.1-1.0); Bun/Creatinine Ratio 24.2 (12.0-20.0); Calcium, Blood 8.7 mg/dL (8.5-10.1); Creatinine, Blood 0.91 mg/dL (0.40-1.00); Globulin, Blood 3.5 g/dL (2.2-4.0); Potassium, Blood 3.5 mmol/L (3.5-5.5); Total Protein, Blood 6.9 g/dL (6.4-8.2)
[2024-05-29 21:16] LABS: Source, Urine Clean Catch
[2024-05-29 21:19] LABS: Bilirubin, Urine Neg (Neg); Blood, Urine Neg (Neg); Glucose Qualitative, Urine Neg (Neg); Ketones, Urine Neg (Neg); Leukocyte Esterase, Urine 3+ (Neg); Nitrite, Urine Neg (Neg); Protein, Urine 1+ (Neg); Urobilinogen, Urine NORM (Normal)
[2024-05-29 21:26] LABS: Appearance, Urine Hazy (Clear); Color, Urine Pale Yellow (P-Yellow)
[2024-05-29 21:27] LABS: Amorphous Light (0-Heavy); Bacteria Few /hpf; Red Blood Cells, Urine Not Seen /hpf (0-2); Squamous Epithelial Cells Few /hpf (Few); Transitional Epithelial Cells Few /hpf (0-Rare)
[2024-05-29 21:34] LABS: CORONAVIRUS COVID-19 AG Negative (NEGATIVE); INFLUENZA A AG Negative (NEGATIVE); INFLUENZA B AG Negative (NEGATIVE)
[2024-05-29] MEDS ORDERED: Trimethoprim/Sulfamethoxazole DS Tab PO ONE (22:30)
[2024-05-29 22:48] VITALS: BP 112/77
[2024-05-29] MEDS ORDERED: BACTRIM DS TAB1 EAC1 PO (22:49)
== END 2024-05-29 23:17 | disposition home or self-care (01) ==
LOC: ER 19:04
PROVIDERS: Student in an Organized Health Care Education/Training Program
DX: N30.00 Acute cystitis without hematuria (principal); E87.1 Hypo-osmolality and hyponatremia; I25.10 Atherosclerotic heart disease of native coronary artery without angina pectoris; I25.2 Old myocardial infarction; J44.9 Chronic obstructive pulmonary disease, unspecified; E03.9 Hypothyroidism, unspecified; I48.91 Unspecified atrial fibrillation; I10 Essential (primary) hypertension; E78.5 Hyperlipidemia, unspecified; Z87.891 Personal history of nicotine dependence; Z88.0 Allergy status to penicillin; Z88.6 Allergy status to analgesic agent; Z91.041 Radiographic dye allergy status; Z88.8 Allergy status to other drugs, medicaments and biological substances; Z91.048 Other nonmedicinal substance allergy status; Z79.51 Long term (current) use of inhaled steroids; Z79.01 Long term (current) use of anticoagulants; Z79.890 Hormone replacement therapy; Z79.52 Long term (current) use of systemic steroids; Z79.899 Other long term (current) drug therapy
CPT/HCPCS: 74176; 80053; 81001; 83690; 84484; 85025; 86850; 86900; 86901; 87077; 87086; 87186; 87428-QW; 93005; 93010; 96361; 96374; 99285-25; A9270; J2405; J7120

== ENCOUNTER 2024-07-16 16:59 | Emergency (ER) | payer OTHER ==
[~2024-07-16] VITALS: Ht 152.4 cm; Wt 63.5 kg
[~2024-07-16 16:59] MED LIST changes: +BACTRIM DS TAB1 EAC1 PO
[2024-07-16] MEDS ORDERED: ALBU90OI INH (18:09)
[2024-07-16] MEDS ORDERED: ALBU2.5V5 INH (18:09)
[2024-07-16] MEDS ORDERED: OLME20 PO (18:13)
[2024-07-16 18:18] LABS: Source, Urine Clean Catch
[2024-07-16 18:20] LABS: BASOPHILS ABSOLUTE AUTO 0.07 K/mm3 (0.00-0.23); BASOPHILS PERCENT AUTO 1 % (0-2); EOSINOPHILS PERCENT AUTO 1 % (0-6); Hematocrit 36.2 % (33.0-51.0); Hemoglobin 12.3 g/dL (11.5-16.0); IMMATURE GRAN ABSOLUTE AUTO 0.04 K/mm3 (0.00-0.10); IMMATURE GRAN PERCENT AUTO 1 % (0-1); LYMPHOCYTES ABSOLUTE AUTO 1.34 K/mm3 (0.84-5.20); LYMPHOCYTES PERCENT AUTO 16 % (21-46); MONOCYTES ABSOLUTE AUTO 0.75 K/mm3 (0.16-1.47); MONOCYTES PERCENT AUTO 9 % (4-13); Mean Corpuscular HGB 31.6 pg (26.0-34.0); Mean Corpuscular Volume 93 fL (80-100); Mean Platelet Volume 9.4 fL (9.1-12.4); NEUTROPHILS ABSOLUTE AUTO 6.23 K/mm3 (1.96-9.15); NEUTROPHILS PERCENT AUTO 73 % (41-73); Platelet Count 241 K/mm3 (150-400); RDW Coefficient Variation 12.6 % (11.7-14.2); Red Blood Cell Count 3.89 M/mm3 (3.80-5.20); White Blood Cell Count 8.53 K/mm3 (4.00-11.30)
[2024-07-16] MEDS ORDERED: Midodrine 5 MG Tab PO ONE (18:20)
[2024-07-16] MEDS ORDERED: NS 1,000 ML IV SCH (18:20)
[2024-07-16 18:22] LABS: Appearance, Urine Clear (Clear); Bilirubin, Urine Neg (Neg); Blood, Urine Neg (Neg); Color, Urine Yellow (P-Yellow); Glucose Qualitative, Urine Neg (Neg); Ketones, Urine Neg (Neg); Leukocyte Esterase, Urine 1+ (Neg); Nitrite, Urine Neg (Neg); Protein, Urine 1+ (Neg); Urobilinogen, Urine NORM (Normal)
[2024-07-16 18:33] LABS: Bacteria Few /hpf; Squamous Epithelial Cells Few /hpf (Few)
[2024-07-16] MEDS ORDERED: Acetaminophen 325 MG TABLET PO ONE (18:35)
[2024-07-16 18:44] LABS: Magnesium, Blood 1.5 mg/dL (1.6-2.4); Phosphorus, Blood 3.3 mg/dL (2.5-4.9)
[2024-07-16] MEDS ORDERED: Mag Sulfate 1 GM/D5% 100ML 100 ML IV ONE (19:05)
[2024-07-16] MEDS ORDERED: FentaNYL Citrate 50 MCG/ML 2 ML Injection IV ONE (19:40)
[2024-07-16 20:30] VITALS: BP 128/94
== END 2024-07-16 21:00 | disposition home or self-care (01) ==
LOC: ER 16:59
PROVIDERS: Student in an Organized Health Care Education/Training Program
DX: R07.89 Other chest pain (principal); R55 Syncope and collapse; I48.91 Unspecified atrial fibrillation; E83.42 Hypomagnesemia; I25.10 Atherosclerotic heart disease of native coronary artery without angina pectoris; I25.2 Old myocardial infarction; J44.9 Chronic obstructive pulmonary disease, unspecified; E03.9 Hypothyroidism, unspecified; I10 Essential (primary) hypertension; E78.5 Hyperlipidemia, unspecified; Z87.891 Personal history of nicotine dependence; Z88.0 Allergy status to penicillin; Z88.6 Allergy status to analgesic agent; Z91.041 Radiographic dye allergy status; Z88.8 Allergy status to other drugs, medicaments and biological substances; Z88.5 Allergy status to narcotic agent; Z91.048 Other nonmedicinal substance allergy status; Z79.51 Long term (current) use of inhaled steroids; Z79.01 Long term (current) use of anticoagulants; Z79.890 Hormone replacement therapy; Z79.899 Other long term (current) drug therapy
CPT/HCPCS: 71046; 81001; 83735; 83880; 84100; 84484; 85025; 87086; 93005; 93010; 96361; 96374; 99285-25; A9270; J3010; J7030

== ENCOUNTER 2024-07-28 19:28 | Emergency (ER) | payer OTHER ==
[~2024-07-28] VITALS: Ht 160 cm; Wt 80.7 kg
[~2024-07-28 19:28] MED LIST changes: +ALBU2.5V5 INH; +OLME20 PO
[2024-07-28 19:59] LABS: BASOPHILS ABSOLUTE AUTO 0.05 K/mm3 (0.00-0.23); BASOPHILS PERCENT AUTO 1 % (0-2); EOSINOPHILS ABSOLUTE AUTO 0.08 K/mm3 (0.00-0.68); EOSINOPHILS PERCENT AUTO 1 % (0-6); Hematocrit 35.3 % (33.0-51.0); Hemoglobin 12.4 g/dL (11.5-16.0); IMMATURE GRAN ABSOLUTE AUTO 0.01 K/mm3 (0.00-0.10); IMMATURE GRAN PERCENT AUTO 0 % (0-1); LYMPHOCYTES ABSOLUTE AUTO 1.28 K/mm3 (0.84-5.20); LYMPHOCYTES PERCENT AUTO 18 % (21-46); MONOCYTES ABSOLUTE AUTO 0.59 K/mm3 (0.16-1.47); MONOCYTES PERCENT AUTO 8 % (4-13); Mean Corpuscular HGB 32.1 pg (26.0-34.0); Mean Corpuscular HGB Conc 35.1 g/dL (31.5-36.5); Mean Corpuscular Volume 92 fL (80-100); Mean Platelet Volume 9.3 fL (9.1-12.4); NEUTROPHILS PERCENT AUTO 72 % (41-73); Platelet Count 272 K/mm3 (150-400); RDW Coefficient Variation 12.4 % (11.7-14.2); RDW Standard Deviation 41.1 fL (35.1-46.3); Red Blood Cell Count 3.86 M/mm3 (3.80-5.20); White Blood Cell Count 7.11 K/mm3 (4.00-11.30)
[2024-07-28 20:20] LABS: Albumin, Blood 3.9 g/dL (3.4-5.0); Bilirubin, Total 0.4 mg/dL (0.1-1.0); Bun/Creatinine Ratio 21.8 (12.0-20.0); Calcium, Blood 9.1 mg/dL (8.5-10.1); Creatinine, Blood 0.78 mg/dL (0.40-1.00); Globulin, Blood 3.8 g/dL (2.2-4.0); Potassium, Blood 3.8 mmol/L (3.5-5.5); Total Protein, Blood 7.7 g/dL (6.4-8.2)
[2024-07-28] MEDS ORDERED: Ondansetron HCl 2 MG / ML 2ML Vial IV ONE (23:15)
[2024-07-28 23:24] LABS: Source, Urine Clean Catch
[2024-07-28 23:31] LABS: Bilirubin, Urine Neg (Neg); Blood, Urine Neg (Neg); Glucose Qualitative, Urine Neg (Neg); Ketones, Urine Neg (Neg); Leukocyte Esterase, Urine Neg (Neg); Nitrite, Urine Neg (Neg); Protein, Urine 1+ (Neg); Urobilinogen, Urine NORM (Normal)
[2024-07-28 23:33] LABS: Appearance, Urine Clear (Clear); Color, Urine Yellow (P-Yellow)
[2024-07-29] MEDS ORDERED: Prochlorperazine Edisylate 10 mg Vial IV ONE (01:10)
[2024-07-29 01:30] VITALS: BP 124/75
[2024-07-29] MEDS ORDERED: METO5A PO (01:34)
== END 2024-07-29 01:50 | disposition home or self-care (01) ==
LOC: ER 19:28
PROVIDERS: Student in an Organized Health Care Education/Training Program
DX: K52.9 Noninfective gastroenteritis and colitis, unspecified (principal); K29.70 Gastritis, unspecified, without bleeding; I25.10 Atherosclerotic heart disease of native coronary artery without angina pectoris; J44.9 Chronic obstructive pulmonary disease, unspecified; E03.9 Hypothyroidism, unspecified; I10 Essential (primary) hypertension; Z79.52 Long term (current) use of systemic steroids; Z79.02 Long term (current) use of antithrombotics/antiplatelets; Z79.890 Hormone replacement therapy; Z79.899 Other long term (current) drug therapy; Z91.09 Other allergy status, other than to drugs and biological substances; Z88.6 Allergy status to analgesic agent; Z87.891 Personal history of nicotine dependence
CPT/HCPCS: 71046; 74176; 80053; 83690; 83880; 84484; 85025; 93005; 93010; J0780; J2405

== ENCOUNTER 2024-11-22 01:38 | Day surgery (SDC) | payer OTHER ==
[~2024-11-22 01:38] MED LIST changes: +METO5A PO; +OXYCODONE-ACET1 EAC3 PO
[2024-11-22] MEDS ORDERED: Mag Sulfate 1 GM/D5% 100ML 100 ML IV SCH (06:00)
[2024-11-22 13:13] VITALS: BP 120/91
== END 2024-11-22 17:45 | disposition home or self-care (01) ==
LOC: ATC 01:38
DX: E87.6 Hypokalemia (principal); E83.42 Hypomagnesemia; I12.9 Hypertensive chronic kidney disease with stage 1 through stage 4 chronic kidney disease, or unspecified chronic kidney disease; N18.1 Chronic kidney disease, stage 1; E86.9 Volume depletion, unspecified; D63.1 Anemia in chronic kidney disease; N25.81 Secondary hyperparathyroidism of renal origin; D50.9 Iron deficiency anemia, unspecified; E87.1 Hypo-osmolality and hyponatremia; G60.9 Hereditary and idiopathic neuropathy, unspecified; Z79.899 Other long term (current) drug therapy; Z88.0 Allergy status to penicillin; Z88.6 Allergy status to analgesic agent
CPT/HCPCS: 96365; 96366; 96368; C1751; J3475; J3480; J7050

== ENCOUNTER 2024-12-14 00:47 | Day surgery (SDC) | payer OTHER ==
[2024-12-14] MEDS ORDERED: Potassium Chl 20MEQ/Water100ML 100 ML IV SCH (06:00)
[2024-12-14] MEDS ORDERED: Magnesium Sulf 2 GM/Water 50ML 50 ML IV SCH (06:00)
[2024-12-14 08:12] VITALS: BP 106/70
== END 2024-12-14 10:38 | disposition home or self-care (01) ==
LOC: ATC 00:47
DX: E87.6 Hypokalemia (principal); E83.42 Hypomagnesemia; I12.9 Hypertensive chronic kidney disease with stage 1 through stage 4 chronic kidney disease, or unspecified chronic kidney disease; N18.1 Chronic kidney disease, stage 1; E11.22 Type 2 diabetes mellitus with diabetic chronic kidney disease; D63.1 Anemia in chronic kidney disease; N25.81 Secondary hyperparathyroidism of renal origin; G60.9 Hereditary and idiopathic neuropathy, unspecified; Z88.0 Allergy status to penicillin; Z88.6 Allergy status to analgesic agent; Z88.8 Allergy status to other drugs, medicaments and biological substances; Z79.890 Hormone replacement therapy; Z79.899 Other long term (current) drug therapy
CPT/HCPCS: 96365; 96366; 96368; C1751; J3475; J3480

== ENCOUNTER 2024-12-15 00:15 | Day surgery (SDC) | payer OTHER ==
[~2024-12-15 00:15] MED LIST changes: +Magnesium Sulf 2 GM/Water 50ML 50 ML IV SCH; +Potassium Chl 20MEQ/Water100ML 100 ML IV SCH
[2024-12-15 08:09] VITALS: BP 98/63
== END 2024-12-15 10:10 | disposition home or self-care (01) ==
LOC: ATC 00:15
DX: E87.6 Hypokalemia (principal); E83.42 Hypomagnesemia; I12.9 Hypertensive chronic kidney disease with stage 1 through stage 4 chronic kidney disease, or unspecified chronic kidney disease; E11.22 Type 2 diabetes mellitus with diabetic chronic kidney disease; N18.1 Chronic kidney disease, stage 1; D63.1 Anemia in chronic kidney disease; N25.81 Secondary hyperparathyroidism of renal origin; G60.9 Hereditary and idiopathic neuropathy, unspecified; L40.50 Arthropathic psoriasis, unspecified; Z79.890 Hormone replacement therapy; Z79.899 Other long term (current) drug therapy; Z88.0 Allergy status to penicillin; Z88.6 Allergy status to analgesic agent; Z88.8 Allergy status to other drugs, medicaments and biological substances
CPT/HCPCS: 96365; 96366; 96368; J3475; J3480

== ENCOUNTER 2025-01-23 07:49 | Day surgery (SDC) | payer OTHER ==
[~2025-01-23 07:49] MED LIST changes: -Magnesium Sulf 2 GM/Water 50ML 50 ML IV SCH; -Potassium Chl 20MEQ/Water100ML 100 ML IV SCH
[2025-01-23] MEDS ORDERED: Potassium Chl 20MEQ/Water100ML 100 ML IV SCH (08:15)
[2025-01-23] MEDS ORDERED: Magnesium Sulf 2 GM/Water 50ML 50 ML IV SCH (08:15)
[2025-01-23 16:10] VITALS: BP 136/82
[2025-01-23] MEDS ORDERED: AMIL5 PO (16:41)
== END 2025-01-23 18:30 | disposition home or self-care (01) ==
LOC: ATC 07:49
DX: E87.6 Hypokalemia (principal); E83.42 Hypomagnesemia; I12.9 Hypertensive chronic kidney disease with stage 1 through stage 4 chronic kidney disease, or unspecified chronic kidney disease; E11.22 Type 2 diabetes mellitus with diabetic chronic kidney disease; N18.1 Chronic kidney disease, stage 1; D63.1 Anemia in chronic kidney disease; Z79.899 Other long term (current) drug therapy
CPT/HCPCS: 96365; 96368; C1751; J3475; J3480

== ENCOUNTER 2025-01-24 01:12 | Day surgery (SDC) | payer OTHER ==
[~2025-01-24 01:12] MED LIST changes: +AMIL5 PO
[2025-01-24] MEDS ORDERED: Magnesium Sulf 2 GM/Water 50ML 50 ML IV SCH (06:00)
[2025-01-24] MEDS ORDERED: Potassium Chl 20MEQ/Water100ML 100 ML IV SCH (06:00)
[2025-01-24 16:40] VITALS: BP 137/90
== END 2025-01-24 18:34 | disposition home or self-care (01) ==
LOC: ATC 01:12
DX: E87.6 Hypokalemia (principal); E83.42 Hypomagnesemia; I12.9 Hypertensive chronic kidney disease with stage 1 through stage 4 chronic kidney disease, or unspecified chronic kidney disease; E11.22 Type 2 diabetes mellitus with diabetic chronic kidney disease; N18.1 Chronic kidney disease, stage 1; D63.1 Anemia in chronic kidney disease; N25.81 Secondary hyperparathyroidism of renal origin; E11.21 Type 2 diabetes mellitus with diabetic nephropathy; Z79.899 Other long term (current) drug therapy; Z88.0 Allergy status to penicillin; Z88.8 Allergy status to other drugs, medicaments and biological substances
CPT/HCPCS: 96365; 96366; 96368; J3475; J3480

== ENCOUNTER 2025-01-27 00:55 | Day surgery (SDC) | payer OTHER ==
[2025-01-27] MEDS ORDERED: Magnesium Sulf 2 GM/Water 50ML 50 ML IV SCH (06:00)
[2025-01-27] MEDS ORDERED: Potassium Chl 20MEQ/Water100ML 100 ML IV SCH (06:00)
[2025-01-27 16:06] VITALS: BP 139/92
== END 2025-01-27 18:13 | disposition home or self-care (01) ==
LOC: ATC 00:55
DX: E87.6 Hypokalemia (principal); E83.42 Hypomagnesemia; I12.9 Hypertensive chronic kidney disease with stage 1 through stage 4 chronic kidney disease, or unspecified chronic kidney disease; N18.1 Chronic kidney disease, stage 1; E11.22 Type 2 diabetes mellitus with diabetic chronic kidney disease; N25.81 Secondary hyperparathyroidism of renal origin; D63.1 Anemia in chronic kidney disease
CPT/HCPCS: 96365; 96366; 96368; J3475; J3480

== ENCOUNTER 2025-02-05 01:52 | Day surgery (SDC) | payer OTHER ==
[2025-02-05] MEDS ORDERED: Magnesium Sulf 2 GM/Water 50ML 50 ML IV SCH (06:00)
[2025-02-05 15:37] VITALS: BP 130/84
== END 2025-02-05 17:54 | disposition home or self-care (01) ==
LOC: ATC 01:52
DX: E83.42 Hypomagnesemia (principal); I12.9 Hypertensive chronic kidney disease with stage 1 through stage 4 chronic kidney disease, or unspecified chronic kidney disease; E11.22 Type 2 diabetes mellitus with diabetic chronic kidney disease; N18.1 Chronic kidney disease, stage 1; N25.81 Secondary hyperparathyroidism of renal origin; Z88.0 Allergy status to penicillin; Z88.8 Allergy status to other drugs, medicaments and biological substances
CPT/HCPCS: 96365; 96366; J3475

== ENCOUNTER 2025-02-06 02:09 | Day surgery (SDC) | payer OTHER ==
[2025-02-05 15:37] VITALS: BP 130/84
--- NOTE | 2025-02-05 18:07 | NUR ---
THIS RN DOCUMENTED ON THE CORRECT PATIENT BUT THE WRONG DATE. ALL DOCUMENTATION WAS "UNDONE".
[2025-02-06] MEDS ORDERED: Magnesium Sulf 2 GM/Water 50ML 50 ML IV SCH ×2 (06:00)
[2025-02-06 15:35] VITALS: BP 112/74
== END 2025-02-06 17:26 | disposition home or self-care (01) ==
LOC: ATC 02:09
DX: E83.42 Hypomagnesemia (principal); I12.9 Hypertensive chronic kidney disease with stage 1 through stage 4 chronic kidney disease, or unspecified chronic kidney disease; N18.1 Chronic kidney disease, stage 1; E11.22 Type 2 diabetes mellitus with diabetic chronic kidney disease; N25.81 Secondary hyperparathyroidism of renal origin; E03.9 Hypothyroidism, unspecified; K21.9 Gastro-esophageal reflux disease without esophagitis; I48.20 Chronic atrial fibrillation, unspecified; Z88.0 Allergy status to penicillin; Z88.8 Allergy status to other drugs, medicaments and biological substances; Z79.890 Hormone replacement therapy; Z79.899 Other long term (current) drug therapy
CPT/HCPCS: 96365; 96366; J3475

== ENCOUNTER 2025-02-07 00:49 | Day surgery (SDC) | payer OTHER ==
[2025-02-07] MEDS ORDERED: Magnesium Sulf 2 GM/Water 50ML 50 ML IV SCH (06:00)
[2025-02-07 13:06] VITALS: BP 129/79
== END 2025-02-07 15:05 | disposition home or self-care (01) ==
LOC: ATC 00:49
DX: E83.42 Hypomagnesemia (principal); I12.9 Hypertensive chronic kidney disease with stage 1 through stage 4 chronic kidney disease, or unspecified chronic kidney disease; E11.22 Type 2 diabetes mellitus with diabetic chronic kidney disease; N18.1 Chronic kidney disease, stage 1; D63.1 Anemia in chronic kidney disease; N25.81 Secondary hyperparathyroidism of renal origin; E87.1 Hypo-osmolality and hyponatremia; G60.9 Hereditary and idiopathic neuropathy, unspecified; D50.9 Iron deficiency anemia, unspecified; Z79.899 Other long term (current) drug therapy; Z88.0 Allergy status to penicillin; Z88.6 Allergy status to analgesic agent; Z88.8 Allergy status to other drugs, medicaments and biological substances
CPT/HCPCS: 96365; 96366; J3475

== ENCOUNTER 2025-02-21 01:31 | Day surgery (SDC) | payer OTHER ==
[2025-02-21] MEDS ORDERED: Magnesium Sulf 2 GM/Water 50ML 50 ML IV SCH (06:00)
[2025-02-21 14:55] VITALS: BP 163/94
== END 2025-02-21 17:11 | disposition home or self-care (01) ==
LOC: ATC 01:31
DX: E83.42 Hypomagnesemia (principal); I12.9 Hypertensive chronic kidney disease with stage 1 through stage 4 chronic kidney disease, or unspecified chronic kidney disease; N18.1 Chronic kidney disease, stage 1; E11.22 Type 2 diabetes mellitus with diabetic chronic kidney disease; Z88.0 Allergy status to penicillin; Z88.8 Allergy status to other drugs, medicaments and biological substances; Z79.899 Other long term (current) drug therapy
CPT/HCPCS: 96365; 96366; J3475

== ENCOUNTER 2025-02-28 01:11 | Day surgery (SDC) | payer OTHER ==
[2025-02-28] MEDS ORDERED: Magnesium Sulf 2 GM/Water 50ML 50 ML IV SCH (06:00)
[2025-02-28 14:23] VITALS: BP 157/91
== END 2025-02-28 16:23 | disposition home or self-care (01) ==
LOC: ATC 01:11
DX: E83.42 Hypomagnesemia (principal); I12.9 Hypertensive chronic kidney disease with stage 1 through stage 4 chronic kidney disease, or unspecified chronic kidney disease; E11.22 Type 2 diabetes mellitus with diabetic chronic kidney disease; N18.1 Chronic kidney disease, stage 1; N25.81 Secondary hyperparathyroidism of renal origin
CPT/HCPCS: 96365; 96366; J3475